=== PATIENT | male | born 1985 | race Caucasian/White ===

== ENCOUNTER 2022-05-08 12:57 | Emergency (ER) | payer OTHER, SELFPAY ==
[2022-05-08] VITALS (8 sets, daily range): BP systolic 110–156; BP diastolic 77–93; PULSE 58–111; RESP 16; TEMP 36.6–36.8; O2SAT 97–100; BMI 23.3
--- NOTE | ~2022-05-08 | CT_ITS ---
EXAMINATION: CT HEAD WITHOUT CONTRAST CLINICAL INFORMATION: Headache, altered mental status COMPARISON: CT head 06/12/2013 TECHNIQUE: Contiguous axial imaging was performed from the skull base to vertex without intravenous administration of contrast. This CT examination was performed using dose optimization techniques as appropriate, variously including the following: *Automated exposure control *Adjustment of mA and/or kV according to patient size (this includes techniques or standardized protocols for targeted exams where dose is matched to indication/reason for exam; i.e. extremities or head) *Use of iterative reconstruction technique DLP: 1096 mGy-cm FINDINGS: There is no evidence of acute intracranial hemorrhage or territorial infarction. No abnormal mass effect or midline shift is seen. Reyes to white matter differentiation is well preserved. No extra-axial fluid collections are identified. The ventricles are normal in size. No abnormal attenuation in the brain parenchyma. No acute calvarial fracture.. Paranasal sinuses and mastoid air cells are well-aerated. CT/CT head/brain wo IV con IMPRESSION: No CT evidence of acute intracranial hemorrhage or edematous territorial infarction.
--- NOTE | ~2022-05-08 | XR_ITS ---
EXAMINATION: CHEST 2 VIEWS CLINICAL INFORMATION: dizziness and ams . COMPARISON: 06/13/2013. TECHNIQUE: PA and lateral views of the chest obtained. FINDINGS: The lungs are well expanded. No focal infiltrate, effusion, edema, or pneumothorax. Cardiac and mediastinal silhouettes are within normal limits for technique. No acute bony abnormality seen XR/XR chest 2V IMPRESSION: No evidence of acute disease
--- NOTE | 2022-05-08 13:21 | ED_ITS ---
HPI - Dizziness General Chief Complaint: Dizziness <NEVIN Hernandez - Last Filed: 05/08/22 13:35> Stated Complaint: possible stroke last night? <NEVIN Hernandez - Last Filed: 05/08/22 13:35> Time Seen by Provider: 05/08/22 16:16 <NEVIN Hernandez - Last Filed: 05/08/22 13:35> Source: patient <NEVIN Tom - Last Filed: 05/09/22 16:28> Mode of arrival: ambulatory <NEVIN Tom - Last Filed: 05/09/22 16:28> Limitations: no limitations <NEVIN Tom Last Filed: 05/09/22 16:28> History of Present Illness HPI Narrative: 36-year-old male with past medical history of seizure presents to the ED for complaints of dizziness and nausea and vomiting. Patient states on Tuesday he had a steak at a restaurant that seem rare and on Tuesday started having multiple episodes of vomiting and diarrhea and also having multiple episodes of vomiting and also Tuesday vomiting with no other symptoms. The patient states on Tuesday he felt dizziness described as the room spinning. Patient said when he tried to move his head on the bed he felt dizzy. Patient states he try to get up he felt dizzy on Movements . Patient states he thought he had 1 episode during dizziness where his speech seems slurred like he wanted to say something but did not come out right. Patient did not have any other neuro symptoms such as visual loss, paralysis of extremities, or facial droop. Patient states dizziness improved want to be evaluated. Patient states he has had episodes of vertigo in the past but never officially diagnosed. Patient states history of marijuana use. Patient denies any history of crack cocaine heroine or alcohol abuse. Patient last used marijuana last week. <NEVIN Tom Last Filed: 05/09/22 16:28> Related Data Home Medications: Previous Rx's Medication Instructions Recorded meclizine 25 mg tablet 25 mg PO QID PRN dizziness 7 days 05/08/22 #28 tabs <NEVIN Hernandez - Last Filed: 05/08/22 13:35> Allergies/Adverse Reactions: Allergies Allergy/AdvReac Type Severity Reaction Status Date / Time acetaminophen [From VICODIN] Allergy Unknown VOMIT Verified 05/08/22 15:45 diazepam [From VALIUM] Allergy Unknown VOMIT Verified 05/08/22 15:45 hydrocodone [From VICODIN] Allergy Unknown VOMIT Verified 05/08/22 15:45 oxycodone [From PERCOCET] Allergy Unknown VOMIT Verified 05/08/22 15:45 <NEVIN Hernandez - Last Filed: 05/08/22 13:35> Review of Systems Review of Systems: Dizziness nausea vomiting <NEVIN Tom - Last Filed: 05/09/22 16:28> Yes all other systems are reviewed and are negative <NEVIN Tom - Last Filed: 05/09/22 16:28> PMFSH Past Medical History Medical History: Medical History (Updated 05/09/22 @ 00:01 by Kian Tolentino) Broken leg Epilepsy <NEVIN Hernandez - Last Filed: 05/08/22 13:35> Surgical History: Surgical History (Updated 05/08/22 @ 15:35 by Hilda Flanagan) History of discectomy <NEVIN Hernandez - Last Filed: 05/08/22 13:35> Social History Social History: Social History Alcohol intake: current Alcohol intake frequency: holidays/special occasions only Smoked in Last 30 Days: No Use of substances other than those prescribed or required for medical reasons: Yes Substance Use Type: Marijuana Advance Directives: No Advance Directives Information Provided: No <NEVIN Hernandez - Last Filed: 05/08/22 13:35> Physical Exam Vital Signs: Vital Signs: Last Vital Signs Temp 98.0 F 05/08/22 18:44 Pulse 73 05/08/22 18:44 Resp 16 05/08/22 18:44 BP 118/77 05/08/22 18:44 Pulse Ox 98 05/08/22 18:44 O2 Del Method 05/08/22 18:44 BMI result Body Mass Index 23.3 <NEVIN Hernandez - Last Filed: 05/08/22 13:35> Vital Signs: Last Vital Signs Temp 98.0 F 05/08/22 18:44 Pulse 73 05/08/22 18:44 Resp 16 05/08/22 18:44 BP 118/77 05/08/22 18:44 Pulse Ox 98 05/08/22 18:44 O2 Del Method 05/08/22 18:44 BMI result Body Mass Index 23.3 <NEVIN Tom Last Filed: 05/09/22 16:28> Const: General: cooperative, healthy appearing, comfortable, no acute distress, well developed, alert, awake and Physically active <NEVIN Tom Last Filed: 05/09/22 16:28> Orientation/consciousness: oriented to person, oriented to place, oriented to time and patient oriented x3 <NEVIN Tom Last Filed: 05/09/22 16:28> HEENT: Head: Yes normal to inspection, Yes No palpable skull fracture present, Yes normocephalic, Yes atraumatic and No abrasion <NEVIN Tom Last Filed: 05/09/22 16:28> Eyes: Other: Negative nystagmus <NEVIN Tom Filed: 05/09/22 16:28> General: appearance normal, both eyes and all related structures <NEVIN Tom Last Filed: 05/09/22 16:28> Pupils: Equal, round and reactive pupils present <NEVIN Tom Filed: 05/09/22 16:28> Neck: Neck: Yes normal visual inspection, Yes full ROM, Yes no lymphadenopathy, Yes no meningeal signs, Yes trachea midline, Yes supple, No anterior neck swelling and No tender <NEVIN Tom Filed: 05/09/22 16:28> Chest: Chest palpation & inspection: normal inspection of the chest and normal palpation of entire chest wall <NEVIN Tom Filed: 05/09/22 16:28> Breast/axilla palpation: normal palpation of the breasts <NEVIN Tom Last Filed: 05/09/22 16:28> Resp: Effort & Inspection: normal respiratory effort and able to speak in complete sentences <NEVIN Tom Filed: 05/09/22 16:28> Cardio: Jugular venous distension: no JVD <NEVIN Tom Last Filed: 05/09/22 16:28> Heart sounds: S1 normal heart sound present and S2 normal heart sound present <NEVIN Tom Last Filed: 05/09/22 16:28> GI: Inspection: Yes normal to inspection and No abdominal wall ecchymosis <NEVIN Tom Last Filed: 05/09/22 16:28> Palpation (GI): Soft to palpation, not firm, nontender, no guarding and not rigid <NEVIN Tom Last Filed: 05/09/22 16:28> : General: No CVA tenderness and Yes no CVA tenderness <NEVIN Tom Last Filed: 05/09/22 16:28> Back/Spine/Pelvis: Back: no CVA tenderness, No CVA tenderness and No back tenderness <NEVIN Tom Last Filed: 05/09/22 16:28> Skin: General skin exam: no rashes or lesions noted and elasticity normal <NEVIN Tom Mell Last Filed: 05/09/22 16:28> Neuro: Other: Negative facial droop. Negative slurred speech. Negative paralysis of extremities. Negative pronator drift. All extremities equal strength 5+. [id number] and rapid hand movement intact. Negative Romberg. Normal gait. <NEVIN Tom Mell Last Filed: 05/09/22 16:28> General: oriented to person, oriented to place, oriented to time, patient oriented x3, gait normal, tone normal, Normal light touch and pain sensation, no meningeal signs, no focal motor deficits, CN's II-XI intact bilaterally and normal sensation to monofilament <NEVIN Tom Last Filed: 05/09/22 16:28> Cranial nerves: Yes CN's II-XII intact bilaterally, Yes Facial sensation intact/muscles of mastication intact, Yes Intact sense of smell present, Yes Equal, round and reactive pupils present, Yes Normal accommodation reflex pr esent, Yes Bilaterally intact EOM present, Yes Nystagmus not present, Yes Normal facial strength present, Yes Midline tongue present and Yes Normal gag reflex present <NEVIN Tom Last Filed: 05/09/22 16:28> Cognition (Neuro): normal cognition <NEVIN Tom Last Filed: 05/09/22 16:28> Gait exam (Neuro): Normal gait present <NEVIN Tom Last Filed: 05/09/22 16:28> Motor exam (neuro): 5/5 motor strength present throughout <NEVIN Tom - Last Filed: 05/09/22 16:28> Extrem: General: Yes normal to inspection and Yes full ROM <NEVIN Tom Last Filed: 05/09/22 16:28> Psych: Appearance: grossly normal, well kempt and not disheveled <NEVIN Tom - Last Filed: 05/09/22 16:28> NIH Stroke Scale Internal: Initial- Upon Arrival <NEVIN Tom - Last Filed: 05/09/22 16:28> Level of Consciousness: Alert <NEVIN Tom - Last Filed: 05/09/22 16:28> Level of Consciousness Questions: Answers both questions correctly <NEVIN Tom Last Filed: 05/09/22 16:28> Level of Consciousness Commands: Performs both tasks correctly <NEVIN Tom Last Filed: 05/09/22 16:28> Best Gaze: Normal <NEVIN Tom - Last Filed: 05/09/22 16:28> Visual: No visual loss <NEVIN Tom - Last Filed: 05/09/22 16:28> Facial Palsy: Normal <NEVIN Tom - Last Filed: 05/09/22 16:28> Motor Arm (Right): No drift <NEVIN Tom - Last Filed: 05/09/22 16:28> Motor Arm (Left): No drift <NEVIN Tom - Last Filed: 05/09/22 16:28> Motor Leg (Right): No drift <NEVIN Tom - Last Filed: 05/09/22 16:28> Motor Leg (Left): No drift <NEVIN Tom - Last Filed: 05/09/22 16:28> Limb Ataxia: Absent <NEVIN Tom - Last Filed: 05/09/22 16:28> Sensory: Normal <NEVIN Tom - Last Filed: 05/09/22 16:28> Best Language: No aphasia <NEVIN Tom - Last Filed: 05/09/22 16:28> Dysarthia: Normal <NEVIN Tom Last Filed: 05/09/22 16:28> Extinction and Inattention: No abnormality <NEVIN Tom - Last Filed: 05/09/22 16:28> Score: 0 <NEVIN Tom - Last Filed: 05/09/22 16:28> Course Course Course Narrative: RME 13:20PM - 45yoM c PMHx of Hx of epilepsy on Lamictal taking as prescribed 400mg BID. Last seizure x 2 years ago presenting to the ED with complaints of I believe I had a stroke last night . Reports he started feeling Dizziness arpund 9pm, could not walk or speak, fell on head then crawled to his room because he could not get back up. Reports that this episode lasted approximately 40 seconds. Reports his girlfriend was there and he was trying to explain to her what was happening. Girlfriend reports that he was not shaking. He reports that this does not feel like his seizures/epilepsy. Reports that he smokes marijuana denies any other drug usage. Girlfriend is at home. Patient is here with his parents. On exam patient is alert and oriented x3. Normal steady gait. Negative pronator drift. Negative nystagmus. Extraocular movements are intact. 5/5 strength for all 4 extremities. Sensation is intact. Normal steady gait. NIHSS score 0 at this time. Patient has non disabling symptoms therefore not a tPA candidate. Plan: At this time, labs, CT scan of brain, EKG, COVID/RSV/flu swab all ordered at this time. Patient will be sent to the ER for further evaluation treatment. <NEVIN Hernandez - Last Filed: 05/08/22 13:35> Reevaluation(s) Reevaluation #1: Patient presently alert oriented x3. Head CT scan negative after having symptoms the past 4 days. EKG negative STEMI troponin negative. Presently no neuro deficits. Negative for signs of posterior infarct. Patient has normal gait and negative Romberg. Electrolytes are normal. Vital signs are stable. Waiting on orthostatics. Will order meclizine. Will discuss case with Dr. Cho. Not suspecting posterior stroke. History physical exam does not indicate seizure <NEVIN Tom Last Filed: 05/09/22 16:28> Time: 17:15 <NEVIN Tom - Last Filed: 05/09/22 16:28> Reevaluation #2: Orthostatics negative. After meclizine patient feels better. Reviewed patient's EKG negative STEMI. Case discussed with doctors Tammie. States patient most likely did not have TIA and does not need to be admitted or need MRI. He does not recommend aspirin on discharge. States patient may have had atypical partial seizure versus vertigo or food posoining. Patient informed to follow-up with primary care provider and neurologist. <NEVIN Tom - Last Filed: 05/09/22 16:28> Time: 18:46 <NEVIN Tom - Last Filed: 05/09/22 16:28> Medications Administered Discontinued Medications Generic Name Dose Route Start Last Admin Trade Name Freq PRN Reason Stop Dose Admin Acetaminophen 650 mg 05/08/22 17:50 05/08/22 18:10 Acetaminophen 325 Mg Tablet PO 05/08/22 17:51 650 mg ONCE ONE Administration Meclizine HCl 50 mg 05/08/22 17:04 05/08/22 17:43 Meclizine Hcl 25 Mg Tablet PO 05/08/22 17:05 50 mg ONCE ONE Administration <NEVIN Hernandez - Last Filed: 05/08/22 13:35> Medications Administered Discontinued Medications Generic Name Dose Route Start Last Admin Trade Name Freq PRN Reason Stop Dose Admin Acetaminophen 650 mg 05/08/22 17:50 05/08/22 18:10 Acetaminophen 325 Mg Tablet PO 05/08/22 17:51 650 mg ONCE ONE Administration Meclizine HCl 50 mg 05/08/22 17:04 05/08/22 17:43 Meclizine Hcl 25 Mg Tablet PO 05/08/22 17:05 50 mg ONCE ONE Administration <NEVIN Tom Last Filed: 05/09/22 16:28> Medical Decision Making Medical Decision Making MDM Narrative: 36-year-old male presents to the ED with dizziness, nausea vomiting with normal workup. Patient not in distress. History physical exam does not indica te atypical [place], stroke, meningitis, brain bleed, COVID, or any other life- threatening diseases. <NEVIN Tom Last Filed: 05/09/22 16:28> Differential Diagnosis Differential Diagnoses: The differential diagnosis associated with the presentation includes (Vertigo, stroke, COVID, food poisoning, myocardial infarction,) <NEVIN Tom - Last Filed: 05/09/22 16:28> Admission/Observation observation was considered. <NEVIN Tom - Last Filed: 05/09/22 16:28> Lab Data MDM Lab Attestation statement: I reviewed the patient's lab results. <NEVIN Tom - Last Filed: 05/09/22 16:28> Result Diagrams: 05/08/22 13:56 05/08/22 13:56 <NEVIN Hernandez - Last Filed: 05/08/22 13:35> Labs: Lab Results 05/08/22 05/08/22 05/08/22 Range/Units 13:56 13:56 13:56 WBC 6.1 (4.8-10.8) X10*3/uL RBC 4.89 (4.60-5.80) X10*6/uL Hgb 15.6 (14.0-18.0) g/dl Hct 43.8 (42.0-52.0) % MCV 89.6 (80.0-98.0) fL MCH 31.9 (27.0-33.0) pg MCHC 35.6 (31.0-36.0) g/dl RDW 12.3 (11.0-16.0) % Plt Count 199 (160-400) X10*3/uL MPV 9.5 (9.4-12.4) fL Immature Gran % (Auto) 0.2 (0.0-0.4) % Neut % (Auto) 56.8 (45-73) % Lymph % (Auto) 31.1 (20-40) % Ocean % (Auto) 10.4 (2-11) % Eos % (Auto) 1.0 (0-4) % Baso % (Auto) 0.5 (0-2) % Lymph # (Auto) 1.9 (1.2-4.9) X10*3/uL Ocean # (Auto) 0.6 (0.1-1.2) X10*3/uL Eos # (Auto) 0.1 (0.0-0.4) X10*3/uL Baso # (Auto) 0.0 (0.0-0.2) X10*3/uL Abs Immat Gran (auto) 0.01 (0.00-0.03) X10*3/uL Absolute Neuts (auto) 3.5 (2.0-8.3) x10*3/uL Absolute Nucleated RBC 0.000 (0.0-0.012) X10*3/uL Nucleated RBC % (auto) 0.0 (0.0-0.2) /100WBC PT 12.0 (10.0-13.1) SEC INR 1.0 (0.9-1.1) Sodium 138 (135-145) mmol/L Potassium 3.9 (3.3-5.1) mmol/L Chloride 105 (96-108) mmol/L Carbon Dioxide 23 (22-29) mmol/L Anion Gap 14 (12-20) BUN 18 H (9-16) mg/dL Creatinine 1.09 (0.5-1.4) mg/dL Estim Creat Clear Calc 98.5 Estimated GFR > 60 Random Glucose 108 (60-115) mg/dL Calcium 9.2 (8.4-10.2) mg/dL Magnesium 1.9 (1.6-2.6) mg/dL Total Bilirubin 0.7 (0.0-1.0) mg/dL AST 21 (5-37) U/L ALT 27 (0-40) U/L Alkaline Phosphatase 96 (39-117) U/L Troponin I High Sens (<3.5-35.0) ng/L Total Protein 6.3 L (6.5-8.0) g/dL Albumin 4.2 (3.5-5.0) g/dL Urine Color Urine Appearance Urine pH (5.0-9.0) Ur Specific [place] (1.005-1.025) Urine Protein (Neg-Trace) mg/dL Urine Glucose (UA) (Negative) mg/dL Urine Ketones (Negative) mg/dL Urine Blood (Negative) Urine Nitrite (Negative) Ur Leukocyte Esterase (Negative) Urine Opiates Screen (Not Detect) Urine Fentanyl Screen (Not Detect) Ur Barbiturates Screen (Not Detect) Ur Phencyclidine Scrn (Not Detect) Ur Amphetamines Screen (Not Detect) U Benzodiazepines Scrn (Not Detect) Urine Cocaine Screen (Not Detect) U Marijuana (THC) Screen (Not Detect) Ethyl Alcohol < 10 mg/dL Influenza Type A (PCR) (Negative) Influenza Type B (PCR) (Negative) RSV RNA Qual (PCR) (Negative) SARS-CoV-2 RNA (RT-PCR) (Negative) 05/08/22 05/08/22 05/08/22 Range/Units 13:56 13:56 15:50 WBC (4.8-10.8) X10*3/uL RBC (4.60-5.80) X10*6/uL Hgb (14.0-18.0) g/dl Hct (42.0-52.0) % MCV (80.0-98.0) fL MCH (27.0-33.0) pg MCHC (31.0-36.0) g/dl RDW (11.0-16.0) % Plt Count (160-400) X10*3/uL MPV (9.4-12.4) fL Immature Gran % (Auto) (0.0-0.4) % Neut % (Auto) (45-73) % Lymph % (Auto) (20-40) % Ocean % (Auto) (2-11) % Eos % (Auto) (0-4) % Baso % (Auto) (0-2) % Lymph # (Auto) (1.2-4.9) X10*3/uL Ocean # (Auto) (0.1-1.2) X10*3/uL Eos # (Auto) (0.0-0.4) X10*3/uL Baso # (Auto) (0.0-0.2) X10*3/uL Abs Immat Gran (auto) (0.00-0.03) X10*3/uL Absolute Neuts (auto) (2.0-8.3) x10*3/uL Absolute Nucleated RBC (0.0-0.012) X10*3/uL Nucleated RBC % (auto) (0.0-0.2) /100WBC PT (10.0-13.1) SEC INR (0.9-1.1) Sodium (135-145) mmol/L Potassium (3.3-5.1) mmol/L Chloride (96-108) mmol/L Carbon Dioxide (22-29) mmol/L Anion Gap (12-20) BUN (9-16) mg/dL Creatinine (0.5-1.4) mg/dL Estim Creat Clear Calc Estimated GFR Random Glucose (60-115) mg/dL Calcium (8.4-10.2) mg/dL Magnesium (1.6-2.6) mg/dL Total Bilirubin (0.0-1.0) mg/dL AST (5-37) U/L ALT (0-40) U/L Alkaline Phosphatase (39-117) U/L Troponin I High Sens 3.6 (<3.5-35.0) ng/L Total Protein (6.5-8.0) g/dL Albumin (3.5-5.0) g/dL Urine Color Urine Appearance Urine pH (5.0-9.0) Ur Specific [place] (1.005-1.025) Urine Protein (Neg-Trace) mg/dL Urine Glucose (UA) (Negative) mg/dL Urine Ketones (Negative) mg/dL Urine Blood (Negative) Urine Nitrite (Negative) Ur Leukocyte Esterase (Negative) Urine Opiates Screen Not Detected (Not Detect) Urine Fentanyl Screen Not Detected (Not Detect) Ur Barbiturates Screen Not Detected (Not Detect) Ur Phencyclidine Scrn Not Detected (Not Detect) Ur Amphetamines Screen Not Detected (Not Detect) U Benzodiazepines Scrn Not Detected (Not Detect) Urine Cocaine Screen Not Detected (Not Detect) U Marijuana (THC) Screen POSITIVE H (Not Detect) Ethyl Alcohol mg/dL Influenza Type A (PCR) NEGATIVE (Negative) Influenza Type B (PCR) NEGATIVE (Negative) RSV RNA Qual (PCR) NEGATIVE (Negative) SARS-CoV-2 RNA (RT-PCR) NEGATIVE (Negative) 05/08/22 Range/Units 15:50 WBC (4.8-10.8) X10*3/uL RBC (4.60-5.80) X10*6/uL Hgb (14.0-18.0) g/dl Hct (42.0-52.0) % MCV (80.0-98.0) fL MCH (27.0-33.0) pg MCHC (31.0-36.0) g/dl RDW (11.0-16.0) % Plt Count (160-400) X10*3/uL MPV (9.4-12.4) fL Immature Gran % (Auto) (0.0-0.4) % Neut % (Auto) (45-73) % Lymph % (Auto) (20-40) % Ocean % (Auto) (2-11) % Eos % (Auto) (0-4) % Baso % (Auto) (0-2) % Lymph # (Auto) (1.2-4.9) X10*3/uL Ocean # (Auto) (0.1-1.2) X10*3/uL Eos # (Auto) (0.0-0.4) X10*3/uL Baso # (Auto) (0.0-0.2) X10*3/uL Abs Immat Gran (auto) (0.00-0.03) X10*3/uL Absolute Neuts (auto) (2.0-8.3) x10*3/uL Absolute Nucleated RBC (0.0-0.012) X10*3/uL Nucleated RBC % (auto) (0.0-0.2) /100WBC PT (10.0-13.1) SEC INR (0.9-1.1) Sodium (135-145) mmol/L Potassium (3.3-5.1) mmol/L Chloride (96-108) mmol/L Carbon Dioxide (22-29) mmol/L Anion Gap (12-20) BUN (9-16) mg/dL Creatinine (0.5-1.4) mg/dL Estim Creat Clear Calc Estimated GFR Random Glucose (60-115) mg/dL Calcium (8.4-10.2) mg/dL Magnesium (1.6-2.6) mg/dL Total Bilirubin (0.0-1.0) mg/dL AST (5-37) U/L ALT (0-40) U/L Alkaline Phosphatase (39-117) U/L Troponin I High Sens (<3.5-35.0) ng/L Total Protein (6.5-8.0) g/dL Albumin (3.5-5.0) g/dL Urine Color Yellow Urine Appearance Clear Urine pH 8.5 (5.0-9.0) Ur Specific [place] 1.020 (1.005-1.025) Urine Protein Negative (Neg-Trace) mg/dL Urine Glucose (UA) Negative (Negative) mg/dL Urine Ketones Negative (Negative) mg/dL Urine Blood Negative (Negative) Urine Nitrite Negative (Negative) Ur Leukocyte Esterase Negative (Negative) Urine Opiates Screen (Not Detect) Urine Fentanyl Screen (Not Detect) Ur Barbiturates Screen (Not Detect) Ur Phencyclidine Scrn (Not Detect) Ur Amphetamines Screen (Not Detect) U Benzodiazepines Scrn (Not Detect) Urine Cocaine Screen (Not Detect) U Marijuana (THC) Screen (Not Detect) Ethyl Alcohol mg/dL Influenza Type A (PCR) (Negative) Influenza Type B (PCR) (Negative) RSV RNA Qual (PCR) (Negative) SARS-CoV-2 RNA (RT-PCR) (Negative) <NEVIN Hernandez - Last Filed: 05/08/22 13:35> Lab Results 05/08/22 05/08/22 05/08/22 Range/Units 13:56 13:56 13:56 WBC 6.1 (4.8-10.8) X10*3/uL RBC 4.89 (4.60-5.80) X10*6/uL Hgb 15.6 (14.0-18.0) g/dl Hct 43.8 (42.0-52.0) % MCV 89.6 (80.0-98.0) fL MCH 31.9 (27.0-33.0) pg MCHC 35.6 (31.0-36.0) g/dl RDW 12.3 (11.0-16.0) % Plt Count 199 (160-400) X10*3/uL MPV 9.5 (9.4-12.4) fL Immature Gran % (Auto) 0.2 (0.0-0.4) % Neut % (Auto) 56.8 (45-73) % Lymph % (Auto) 31.1 (20-40) % Ocean % (Auto) 10.4 (2-11) % Eos % (Auto) 1.0 (0-4) % Baso % (Auto) 0.5 (0-2) % Lymph # (Auto) 1.9 (1.2-4.9) X10*3/uL Ocean # (Auto) 0.6 (0.1-1.2) X10*3/uL Eos # (Auto) 0.1 (0.0-0.4) X10*3/uL Baso # (Auto) 0.0 (0.0-0.2) X10*3/uL Abs Immat Gran (auto) 0.01 (0.00-0.03) X10*3/uL Absolute Neuts (auto) 3.5 (2.0-8.3) x10*3/uL Absolute Nucleated RBC 0.000 (0.0-0.012) X10*3/uL Nucleated RBC % (auto) 0.0 (0.0-0.2) /100WBC PT 12.0 (10.0-13.1) SEC INR 1.0 (0.9-1.1) Sodium 138 (135-145) mmol/L Potassium 3.9 (3.3-5.1) mmol/L Chloride 105 (96-108) mmol/L Carbon Dioxide 23 (22-29) mmol/L Anion Gap 14 (12-20) BUN 18 H (9-16) mg/dL Creatinine 1.09 (0.5-1.4) mg/dL Estim Creat Clear Calc 98.5 Estimated GFR > 60 Random Glucose 108 (60-115) mg/dL Calcium 9.2 (8.4-10.2) mg/dL Magnesium 1.9 (1.6-2.6) mg/dL Total Bilirubin 0.7 (0.0-1.0) mg/dL AST 21 (5-37) U/L ALT 27 (0-40) U/L Alkaline Phosphatase 96 (39-117) U/L Troponin I High Sens (<3.5-35.0) ng/L Total Protein 6.3 L (6.5-8.0) g/dL Albumin 4.2 (3.5-5.0) g/dL Urine Color Urine Appearance Urine pH (5.0-9.0) Ur Specific [place] (1.005-1.025) Urine Protein (Neg-Trace) mg/dL Urine Glucose (UA) (Negative) mg/dL Urine Ketones (Negative) mg/dL Urine Blood (Negative) Urine Nitrite (Negative) Ur Leukocyte Esterase (Negative) Urine Opiates Screen (Not Detect) Urine Fentanyl Screen (Not Detect) Ur Barbiturates Screen (Not Detect) Ur Phencyclidine Scrn (Not Detect) Ur Amphetamines Screen (Not Detect) U Benzodiazepines Scrn (Not Detect) Urine Cocaine Screen (Not Detect) U Marijuana (THC) Screen (Not Detect) Ethyl Alcohol < 10 mg/dL Influenza Type A (PCR) (Negative) Influenza Type B (PCR) (Negative) RSV RNA Qual (PCR) (Negative) SARS-CoV-2 RNA (RT-PCR) (Negative) 05/08/22 05/08/22 05/08/22 Range/Units 13:56 13:56 15:50 WBC (4.8-10.8) X10*3/uL RBC (4.60-5.80) X10*6/uL Hgb (14.0-18.0) g/dl Hct (42.0-52.0) % MCV (80.0-98.0) fL MCH (27.0-33.0) pg MCHC (31.0-36.0) g/dl RDW (11.0-16.0) % Plt Count (160-400) X10*3/uL MPV (9.4-12.4) fL Immature Gran % (Auto) (0.0-0.4) % Neut % (Auto) (45-73) % Lymph % (Auto) (20-40) % Ocean % (Auto) (2-11) % Eos % (Auto) (0-4) % Baso % (Auto) (0-2) % Lymph # (Auto) (1.2-4.9) X10*3/uL Ocean # (Auto) (0.1-1.2) X10*3/uL Eos # (Auto) (0.0-0.4) X10*3/uL Baso # (Auto) (0.0-0.2) X10*3/uL Abs Immat Gran (auto) (0.00-0.03) X10*3/uL Absolute Neuts (auto) (2.0-8.3) x10*3/uL Absolute Nucleated RBC (0.0-0.012) X10*3/uL Nucleated RBC % (auto) (0.0-0.2) /100WBC PT (10.0-13.1) SEC INR (0.9-1.1) Sodium (135-145) mmol/L Potassium (3.3-5.1) mmol/L Chloride (96-108) mmol/L Carbon Dioxide (22-29) mmol/L Anion Gap (12-20) BUN (9-16) mg/dL Creatinine (0.5-1.4) mg/dL Estim Creat Clear Calc Estimated GFR Random Glucose (60-115) mg/dL Calcium (8.4-10.2) mg/dL Magnesium (1.6-2.6) mg/dL Total Bilirubin (0.0-1.0) mg/dL AST (5-37) U/L ALT (0-40) U/L Alkaline Phosphatase (39-117) U/L Troponin I High Sens 3.6 (<3.5-35.0) ng/L Total Protein (6.5-8.0) g/dL Albumin (3.5-5.0) g/dL Urine Color Urine Appearance Urine pH (5.0-9.0) Ur Specific [place] (1.005-1.025) Urine Protein (Neg-Trace) mg/dL Urine Glucose (UA) (Negative) mg/dL Urine Ketones (Negative) mg/dL Urine Blood (Negative) Urine Nitrite (Negative) Ur Leukocyte Esterase (Negative) Urine Opiates Screen Not Detected (Not Detect) Urine Fentanyl Screen Not Detected (Not Detect) Ur Barbiturates Screen Not Detected (Not Detect) Ur Phencyclidine Scrn Not Detected (Not Detect) Ur Amphetamines Screen Not Detected (Not Detect) U Benzodiazepines Scrn Not Detected (Not Detect) Urine Cocaine Screen Not Detected (Not Detect) U Marijuana (THC) Screen POSITIVE H (Not Detect) Ethyl Alcohol mg/dL Influenza Type A (PCR) NEGATIVE (Negative) Influenza Type B (PCR) NEGATIVE (Negative) RSV RNA Qual (PCR) NEGATIVE (Negative) SARS-CoV-2 RNA (RT-PCR) NEGATIVE (Negative) 05/08/22 Range/Units 15:50 WBC (4.8-10.8) X10*3/uL RBC (4.60-5.80) X10*6/uL Hgb (14.0-18.0) g/dl Hct (42.0-52.0) % MCV (80.0-98.0) fL MCH (27.0-33.0) pg MCHC (31.0-36.0) g/dl RDW (11.0-16.0) % Plt Count (160-400) X10*3/uL MPV (9.4-12.4) fL Immature Gran % (Auto) (0.0-0.4) % Neut % (Auto) (45-73) % Lymph % (Auto) (20-40) % Ocean % (Auto) (2-11) % Eos % (Auto) (0-4) % Baso % (Auto) (0-2) % Lymph # (Auto) (1.2-4.9) X10*3/uL Ocean # (Auto) (0.1-1.2) X10*3/uL Eos # (Auto) (0.0-0.4) X10*3/uL Baso # (Auto) (0.0-0.2) X10*3/uL Abs Immat Gran (auto) (0.00-0.03) X10*3/uL Absolute Neuts (auto) (2.0-8.3) x10*3/uL Absolute Nucleated RBC (0.0-0.012) X10*3/uL Nucleated RBC % (auto) (0.0-0.2) /100WBC PT (10.0-13.1) SEC INR (0.9-1.1) Sodium (135-145) mmol/L Potassium (3.3-5.1) mmol/L Chloride (96-108) mmol/L Carbon Dioxide (22-29) mmol/L Anion Gap (12-20) BUN (9-16) mg/dL Creatinine (0.5-1.4) mg/dL Estim Creat Clear Calc Estimated GFR Random Glucose (60-115) mg/dL Calcium (8.4-10.2) mg/dL Magnesium (1.6-2.6) mg/dL Total Bilirubin (0.0-1.0) mg/dL AST (5-37) U/L ALT (0-40) U/L Alkaline Phosphatase (39-117) U/L Troponin I High Sens (<3.5-35.0) ng/L Total Protein (6.5-8.0) g/dL Albumin (3.5-5.0) g/dL Urine Color Yellow Urine Appearance Clear Urine pH 8.5 (5.0-9.0) Ur Specific [place] 1.020 (1.005-1.025) Urine Protein Negative (Neg-Trace) mg/dL Urine Glucose (UA) Negative (Negative) mg/dL Urine Ketones Negative (Negative) mg/dL Urine Blood Negative (Negative) Urine Nitrite Negative (Negative) Ur Leukocyte Esterase Negative (Negative) Urine Opiates Screen (Not Detect) Urine Fentanyl Screen (Not Detect) Ur Barbiturates Screen (Not Detect) Ur Phencyclidine Scrn (Not Detect) Ur Amphetamines Screen (Not Detect) U Benzodiazepines Scrn (Not Detect) Urine Cocaine Screen (Not Detect) U Marijuana (THC) Screen (Not Detect) Ethyl Alcohol mg/dL Influenza Type A (PCR) (Negative) Influenza Type B (PCR) (Negative) RSV RNA Qual (PCR) (Negative) SARS-CoV-2 RNA (RT-PCR) (Negative) <NEVIN Tom - Last Filed: 05/09/22 16:28> ABG Data Attestation ABG: I personally reviewed and interpreted this ABG as follows: <NEVIN Tom Last Filed: 05/09/22 16:28> Independent Interpretation I performed an independent interpretation of an: EKG <NEVIN Tom Last Filed: 05/09/22 16:28> Interpretation: Normal sinus rhythm. Ventricular rate 78. Urine to be 144. QRS 80. QTC 440. <NEVIN Tom Last Filed: 05/09/22 16:28> Radiology Impression Discussion of test interpretation with radiology: I have reviewed the radiologist's reading. <NEVIN Tom Last Filed: 05/09/22 16:28> Independent Historian Clinical information obtained from an independent historian. History obtained from or confirmed by: Spouse <NEVIN Tom Last Filed: 05/09/22 16:28> Prescription Management I considered prescription management with: Other (meclizine) <NEVIN Tom Last Filed: 05/09/22 16:28> Discharge Plan Discharge Clinical Impression: Vertigo <NEVIN Hernandez - Last Filed: 05/08/22 13:35> Patient Disposition: Home, Self-Care <NEVIN Hernandez - Last Filed: 05/08/22 13:35> Instructions: Vertigo (ED), Dizziness (ED) <NEVIN Hernandez - Last Filed: 05/08/22 13:35> Additional Instructions: Please follow-up with neurologist and primary care provider. Return to the ED immediately for nausea, vomiting, headache, slurred speech, facial droop, paralysis of extremities, dizziness, inability to walk, chest pain, shortness of breath, loss vision, or any other concerning symptoms <NEVIN Hernandez - Last Filed: 05/08/22 13:35> Prescriptions: New meclizine 25 mg tablet 25 mg PO QID PRN (Reason: dizziness) 7 Days Qty: 28 0RF <NEVIN Hernandez - Last Filed: 05/08/22 13:35> Referrals: [facility]Provider Group] (Dizziness/vertigo) Yo Zuñiga MD [Physician] - (Vertigo/dizziness. History of seizure) Mychal Cardona [Physician] - (Dizziness/vertigo) <NEVIN Hernandez - Last Filed: 05/08/22 13:35> Stand Alone Forms: Work/School Release <NEVIN Hernandez - Last Filed: 05/08/22 13:35> Interventions: ED Discharge Assessment Last Done: 05/08/22 19:11 <NEVIN Hernandez - Last Filed: 05/08/22 13:35> Discharge Date/Time: 05/08/22 19:11 <NEVIN Hernandez - Last Filed: 05/08/22 13:35> Print Language: Mohawk <NEVIN Hernandez - Last Filed: 05/08/22 13:35>
--- NOTE | 2022-05-08 13:26 | ECG_ITS ---
Test Reason : DIZZY Blood Pressure : / mmHG Vent. Rate : 078 BPM Atrial Rate : 078 BPM P-R Int : 144 ms QRS Dur : 080 ms QT Int : 386 ms P-R-T Axes : 070 075 070 degrees QTc Int : 440 ms Normal sinus rhythm Normal ECG When compared with ECG of 04-OCT-2010 19:42, Vent. rate has increased BY 32 BPM Referred By: Rocio Bain Electronically Signed By:NICOLLE SIMMS MD
[2022-05-08 14:03] LABS: Basophils Percent Auto 0.5 % (0-2); Eosinophils Absolute Auto 0.1 X10*3/uL (0.0-0.4); Hematocrit 43.8 % (42.0-52.0); Hemoglobin 15.6 g/dl (14.0-18.0); Imm Gran Abs Auto 0.01 X10*3/uL (0.00-0.03); Imm Gran Pct Auto 0.2 % (0.0-0.4); Lymphocytes Absolute Auto 1.9 X10*3/uL (1.2-4.9); Lymphocytes Percent Auto 31.1 % (20-40); MANUAL DIFF FLAG NO; Mean Corpuscular HGB Conc 35.6 g/dl (31.0-36.0); Mean Corpuscular Hemoglobin 31.9 pg (27.0-33.0); Mean Corpuscular Volume 89.6 fL (80.0-98.0); Mean Platelet Volume 9.5 fL (9.4-12.4); Monocytes Absolute Auto 0.6 X10*3/uL (0.1-1.2); Monocytes Percent Auto 10.4 % (2-11); Neutrophils Absolute Auto 3.5 x10*3/uL (2.0-8.3); Neutrophils Percent Auto 56.8 % (45-73); Platelet Count 199 X10*3/uL (160-400); Red Blood Count 4.89 X10*6/uL (4.60-5.80); Red Cell Distribution Width 12.3 % (11.0-16.0); White Blood Count 6.1 X10*3/uL (4.8-10.8)
[2022-05-08 14:18] LABS: Alanine Aminotransferase 27 U/L (0-40); Albumin Level 4.2 g/dL (3.5-5.0); Alkaline Phosphatase 96 U/L (39-117); Anion Gap 14 (12-20); Aspartate Amino Transferase 21 U/L (5-37); Bilirubin Total 0.7 mg/dL (0.0-1.0); Blood Urea Nitrogen 18 mg/dL (9-16); Calcium 9.2 mg/dL (8.4-10.2); Carbon Dioxide 23 mmol/L (22-29); Chloride 105 mmol/L (96-108); Creatinine Clr Calc Pharmacy 98.5; Estimated Glomerular Filt Rate > 60; Ethanol < 10 mg/dL; Glucose Random 108 mg/dL (60-115); Magnesium 1.9 mg/dL (1.6-2.6); Potassium 3.9 mmol/L (3.3-5.1); Sodium 138 mmol/L (135-145); Total Protein 6.3 g/dL (6.5-8.0)
[2022-05-08 14:30] LABS: Troponin-I High Sensitivity 3.6 ng/L (<3.5-35.0)
[2022-05-08 14:43] LABS: Influenza A PCR NEGATIVE (Negative); Influenza B PCR NEGATIVE (Negative); Resp Syncy Virus RNA Qual PCR NEGATIVE (Negative); SARS COV2 PCR INHOUSE NEGATIVE (Negative)
--- NOTE | 2022-05-08 16:00 | PC.NURSE ---
pt AOX3, VSS, no signs of neurological problems per mini mental exam. Awaiting results from urine culture.
[2022-05-08 16:19] LABS: Appearance Urine Clear; Color Urine Yellow; Glucose Urine UA Negative (Negative); Leukocyte Esterase Urine Negative (Negative); Nitrite Urine Negative (Negative); PH 8.5 (5.0-9.0); Urine Blood Negative (Negative); Urine Ketones Negative (Negative); Urine Protein Negative (Neg-Trace)
[2022-05-08 16:51] LABS: Amphetamine Screen Urine Not Detected (Not Detect); Barbiturates, Urine Not Detected (Not Detect); Benzodiazepines Screen Urine Not Detected (Not Detect); Cannabinoid Screen Urine POSITIVE (Not Detect); Cocaine Screen Urine Not Detected (Not Detect); Fentanyl, urine Not Detected (Not Detect); Opiate Screen Urine Not Detected (Not Detect); Phencyclidine Screen Urine Not Detected (Not Detect)
[2022-05-08] MEDS: Meclizine HCl 25 MG TABLET 50 MG PO (17:43)
--- NOTE | 2022-05-08 17:52 | PC.NURSE ---
otho stats negative, patient medicated for dizziness per order.
[2022-05-08] MEDS: Acetaminophen 325 MG TABLET 650 MG PO (18:10)
--- NOTE | 2022-05-08 18:16 | PC.NURSE ---
pt medicated with tylenol for headache per order. Awaiting provider and discharge.
[2022-05-13 10:34] LABS: Lamotrigine Lamictal 14.6 mcg/mL (4.0-18.0)
== END 2022-05-08 19:11 | disposition home or self-care (01) ==
PROVIDERS: Physician Assistant Medical; Emergency Provider Internal Medicine
DX: R42 Dizziness and giddiness (principal); R51.9 Headache, unspecified; Z20.822 Contact with and (suspected) exposure to COVID-19; Z20.828 Contact with and (suspected) exposure to other viral communicable diseases; F12.90 Cannabis use, unspecified, uncomplicated; G40.909 Epilepsy, unspecified, not intractable, without status epilepticus; Z79.899 Other long term (current) drug therapy
CPT/HCPCS: 0241U; 36415; 70450; 71046; 80053; 80175; 80307; 81003; 82077; 83735; 84484; 85025; 85610; 93005; 99284; 99285

== ENCOUNTER 2022-07-08 08:33 | Outpatient (REF) | payer OTHER, SELFPAY ==
[2022-07-08 09:04] LABS: Hematocrit 46.3 % (42.0-52.0); Hemoglobin 15.8 g/dl (14.0-18.0); Mean Corpuscular HGB Conc 34.1 g/dl (31.0-36.0); Mean Corpuscular Hemoglobin 31.6 pg (27.0-33.0); Mean Corpuscular Volume 92.6 fL (80.0-98.0); Mean Platelet Volume 9.8 fL (9.4-12.4); Platelet Count 182 X10*3/uL (160-400); Red Cell Distribution Width 12.9 % (11.0-16.0); White Blood Count 5.3 X10*3/uL (4.8-10.8)
[2022-07-08 09:36] LABS: Alanine Aminotransferase 33 U/L (0-40); Albumin Level 4.5 g/dL (3.5-5.0); Alkaline Phosphatase 107 U/L (39-117); Anion Gap 11 (12-20); Aspartate Amino Transferase 24 U/L (5-37); Bilirubin Total 0.5 mg/dL (0.0-1.0); Blood Urea Nitrogen 17 mg/dL (9-16); Calcium 9.7 mg/dL (8.4-10.2); Carbon Dioxide 27 mmol/L (22-29); Chloride 109 mmol/L (96-108); Cholesterol 157 mg/dL; Estimated Glomerular Filt Rate > 60; Glucose Random 98 mg/dL (60-115); HDL Cholesterol 48 mg/dL; LDL Cholesterol Calculated 97 mg/dl; Potassium 4.8 mmol/L (3.3-5.1); Sodium 142 mmol/L (135-145); Total Protein 6.6 g/dL (6.5-8.0); Triglycerides 63 mg/dL
[2022-07-08 09:58] LABS: TSH reflex Free T4 1.71 uIU/mL (0.32-4.0)
== END 2022-07-08 08:34 | disposition home or self-care (01) ==
LOC: HO.LAB 08:33
PROVIDERS: PCP Nurse Practitioner Family; Visit Provider Nurse Practitioner Family
DX: Z13.0 Encounter for screening for diseases of the blood and blood-forming organs and certain disorders involving the immune mechanism (principal); Z13.1 Encounter for screening for diabetes mellitus; Z13.220 Encounter for screening for lipoid disorders; Z13.29 Encounter for screening for other suspected endocrine disorder
CPT/HCPCS: 36415; 80053; 80061; 84443; 85027

== ENCOUNTER 2022-08-10 15:24 | Outpatient (REF) | payer OTHER, SELFPAY ==
--- NOTE | ~2022-08-10 | US_ITS ---
EXAMINATION: US ABDOMEN LIMITED CLINICAL INFORMATION: Localized swelling, mass or lump, unspecified. Skin lump noted to right abdomen under ribs and left back thoracic area. COMPARISON: None available. TECHNIQUE: Real-time imaging of the right upper quadrant inferior to ribs and left lower back. FINDINGS: Two echogenic masses are seen in the subcutaneous tissues, one in the right mid abdomen measuring 1.0 x 0.5 x 1.8 cm and the other in the left back measuring 1.4 x 1.2 x 2.4 cm. The appearances of these masses are suggestive of lipomas. No other masses or abnormal fluid collections are seen. US/US abdomen limited IMPRESSION: The masses in the subcutaneous tissues of the right mid abdomen and in the left back have the appearance of lipomas. If absolute certainty of diagnosis is needed, MRI could always be performed.
== END 2022-08-10 15:25 | disposition home or self-care (01) ==
LOC: HO.US 15:24
PROVIDERS: PCP Nurse Practitioner Family; Visit Provider Nurse Practitioner Family
DX: R22.9 Localized swelling, mass and lump, unspecified (principal)
CPT/HCPCS: 76705

== ENCOUNTER → 2022-09-08 08:56 | Outpatient (BNVA) | payer OTHER, SELFPAY | PROVIDERS: PCP Nurse Practitioner Family; Referring Provider Nurse Practitioner Family; Visit Provider Surgery | DX: D17.9 Benign lipomatous neoplasm, unspecified (principal) | CPT/HCPCS: 99202 ==

== ENCOUNTER 2023-04-27 15:18 | Outpatient (AMB) | payer OTHER, SELFPAY ==
--- NOTE | 2023-04-27 15:46 | A.OFFPC_ITS ---
Vital Signs 04/27/23 15:47 Height 5 ft 10 in Weight 181 lb 4 oz BMI 26.0 BP 118/86 Blood Pressure Location Lt brachial Position Sitting Pulse 78 Pulse Source Pulse Oximeter Pulse Oximetry (%) 99 Oxygen Delivery Method Room Air Intake Visit Reasons: Trans. of Care from AO/Genital Warts Removal Intake Note: The patient is here for an office visit. They are a patient of [facility] and are requesting STD screening, as well as a possible referral for the removal of genital warts. 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 Accompanied by: Self / Same As Patient Allergies acetaminophen [From VICODIN] Allergy (Unknown, Verified 04/27/23 15:49) VOMIT diazepam [From VALIUM] Allergy (Unknown, Verified 04/27/23 15:49) VOMIT hydrocodone [From VICODIN] Allergy (Unknown, Verified 04/27/23 15:49) VOMIT oxycodone [From PERCOCET] Allergy (Unknown, Verified 04/27/23 15:49) VOMIT Tobacco use date assessed: 04/27/23 Dental Screening Dental Screen Date: 04/27/23 Did you have a dental visit in the last 12 months?: Yes Did you have a dental problem in the last 6 months where you did not have access to dental care?: No Was dental information given to patient?: Patient has dentist [facility] Medical History (Updated 09/08/22 @ 09:05 by PHILIP Bhardwaj) Anxiety Generalized skin lumps Broken leg Epilepsy Surgical History History of wisdom tooth extraction History of discectomy Family History Mother Alcoholism Breast cancer Substance use disorder Father Alcoholism Substance use disorder Paternal Grandfather Lung cancer Maternal Grandmother Breast cancer Social History Housing: Apartment Alcohol intake: current Alcohol intake frequency: holidays/special occasions only Alcohol type: beer and wine Patient Tobacco Use Status: Former Tobacco user Tobacco use type: Cigarette e-Cigarette/Vaping Use: Former Use Second Hand Smoke Exposure: No Substance Use Type: Marijuana service: No Current occupational status: employed Current occupational exposures/hazards: No Cognitive needs: No Hearing needs: No Vision needs: Yes Questionnaire PHQ-9 Over the last 2 weeks, how often have you been bothered by any of the following problems? 1. Little interest or pleasure in doing things: not at all 2. Feeling down, depressed, or hopeless: more than half the days 3. Trouble falling or staying asleep, or sleeping too much: more than half the days 4. Feeling tired or having little energy: more than half the days 5. Poor appetite or overeating: nearly every day 6. Feeling bad about yourself - or that you are a failure or have let yourself or your family down: more than half the days 7. Trouble concentrating on things, such as reading the newspaper or watching television: more than half the days 8. Moving or speaking so slowly that other people could have noticed. Or the opposite - being so fidgety or restless that you have been moving around a lot more than usual: not at all 9. Thoughts that you would be better off or of hurting yourself in some way: not at all Total score: 13 22942 - PHQ-9 Billing: Yes Source: Developed by Drs. Oscar Funes, Sylvie Hollingsworth, David Rivera and colleagues, with an educational jaelyn from [employer]. Thrive Questionnaire Date Thrive assessed: 04/27/23 I am a: Patient What is your living situation today?: I have a steady place to live Within the past 12 months, did the food you bought not last and you didn't have the money to get more?: Never true Within the past 12 months, did you worry whether your food would run out before you got money to buy more?: Never true Do you have trouble paying for medicines?: No Do you have trouble getting transportation to medical appointments?: No Do you have trouble paying your heating and electricity bill?: No Do you have trouble taking care of your child, family member or friend?: No Do you have trouble with day-to-day activities such as bathing, preparing meals, shopping, managing finances, etc.?: No Are you currently unemployed and looking for a job?: No Are you interested in more education?: No Please select the resources that you would like help with: None Currently or been in a relationship where the following occur: I choose not to answer this question THRIVE Score: 0 AUDIT C Alcohol Use Questionnaire (AUDIT-C) 1. How often do you have a drink containing alcohol?: Monthly or less 2. How many drinks containing alcohol do you have on a typical day when you are drinking?: 3 or 4 3. How often do you have six or more drinks on one occasion?: Never Total Score: 2 YOLA-7 AMB Questionnaire YOLA-7 Date YOLA - 7 assessed: 04/27/23 Feeling nervous, anxious, or on edge: 2 = More than half the days Not being able to stop or control worryin = More than half the days Worrying too much about different things: 2 = More than half the days Trouble relaxin = More than half the days Being so restless that it is hard to sit still: 1 = Several days Becoming easily annoyed or irritable: 2 = More than half the days Feeling afraid as if something awful might happen: 1 = Several days Total YOLA-7 score (0-4 normal; 5-9 mild; 10-14 moderate; 15-21 severe): 12 Source: Developed by Drs. Oscar Funes, Sylvie Hollingsworth, David Rivera and colleagues, with an educational jaelyn from [employer]. YOLA-7 Assessment Billing YOLA-7 Assessment Tool: YOLA-7 Assessment 85447 Physical exam (Primary Care) Vital Signs: Last Vital Signs Pulse 78 04/27/23 15:47 BP 118/86 04/27/23 15:47 Pulse Ox 99 04/27/23 15:47 Oxygen Delivery Method Room Air 04/27/23 15:47 BMI result Body Mass Index 26.0 Tobacco/Smoking Status: Tobacco use Status Tobacco use date assessed 04/27/23 04/27/23 15:52 Patient Tobacco Use Status Former Tobacco user 04/27/23 15:52 Tobacco use type Cigarette 04/27/23 15:52 e-Cigarette/Vaping Use Former Use 04/27/23 15:52 PHQ-9: PHQ-9 Score PHQ-9: Total score 13 04/27/23 16:00 Thrive Assessment: Date of Thrive Assessment Date Thrive assessed 04/27/23 04/27/23 15:52 Currently or been in a relationship where the following occur: I choose not to answer this question Coding Additional Codes YOLA-7 Assessment Billing - YOLA-7 Assessment Tool: YOLA-7 Assessment [id number] ([id number])
[2023-04-27 15:47] VITALS: BP 118/86; PULSE 78; O2SAT 99; BMI 26.0
--- NOTE | 2023-04-27 16:01 | A.OFFPC_ITS ---
Vital Signs 04/27/23 15:47 Height 5 ft 10 in Weight 181 lb 4 oz BMI 26.0 BP 118/86 Blood Pressure Location Lt brachial Position Sitting Pulse 78 Pulse Source Pulse Oximeter Pulse Oximetry (%) 99 Oxygen Delivery Method Room Air Intake Visit Reasons: Pt of AO/Genital Warts Removal/STD screening Intake Note: The patient is here for an office visit. They are a patient of [facility] and are requesting STD screening, as well as a possible referral for the removal of genital warts. 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 Accompanied by: Self / Same As Patient Allergies acetaminophen [From VICODIN] Allergy (Unknown, Verified 04/27/23 16:01) VOMIT diazepam [From VALIUM] Allergy (Unknown, Verified 04/27/23 16:01) VOMIT hydrocodone [From VICODIN] Allergy (Unknown, Verified 04/27/23 16:01) VOMIT oxycodone [From PERCOCET] Allergy (Unknown, Verified 04/27/23 16:01) VOMIT Medication List - Last Reconciled 04/27/23 by Fortino Chacko PA-C lamotrigine (Lamictal) 400 mg PO BID Tobacco use date assessed: 07/08/22 HPI Pt of AO/Genital Warts Removal/STD screening HPI Details Patient is a 37-year-old here today for transfer care visit. He has a past medical history significant for epilepsy to which he takes lamotrigine 400 mg b.i.d.. Today concerned about getting screened for STDs. He does report having genital warts over the last 2 years that have slowly gotten larger. He is interested in removing the warts and getting screen for cancer. He otherwise denies any dysuria, frequency of urine or penile discharge. .. Epilepsy: He reports not having a seizure in over 3 years. Continues on lamotrigine and followed by a neurologist at [facility]. [facility] Medical History Anxiety Generalized skin lumps Broken leg Epilepsy Surgical History History of wisdom tooth extraction History of discectomy Family History Mother Alcoholism Breast cancer Substance use disorder Father Alcoholism Substance use disorder Paternal Grandfather Lung cancer Maternal Grandmother Breast cancer Social History Housing: Apartment Alcohol intake: current Alcohol intake frequency: holidays/special occasions only Alcohol type: beer and wine Patient Tobacco Use Status: Former Tobacco user Tobacco use type: Cigarette e-Cigarette/Vaping Use: Former Use Second Hand Smoke Exposure: No Substance Use Type: Marijuana service: No Current occupational status: employed Current occupational exposures/hazards: No Cognitive needs: No Hearing needs: No Vision needs: Yes Questionnaire PHQ-9 Over the last 2 weeks, how often have you been bothered by any of the following problems? 1. Little interest or pleasure in doing things: not at all 2. Feeling down, depressed, or hopeless: more than half the days 3. Trouble falling or staying asleep, or sleeping too much: more than half the days 4. Feeling tired or having little energy: more than half the days 5. Poor appetite or overeating: more than half the days 6. Feeling bad about yourself - or that you are a failure or have let yourself or your family down: more than half the days 7. Trouble concentrating on things, such as reading the newspaper or watching television: more than half the days 8. Moving or speaking so slowly that other people could have noticed. Or the opposite - being so fidgety or restless that you have been moving around a lot more than usual: not at all 9. Thoughts that you would be better off or of hurting yourself in some way: not at all Total score: 12 32974 - PHQ-9 Billing: Yes Source: Developed by Drs. Oscar Funes, Sylvie Hollingsworth, David Rivera and colleagues, with an educational jaelyn from [employer]. Thrive Questionnaire Date Thrive assessed: 04/27/23 I am a: Patient What is your living situation today?: I have a steady place to live Within the past 12 months, did the food you bought not last and you didn't have the money to get more?: Never true Within the past 12 months, did you worry whether your food would run out before you got money to buy more?: Never true Do you have trouble paying for medicines?: No Do you have trouble getting transportation to medical appointments?: No Do you have trouble paying your heating and electricity bill?: No Do you have trouble taking care of your child, family member or friend?: No Do you have trouble with day-to-day activities such as bathing, preparing meals, shopping, managing finances, etc.?: No Are you currently unemployed and looking for a job?: No Are you interested in more education?: No Please select the resources that you would like help with: None Currently or been in a relationship where the following occur: no concerns reported THRIVE Score: 0 AUDIT C Alcohol Use Questionnaire (AUDIT-C) 1. How often do you have a drink containing alcohol?: 2-4 times a month 2. How many drinks containing alcohol do you have on a typical day when you are drinking?: 1 or 2 3. How often do you have six or more drinks on one occasion?: Never Total Score: 2 YOLA-7 AMB Questionnaire YOLA-7 Date YOLA - 7 assessed: 04/27/23 Feeling nervous, anxious, or on edge: 2 = More than half the days Not being able to stop or control worryin = More than half the days Worrying too much about different things: 2 = More than half the days Trouble relaxin = More than half the days Being so restless that it is hard to sit still: 2 = More than half the days Becoming easily annoyed or irritable: 2 = More than half the days Feeling afraid as if something awful might happen: 0 = Not at all Total YOLA-7 score (0-4 normal; 5-9 mild; 10-14 moderate; 15-21 severe): 12 Source: Developed by Drs. Oscar Funes, Sylvie Hollingsworth, David Rivera and colleagues, with an educational jaelyn from [employer]. YOLA-7 Assessment Billing YOLA-7 Assessment Tool: YOLA-7 Assessment 72287 Review of Systems Const Denies headache(s) Eyes Denies loss of vision ENT Denies vertigo, Denies dizziness, Denies headache(s) and Denies sore throat Card Denies chest pain, Denies leg edema and Denies lightheadedness Resp Denies cough, Denies hemoptysis and Denies wheezing GI Denies abdominal pain, Denies melena, Denies constipation, Denies diarrhea and D enies vomiting Denies dysuria, Denies urinary frequency and Denies urinary urgency Musc Denies arthralgias, Denies joint swelling, Denies numbness and Denies tingling Neuro Denies Abnormal speech present, Denies behavioral changes, Denies vertigo, Denies dizziness, Denies headache(s), Denies loss of vision, Denies memory loss, Denies numbness and Denies tingling Psych Denies anxiety, Denies behavioral changes, Denies depression, Denies memory loss and Denies panic attacks Saturnino/Lymph Denies easy bleeding and Denies easy bruising Aller/Immun Denies wheezing Physical exam (Primary Care) Vital Signs: Last Vital Signs Pulse 78 04/27/23 15:47 BP 118/86 04/27/23 15:47 Pulse Ox 99 04/27/23 15:47 Oxygen Delivery Method Room Air 04/27/23 15:47 BMI result Body Mass Index 26.0 Tobacco/Smoking Status: Tobacco use Status Tobacco use date assessed 07/08/22 04/27/23 16:03 Patient Tobacco Use Status Former Tobacco user 04/27/23 16:03 Tobacco use type Cigarette 04/27/23 16:03 e-Cigarette/Vaping Use Former Use 04/27/23 16:03 PHQ-9: PHQ-9 Score PHQ-9: Total score 12 04/27/23 16:16 Thrive Assessment: Date of Thrive Assessment Date Thrive assessed 04/27/23 04/27/23 16:03 Currently or been in a relationship where the following occur: no concerns reported Const General: healthy appearing, no acute distress, alert and awake Nutritional Appearance: well nourished Orientation/consciousness: oriented to person, oriented to place and oriented to time [facility] Ears: TM's normal bilaterally General nose exam: Normal nasal mucous membranes and turbinates present Eyes Conjunctivae: conjunctivae normal Sclerae: sclerae normal Pupils: Equal, round and reactive pupils present Neck Neck: Yes no lymphadenopathy and Yes no JVD Thyroid: Thyroid normal Carotids: no bruits Resp Effort & Inspection: normal respiratory effort and not tachypneic Auscultation: no crackles, no rales, no rhonchi and no wheezes Cardio Rate: regular rate Rhythm: regular rhythm Heart sounds: no murmurs and normal S1 and S2 GI Palpation (GI): Soft to palpation, nontender, no hepatomegaly and no splenomegaly Auscultation: normal bowel sounds Skin General skin exam: no rashes or lesions noted and dry skin Neuro General: oriented to person, oriented to place and oriented to time Cranial nerves: Yes Equal, round and reactive pupils present Speech: No Abnormal speech present Gait exam (Neuro): Normal gait present Motor exam (neuro): no tremor noted Extrem Right upper extremity: full ROM Left upper extremity: full ROM Right lower extremity: full ROM; no edema Left lower extremity: full ROM; no edema Psych Mental Status: mental status grossly normal Speech and movement: Normal speech and movement present Affect: normal affect Attitude: cooperative Thought process: Normal thought process present Office Procedures Flu Questionnaire Does the patient have a severe egg allergy?: No Does the patient have severe life threatening allergies?: No Does the patient have a fever or illness today?: No Has the patient ever had Guillain-[place] Syndrome?: No Has the patient ever had any past reaction to a flu shot?: No Immunizations flu vacc [id number] 6mos up(PF) 60 mcg(15 mcgx4)/0.5 mL IM syringe Performing Provider: Fortino Chacko PA-C Performing Location: [facility] Administered by: ADRIANNA Cornell on 04/27/23 16:17 Dose Route Admin Location Dispensed Lot Number Expiration Date NDC Underwriting Specialist 0.5 mL IM Left Deltoid 0.5 mL [id number] 09/25/23 61036-743-17 [employer] VIS Given Date VIS Provided VIS Publication Date 04/27/23 Single Vaccine 20 Eligibility Eligibility Date Funding Source Not [facility] Eligible 04/27/23 Private Assessment and Plan Assessment & Plan (1) Epilepsy: Comment: Follows with [facility] Neurology Code(s): G40.909 - Epilepsy, unspecified, not intractable, without status epilepticus Qualifiers: Epilepsy type: unspecified Intractability: not intractable Status epilepticus: without status epilepticus Qualified Code(s): G40.909 - Epilepsy, unspecified, not intractable, without status epilepticus Plan: As per HPI, followed by Neurology at [facility]. He denies having any seizure activities in over 3 years. (2) Genital warts due to HPV (human papillomavirus): Code(s): A63.0 - Anogenital (venereal) warts Plan: Reports 2 year history of genital warts. He is interested in having warts removed. Will refer for possible removal. Orders: Orders Syphilis Screen 04/27/23 A63.0 - Anogenital (venereal) warts, Z11.3 - Encounter for screening for infections with a predominantly sexual mode of transmission HIV Ab/Ag 04/27/23 A63.0 - Anogenital (venereal) warts, Z11.3 - Encounter for screening for infections with a predominantly sexual mode of transmission CT NG by PCR 04/27/23 A63.0 - Anogenital (venereal) warts, Z20.2 - Contact with and (suspected) exposure to infections with a predominantly sexual mode of transmission Influenza [id number] Immunization 04/27/23 Z23 - Encounter for immunization Referrals General Surgery Referral A63.0 - Anogenital (venereal) warts Coding Level of Care Code Est Pt Level 3 (52268) Diagnoses Nonintractable epilepsy without status epilepticus, unspecified epilepsy type G40.909 Epilepsy type: unspecified Intractability: not intractable Status epilepticus: without status epilepticus Genital warts due to HPV (human papillomavirus) A63.0 Additional Codes YOLA-7 Assessment Billing - YOLA-7 Assessment Tool: YOLA-7 Assessment 25867 ([id number])
== END 2023-04-27 16:20 | disposition home or self-care (01) ==
PROVIDERS: PCP Nurse Practitioner Family; Visit Provider Physician Assistant
DX: Z23 Encounter for immunization (principal)
CPT/HCPCS: 90471; 90686; 99213

== ENCOUNTER 2023-04-27 16:27 | Outpatient (REF) | payer OTHER, SELFPAY ==
[2023-04-28 04:08] LABS: Syphilis Screen Nonreactive (Nonreactive)
[2023-04-28 04:29] LABS: HIV AB/AG Nonreactive (Nonreactive); HIV Num 1 0.07 S/CO (0.00-0.99)
[2023-04-28 11:54] LABS: CT PCR NOT DETECTED (Not Detect.); NG PCR NOT DETECTED (Not Detect.)
== END 2023-04-27 16:28 | disposition home or self-care (01) ==
LOC: HO.LAB 16:27
PROVIDERS: PCP Physician Assistant; Visit Provider Physician Assistant
DX: A63.0 Anogenital (venereal) warts (principal); Z11.3 Encounter for screening for infections with a predominantly sexual mode of transmission; Z20.2 Contact with and (suspected) exposure to infections with a predominantly sexual mode of transmission
CPT/HCPCS: 0353U; 86780; 87389

== ENCOUNTER 2023-05-11 14:55 | Outpatient (AMB) | payer OTHER, SELFPAY ==
--- NOTE | 2023-05-11 15:05 | A.OFFVIS_ITS ---
Intake Vital Signs 05/11/23 15:09 Height 5 ft 10 in Weight 181 lb 4.013 oz BMI 26.0 BP 129/81 Blood Pressure Location Rt brachial Position Sitting Pulse 56 Intake Visit Reasons: Anogential warts Intake Note: This patient presents for an assessment for anogential warts. Patient c/o; reports no complaints at this time. 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 He says he has had this for about 2-3 years. He thinks that this increased in size. He denies any drainage or any other skin changes. [facility] Medical History (Updated 05/11/23 @ 15:22 by Dickson Smith MD) Lesion of penis Anxiety Generalized skin lumps Broken leg Epilepsy Surgical History History of wisdom tooth extraction History of discectomy Family History Mother Alcoholism Breast cancer Substance use disorder Father Alcoholism Substance use disorder Paternal Grandfather Lung cancer Maternal Grandmother Breast cancer Social History Housing: Apartment Alcohol intake: current Alcohol intake frequency: holidays/special occasions only Alcohol type: beer and wine Patient Tobacco Use Status: Former Tobacco user Tobacco use type: Cigarette e-Cigarette/Vaping Use: Former Use Second Hand Smoke Exposure: No Substance Use Type: Marijuana service: No Current occupational status: employed Current occupational exposures/hazards: No Cognitive needs: No Hearing needs: No Vision needs: Yes Review of Systems Const Denies chills and Denies fever(s) Card Denies chest pain, Denies dyspnea and Denies dyspnea on exertion Resp Denies cough, Denies dyspnea and Denies dyspnea on exertion GI Denies hematochezia and Denies change in bowel habits Denies hematuria and Denies difficulty urinating Musc Denies back pain and Denies limited range of motion Neuro Denies focal weakness and Denies convulsions Psych Denies depression and Denies mood swings Physical Exam Vital Signs: Last Vital Signs Pulse 56 05/11/23 15:09 BP 129/81 05/11/23 15:09 BMI result Body Mass Index 26.0 Const General: comfortable and no acute distress Orientation/consciousness: patient oriented x3 Neck Neck: Yes no lymphadenopathy Resp Auscultation: clear to auscultation bilaterally Cardio Rhythm: regular rhythm GI Palpation (GI): Soft to palpation, nontender and no guarding Other: On the right side of the penile shaft is note of 2 elevated skin lesions, measuring about 3 mm and 4 mm in diameter each, may be condylomatous based on appearance Neuro General: patient oriented x3 Assessment & Plan Assessment & Plan (1) Lesion of penis: Code(s): N48.9 - Disorder of penis, unspecified Plan: He has penile skin lesions as described above. This may be condylomatous. This may be condylomatous. I explained the technique of excision under local anesthesia. I reviewed the risks including but not limited to bleeding, infections and poor healing, as well as the benefits and alternatives. He understands and wants to proceed. This will be done in the office on his next visit. Coding Level of Care Code New Pt Level 3 (14741) Diagnoses Lesion of penis N48.9
[2023-05-11 15:09] VITALS: BP 129/81; PULSE 56; BMI 26.0
== END 2023-05-11 15:26 | disposition home or self-care (01) ==
PROVIDERS: PCP Physician Assistant; Visit Provider Surgery
DX: N48.9 Disorder of penis, unspecified (principal)
CPT/HCPCS: 99203

== ENCOUNTER → 2023-05-11 14:55 | Outpatient (BNVA) | payer OTHER, SELFPAY | PROVIDERS: PCP Physician Assistant; Visit Provider Surgery | DX: N48.9 Disorder of penis, unspecified (principal) | CPT/HCPCS: 99202 ==

== ENCOUNTER 2023-05-24 15:55 | Outpatient (REF) | payer OTHER, SELFPAY ==
[2023-05-26 06:09] LABS: Herpes Simplex Type 1 IgG 8.13 index; Herpes Simplex Type 2 IgG <0.90 index
== END 2023-05-24 15:56 | disposition home or self-care (01) ==
LOC: HO.LAB 15:55
PROVIDERS: PCP Physician Assistant; Visit Provider Physician Assistant
DX: Z11.3 Encounter for screening for infections with a predominantly sexual mode of transmission (principal)
CPT/HCPCS: 36415; 86695; 86696

== ENCOUNTER 2023-05-25 14:55 | Outpatient (REF) | payer OTHER, SELFPAY | END 2023-05-25 14:56 | disposition home or self-care (01) | LOC: HO.LNP 14:55 | PROVIDERS: PCP Physician Assistant; Visit Provider Surgery | DX: N48.9 Disorder of penis, unspecified (principal) | CPT/HCPCS: 54060; 88304; 88305 ==

== ENCOUNTER 2023-05-25 14:55 | Outpatient (AMB) | payer OTHER, SELFPAY ==
--- NOTE | 2023-05-25 14:56 | A.OFFVIS_ITS ---
Intake Intake Visit Reasons: Exc penile skin lesion Intake Note: This patient present for in office procedure for excision penile skin lesion. Pt c/o; reports no changes or complaints. 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 [facility] Medical History (Updated 05/24/23 @ 12:56 by Fortino Chacko PA-C) Lesion of penis Anxiety Generalized skin lumps Broken leg Epilepsy Surgical History History of wisdom tooth extraction History of discectomy Family History Mother Alcoholism Breast cancer Substance use disorder Father Alcoholism Substance use disorder Paternal Grandfather Lung cancer Maternal Grandmother Breast cancer Social History Housing: Apartment Alcohol intake: current Alcohol intake frequency: holidays/special occasions only Alcohol type: beer and wine Patient Tobacco Use Status: Former Tobacco user Tobacco use type: Cigarette e-Cigarette/Vaping Use: Former Use Second Hand Smoke Exposure: No Substance Use Type: Marijuana service: No Current occupational status: employed Current occupational exposures/hazards: No Cognitive needs: No Hearing needs: No Vision needs: Yes Office Procedures Excision Details: He had 2 condylomatous appearing lesions on the penile shaft proximally at the dorsum. These were 4 mm and 3 mm in size. He also wanted to 1 mm lesions the shaft to be cauterized. These areas were prepped and draped. Lidocaine 1% was used for local anesthesia. I excised this 2 lesions separately with a blade 15. I cauterized both sites with silver nitrate sticks to achieve hemostasis and avoid sutures. There were also smaller 1-2 mm lesions in the more proximal shaft at the base. I cauterized this using silver nitrate sticks as he had requested. He tolerated procedure well. There was very minimal blood loss. 82910-redii/arms/legs 0.6-1cm Procedure code (CPT) selection complete Assessment & Plan Assessment & Plan (1) Lesion of penis: Code(s): N48.9 - Disorder of penis, unspecified Plan: Excision was done in the office. He tolerated procedure well. He was given wound care instructions. He can take Tylenol and ibuprofen for pain. I will see him in the office for a postop check in about 2 weeks. Coding Level of Care Code Procedure Only Diagnoses Lesion of penis N48.9 CPT Codes Trunk/Arms/Legs - CPT: 11215-jmbgn/arms/legs 0.6-1cm ([id number])
== END 2023-05-25 15:23 | disposition home or self-care (01) ==
PROVIDERS: PCP Physician Assistant; Visit Provider Surgery
DX: A63.0 Anogenital (venereal) warts (principal)
CPT/HCPCS: 54060

== ENCOUNTER 2023-06-02 15:51 | Outpatient (AMB) | payer OTHER, SELFPAY ==
--- NOTE | 2023-06-02 15:55 | A.OFFVIS_ITS ---
Intake Vital Signs 06/02/23 15:59 Height 5 ft 10 in Weight 181 lb 4.013 oz BMI 26.0 Intake Visit Reasons: Exc penile skin lesion Intake Note: This patient presents for a follow-up post-op assessment status post excision lesion of penis. Pt c/o; reports no complaints. 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 He tolerated procedure well. He currently denies significant complaints and says he feels well overall. [facility] Medical History (Updated 06/02/23 @ 16:06 by Dickson Smith MD) Condyloma acuminata Lesion of penis Anxiety Generalized skin lumps Broken leg Epilepsy Surgical History History of surgical removal of skin lesion (~05/25/23) History of wisdom tooth extraction History of discectomy Family History Mother Alcoholism Breast cancer Substance use disorder Father Alcoholism Substance use disorder Paternal Grandfather Lung cancer Maternal Grandmother Breast cancer Social History Housing: Apartment Alcohol intake: current Alcohol intake frequency: holidays/special occasions only Alcohol type: beer and wine Patient Tobacco Use Status: Former Tobacco user Tobacco use type: Cigarette e-Cigarette/Vaping Use: Former Use Second Hand Smoke Exposure: No Substance Use Type: Marijuana service: No Current occupational status: employed Current occupational exposures/hazards: No Cognitive needs: No Hearing needs: No Vision needs: Yes Review of Systems Const Denies chills and Denies fever(s) Card Denies chest pain, Denies dyspnea and Denies dyspnea on exertion Resp Denies cough, Denies dyspnea and Denies dyspnea on exertion GI Denies hematochezia and Denies change in bowel habits Denies hematuria and Denies difficulty urinating Musc Denies back pain and Denies limited range of motion Neuro Denies focal weakness and Denies convulsions Psych Denies depression and Denies mood swings Physical Exam Vital Signs: BMI result Body Mass Index 26.0 Const General: comfortable and no acute distress Other: Excision site is well healing, not infected, not fully reepithelialized but granulating well Assessment & Plan Assessment & Plan (1) Condyloma acuminata: Code(s): A63.0 - Anogenital (venereal) warts Plan: Status post excision of a penile lesion. The path report shows condyloma acuminata. The excision site is healing well. I advised him on good wound care I told him to monitor the rest of his penis for other similar lesions and he is welcome to come back to the office to be re-evaluated down the line. Coding Level of Care Code Global (90422) Diagnoses Condyloma acuminata A63.0
[2023-06-02 15:59] VITALS: BMI 26.0
== END 2023-06-02 16:17 | disposition home or self-care (01) ==
PROVIDERS: PCP Physician Assistant; Visit Provider Surgery
DX: A63.0 Anogenital (venereal) warts (principal)
CPT/HCPCS: 99024

== ENCOUNTER → 2023-06-02 15:51 | Outpatient (BNVA) | payer OTHER, SELFPAY | PROVIDERS: PCP Physician Assistant; Visit Provider Surgery | DX: A63.0 Anogenital (venereal) warts (principal) | CPT/HCPCS: 99212 ==

== ENCOUNTER 2023-09-28 15:53 | Outpatient (AMB) | payer OTHER, SELFPAY ==
[2023-09-28 16:02] VITALS: BP 102/64; PULSE 74; O2SAT 99; BMI 24.7
--- NOTE | 2023-09-28 16:02 | MHC.PC.OV ---
Vital Signs 09/28/23 16:02 Height 5 ft 10 in Weight 172 lb BMI 24.7 BP 102/64 Blood Pressure Location Lt brachial Position Sitting Pulse 74 Pulse Source Pulse Oximeter Pulse Oximetry (%) 99 Oxygen Delivery Method Room Air Intake Visit Reasons: AE Intake Note: Patient is here today for a physical. 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 Accompanied by: Self / Same As Patient Allergies acetaminophen [From VICODIN] Allergy (Unknown, Verified 10/01/23 22:05) VOMIT diazepam [From VALIUM] Allergy (Unknown, Verified 10/01/23 22:05) VOMIT hydrocodone [From VICODIN] Allergy (Unknown, Verified 10/01/23 22:05) VOMIT oxycodone [From PERCOCET] Allergy (Unknown, Verified 10/01/23 22:05) VOMIT Medication List - Last Reconciled 09/28/23 by Fortino Chacko PA-C lamotrigine (Lamictal) 400 mg PO BID Tobacco use date assessed: 09/28/23 Dental Screening Dental Screen Date: 09/28/23 Did you have a dental visit in the last 12 months?: Yes Did you have a dental problem in the last 6 months where you did not have access to dental care?: No Was dental information given to patient?: Patient has dentist HPI AE HPI Details Patient is a 38-year-old male here today for routine annual physical He has a past medical history significant for epilepsy to which he takes lamotrigine 400 mg b.i.d.. .. Epilepsy: He reports not having a seizure in over 3 years. Continues on lamotrigine and followed by a neurologist at [facility]. He reports he has reduced his dose of lamotrigine due to side effects. Has not followed up with [facility]rology in quite some time. He would like a 2nd opinion with a new neurologist. .. Genital wart: Has followed up with general surgeon-->Had hos had wart removal and is happy. Vaccine: up-to-date with COVID, flu vaccines. He believes he has gotten a tetanus vaccine in the last 10 years. [facility] Medical History Condyloma acuminata Lesion of penis Anxiety Generalized skin lumps Broken leg Epilepsy Surgical History History of surgical removal of skin lesion (~05/25/23) History of wisdom tooth extraction History of discectomy Family History (Updated 09/28/23 @ 16:29 by Fortino Chacko PA-C) Mother Alcoholism Breast cancer Substance use disorder Father Alcoholism Substance use disorder Parkinson disease Paternal Grandfather Lung cancer Maternal Grandmother Breast cancer Social History (Updated 09/28/23 @ 16:29 by Fortino Chacko PA-C) Housing: Apartment Alcohol intake: current Alcohol intake frequency: holidays/special occasions only Alcohol type: beer and wine Patient Tobacco Use Status: Former Tobacco user Tobacco use type: Cigarette e-Cigarette/Vaping Use: Former Use Second Hand Smoke Exposure: No Substance Use Type: Marijuana Advance Directives: No Advance Directives Information Provided: No Do you have a plan to hurt others: No Plan service: No Current occupational status: employed Current occupation: [employer] Current occupational exposures/hazards: No Cognitive needs: No Hearing needs: No Vision needs: Yes Questionnaire Thrive Questionnaire Date Thrive assessed: 04/27/23 YOLA-7 AMB Questionnaire YOLA-7 Date YOLA - 7 assessed: 04/27/23 Source: Developed by Drs. Oscar Funes, Sylvie Hollingsworth, David Rivera and colleagues, with an educational jaelyn from [employer]. Review of Systems Const Denies body aches, Denies chills, Denies excessive sweating, Denies fatigue, Denies fever(s) and Denies headache(s) Eyes Denies blurry vision ENT Denies dysphagia, Denies vertigo, Denies dizziness, Denies headache(s), Denies hearing loss and Denies tinnitus Card Denies chest pain, Denies chest pain with activity, Denies syncope, Denies irregular heart rhythm and Denies dyspnea Resp Denies chest congestion, Denies cough, Denies hemoptysis, Denies dyspnea and Denies wheezing GI Denies abdominal pain, Denies melena, Denies hematochezia, Denies coffee ground emesis, Denies dysphagia, Denies diarrhea, Denies nausea and Denies vomiting Denies difficulty urinating, Denies dysuria, Denies urinary frequency, Denies urinary hesitancy and Denies urinary urgency Musc Denies arthralgias, Denies limited range of motion, Denies muscle cramps and Denies muscle weakness Skin/Breast Denies rash and Denies skin ulcer Neuro Denies Abnormal speech present, Denies confusion, Denies vertigo, Denies dizziness, Denies syncope, Denies headache(s), Denies memory loss and Denies seizure-like activity Psych Denies anxiety, Denies confusion, Denies depression, Denies memory loss, Denies panic attacks and Denies paranoia Endo Denies excessive sweating, Denies fatigue, Denies flushing, Denies polydipsia and Denies polyuria Aller/Immun Denies wheezing Physical exam (Primary Care) Vital Signs: Last Vital Signs Pulse 74 09/28/23 16:02 BP 102/64 09/28/23 16:02 Pulse Ox 99 09/28/23 16:02 Oxygen Delivery Method Room Air 09/28/23 16:02 BMI result Body Mass Index 24.7 Tobacco/Smoking Status: Tobacco use Status Tobacco use date assessed 09/28/23 09/28/23 16:07 Patient Tobacco Use Status Former Tobacco user 09/28/23 16:29 Tobacco use type Cigarette 09/28/23 16:29 e-Cigarette/Vaping Use Former Use 09/28/23 16:29 Thrive Assessment: Date of Thrive Assessment Date Thrive assessed 04/27/23 09/28/23 16:03 Const General: cooperative, comfortable, no acute distress, alert and awake; No confusion Orientation/consciousness: oriented to person, oriented to place, patient oriented x3 and No confusion HENMT Head: Yes normocephalic Ears: external ears normal and TM's normal bilaterally Face and sinus: No sinus tenderness Mouth: Normal oral and palatal mucosa present and tongue normal Teeth and gingiva: dentition normal and gingiva normal Throat: Yes posterior oropharynx normal, Yes tonsils normal and Yes uvula midline Eyes Conjunctivae: conjunctivae normal Sclerae: sclerae normal Pupils: Equal, round and reactive pupils present EOM: EOMs intact bilaterally Direct Ophthalmoscopy: No no photophobia Neck Neck: Yes no lymphadenopathy, No tender and Yes no JVD Thyroid: Thyroid normal Carotids: no bruits Chest Chest palpation & inspection: no tenderness Resp Effort & Inspection: normal respiratory effort, no audible wheezes, not labored and no stridor Auscultation: no crackles, no rales, no rhonchi and no wheezes Cardio Jugular venous distension: no JVD Rate: regular rate, not bradycardic and not tachycardic Rhythm: regular rhythm Bruits: no carotid bruits Peripheral pulses: Peripheral pulses 2+ throughout GI Inspection: Yes normal to inspection, No abdominal wall ecchymosis and No visible herniation Palpation (GI): Soft to palpation, nontender, no guarding, not rigid and No hepatosplenomegaly present Auscultation: normoactive bowel sounds General: Yes no CVA tenderness Back/Spine/Pelvis Back: no CVA tenderness and No back tenderness Cervical Spine: cervical ROM normal Thoracic/Lumbar Spine: thoracic and lumbar spine normal to inspection, straight leg raise negative bilaterally, No thoraco-lumbar ROM limited and No lumbar spinal tenderness Skin Lesions: no lesions Rashes: no rashes Wounds: no wounds Neuro General: oriented to person, oriented to place, patient oriented x3, CN's II-XI intact bilaterally and No confusion Cranial nerves: Yes Equal, round and reactive pupils present and Yes Normal accommodation reflex present Cognition (Neuro): normal cognition Speech: No Abnormal speech present Gait exam (Neuro): Normal gait present Motor exam (neuro): 5/5 motor strength present throughout Extrem Right upper extremity: full ROM; no cyanosis Left upper extremity: full ROM; no cyanosis Right lower extremity: no edema Left lower extremity: no edema Psych Appearance: grossly normal Mental Status: mental status grossly normal Affect: normal affect Attitude: cooperative Thought process: Normal thought process present Assessment and Plan Assessment & Plan (1) Annual physical exam: Code(s): Z00.00 - Encounter for general adult medical examination without abnormal findings (2) Epilepsy: Comment: Follows with [facility] Code(s): G40.909 - Epilepsy, unspecified, not intractable, without status epilepticus Qualifiers: Epilepsy type: unspecified Intractability: not intractable Status epilepticus: without status epilepticus Qualified Code(s): G40.909 - Epilepsy, unspecified, not intractable, without status epilepticus Plan: As per HPI, followed by Neurology at [facility]. He denies having any seizure activities in over 3 years. He reports he continues on lamotrigine 300 mg b.i.d which has been effective . (3) Genital warts due to HPV (human papillomavirus): Code(s): A63.0 - Anogenital (venereal) warts Plan: Has followed up with General surgery. Warty lesions have been removed and he is happy with results. (4) Screening for diabetes mellitus (DM): Code(s): Z13.1 - Encounter for screening for diabetes mellitus (5) HSV-1 (herpes simplex virus 1) infection: Code(s): B00.9 - Herpesviral infection, unspecified Plan: Patient does have a history of herpes simplex 1 infection. He would like access to Valtrex to use for outbreaks. Orders: Orders Complete Blood Count no Diff 09/28/23 G40.909 - Epilepsy, unspecified, not intractable, without status epilepticus Comprehensive [place]. Panel Fast 09/28/23 Z13.1 - Encounter for screening for diabetes mellitus Lamotrigine Lamictal 09/28/23 G40.909 - Epilepsy, unspecified, not intractable, without status epilepticus Referrals Neurology Referral G40.909 - Epilepsy, unspecified, not intractable, without status epilepticus Medications: New lamotrigine (Lamictal) 300 mg (3 x 100 mg) PO BID 180 tabs 3RF 30 days G40.909 - Epilepsy, unspecified, not intractable, without status epilepticus valacyclovir (Valtrex) 1,000 mg PO BID 14 tabs 0RF 7 days B00.9 - Herpesviral infection, unspecified Coding Level of Care Code Est Pt Prev Care [id number](56459) Diagnoses Annual physical exam Z00.00 Nonintractable epilepsy without status epilepticus, unspecified epilepsy type G40.909 Epilepsy type: unspecified Intractability: not intractable Status epilepticus: without status epilepticus Genital warts due to HPV (human papillomavirus) A63.0 Screening for diabetes mellitus (DM) Z13.1 HSV-1 (herpes simplex virus 1) infection B00.9
== END 2023-09-28 16:48 | disposition home or self-care (01) ==
PROVIDERS: PCP Physician Assistant; Visit Provider Physician Assistant
DX: Z00.00 Encounter for general adult medical examination without abnormal findings (principal); G40.909 Epilepsy, unspecified, not intractable, without status epilepticus; A63.0 Anogenital (venereal) warts; Z13.1 Encounter for screening for diabetes mellitus; B00.9 Herpesviral infection, unspecified
CPT/HCPCS: 99395

== ENCOUNTER 2023-10-01 21:31 | Emergency (ER) | payer OTHER, SELFPAY ==
[2023-10-01 21:59] VITALS: BP 128/87; PULSE 72; RESP 18; TEMP 37; O2SAT 99; BMI 26.8
[2023-10-01 22:22] LABS: MANUAL DIFF FLAG NO
[2023-10-01 22:23] LABS: Basophils Percent Auto 0.1 % (0-2); Eosinophils Percent Auto 0.1 % (0-4); Hematocrit 45.3 % (42.0-52.0); Hemoglobin 16.5 g/dl (14.0-18.0); Imm Gran Abs Auto 0.03 X10*3/uL (0.00-0.03); Imm Gran Pct Auto 0.3 % (0.0-0.4); Lymphocytes Absolute Auto 0.8 X10*3/uL (1.2-4.9); Lymphocytes Percent Auto 6.9 % (20-40); Mean Corpuscular HGB Conc 36.4 g/dl (31.0-36.0); Mean Corpuscular Hemoglobin 32.9 pg (27.0-33.0); Mean Corpuscular Volume 90.4 fL (80.0-98.0); Mean Platelet Volume 10.2 fL (9.4-12.4); Monocytes Absolute Auto 0.3 X10*3/uL (0.1-1.2); Monocytes Percent Auto 3.1 % (2-11); Neutrophils Absolute Auto 9.8 x10*3/uL (2.0-8.3); Neutrophils Percent Auto 89.5 % (45-73); Platelet Count 221 X10*3/uL (160-400); Red Blood Count 5.01 X10*6/uL (4.60-5.80); Red Cell Distribution Width 12.9 % (11.0-16.0); White Blood Count 10.9 X10*3/uL (4.8-10.8)
[2023-10-01 22:24] LABS: Appearance Urine Clear; Color Urine Dark Yellow; Glucose Urine UA Negative (Negative); Leukocyte Esterase Urine Trace (Negative); Nitrite Urine Negative (Negative); PH >= 9.0 (5.0-9.0); Specific Gravity - Urine >= 1.030 (1.005-1.025); UMIC TRIGGER UACC YES; Urine Blood Negative (Negative); Urine Ketones >=160 mg/dL (Negative); Urine Protein 100 (2+) mg/dL (Neg-Trace)
[2023-10-01 22:39] LABS: Alanine Aminotransferase 30 U/L (0-40); Albumin Level 5.1 g/dL (3.5-5.0); Alkaline Phosphatase 89 U/L (39-117); Anion Gap 19 (12-20); Aspartate Amino Transferase 24 U/L (5-37); Bilirubin Direct 0.2 mg/dL (0.0-0.5); Bilirubin Total 0.8 mg/dL (0.0-1.0); Blood Urea Nitrogen 17 mg/dL (9-16); Calcium 10.5 mg/dL (8.4-10.2); Carbon Dioxide 23 mmol/L (22-29); Chloride 103 mmol/L (96-108); Estimated Glomerular Filt Rate > 60; Glucose Random 129 mg/dL (60-115); Lipase 22 U/L (8-78); Potassium 3.5 mmol/L (3.3-5.1); Sodium 141 mmol/L (135-145); Total Protein 7.9 g/dL (6.5-8.0)
[2023-10-01 22:47] LABS: Bacteria Urine None Seen (None Seen); Hyaline Casts Urine 0-2 /LPF (0-2); RBC Urine 0-2 /HPF (0-2); Squamous Epithelial Cell Urine 0-2 /HPF (0-2); WBC Urine 0-5 /HPF (0-5)
--- NOTE | 2023-10-01 23:50 | ED.NAVMDI ---
HPI - Nausea/Vomiting/Diarrhea General Chief complaint: Abdominal Pain Stated complaint: vomiting unable to take seizure meds Time Seen by Provider: 10/01/23 23:31 Source: patient Mode of arrival: ambulatory Limitations: no limitations History of Present Illness ED Provider: Dr. Gagandeep Fonseca HPI Narrative: 38-year-old male with a history of depression, seizure disorder, cyclic vomiting syndrome, cannabis use disorder who presents emergency department for evaluation of nausea, vomiting, diarrhea, abdominal pain, carpal pedal spasm. Patient states that he has a history of cyclic vomiting syndrome. He states that today he has had nausea, vomiting and diarrhea. He states he has not been able to eat or hold any fluid down throughout the whole day. He states that he has had shortness of breath, abdominal pain and he developed spasm of his hands and feet. He also had perioral numbness as well as numbness in his hands and feet. Patient states that these symptoms are similar to his cyclic vomiting syndrome flare-ups in the past. The patient does have a seizure disorder and takes lamotrigine when she states he has not been able to take due to his nausea and vomiting. Patient states that he smokes marijuana multiple times a day and he is done this for a significant period of time. He states he has not been able to cut back on his marijuana use. Related Data Previous Rx's ?Medication ?Instructions ?Recorded lamotrigine 100 mg tablet 300 mg (3 x 100 mg) PO BID 30 days 09/28/23 (Lamictal) #180 tabs valacyclovir 1 gram tablet 1,000 mg PO BID 7 days #14 tabs 09/28/23 (Valtrex) lorazepam 1 mg tablet (Ativan) 1 mg PO TID PRN anxiety #10 tabs 10/02/23 ondansetron 4 mg disintegrating 4 mg PO Q6-8H PRN nausea and 10/02/23 tablet vomiting #14 tabs Allergies Allergy/AdvReac Type Severity Reaction Status Date / Time acetaminophen [From VICODIN] Allergy Unknown VOMIT Verified 10/01/23 22:05 diazepam [From VALIUM] Allergy Unknown VOMIT Verified 10/01/23 22:05 hydrocodone [From VICODIN] Allergy Unknown VOMIT Verified 10/01/23 22:05 oxycodone [From PERCOCET] Allergy Unknown VOMIT Verified 10/01/23 22:05 Review of Systems Review of Systems: Yes all other systems are reviewed and are negative [facility] Past Medical History Medical History Condyloma acuminata Lesion of penis Anxiety Generalized skin lumps Broken leg Epilepsy Surgical History History of surgical removal of skin lesion (~05/25/23) History of wisdom tooth extraction History of discectomy Family History Family History (Updated 09/28/23 @ 16:29 by Fortino Chacko PA-C) Mother Alcoholism Breast cancer Substance use disorder Father Alcoholism Substance use disorder Parkinson disease Paternal Grandfather Lung cancer Maternal Grandmother Breast cancer Social History Social History (Updated 09/28/23 @ 16:29 by Fortino Chacko PA-C) Housing: Apartment Alcohol intake: current Alcohol intake frequency: holidays/special occasions only Alcohol type: beer and wine Patient Tobacco Use Status: Former Tobacco user Tobacco use type: Cigarette e-Cigarette/Vaping Use: Former Use Second Hand Smoke Exposure: No Substance Use Type: Marijuana Advance Directives: No Advance Directives Information Provided: No Do you have a plan to hurt others: No Plan service: No Current occupational status: employed 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 Current occupational exposures/hazards: No Cognitive needs: No Hearing needs: No Vision needs: Yes Physical Exam Vital Signs: Vital Signs: Last Vital Signs Temp 98.6 F 10/01/23 21:59 Pulse 72 10/01/23 21:59 Resp 18 10/01/23 21:59 BP 128/87 10/01/23 21:59 Pulse Ox 99 10/01/23 21:59 O2 Del Method Room Air 10/01/23 21:59 BMI result Body Mass Index 26.8 Vital signs were normal Exam: General: Awake, alert in no distress Head: Normocephalic, atraumatic EENT: PERRL, Lids normal, sclera normal, conjunctiva normal, nose normal , ears normal, throat without erythema or exudates Neck: Supple, no adenopathy Lung: breath sounds symmetric, no wheezing, rales or rhonchi Chest: symmetric movement, nontender Heart: regular rate and rhythm, normal S1, S2 no murmurs or rubs Abdomen: soft, non-tender, nondistended, normal bowel sounds Back: no vertebral tenderness, no CVAT Extremities: no deformities, moves all extremities symmetrically Neuro: Awake, alert, oriented, normal speech, cranial nerves intact, moves all extremities symmetrically Psych: Pleasant, cooperative Medications Administered Discontinued Medications Generic Name Dose Route Start Last Admin Trade Name Praveen PRN Reason Stop Dose Admin Droperidol 1.25 mg 10/01/23 23:51 10/02/23 00:25 Droperidol 5 Mg/2 Ml Vial IVPUSH 10/01/23 23:52 1.25 mg ONCE ONE Administration Sodium Chloride 1,000 mls @ 999 mls/hr 10/01/23 23:51 10/02/23 00:25 Ns IV 10/02/23 00:51 999 mls/hr .Q1H1M STA Administration Sodium Chloride 1,000 mls @ 999 mls/hr 10/01/23 23:52 10/02/23 00:25 Ns IV 10/02/23 00:52 999 mls/hr .Q1H1M STA Administration Lorazepam 1 mg 10/01/23 23:51 10/02/23 00:26 Lorazepam 2 Mg/Ml Vial IVPUSH 10/01/23 23:52 1 mg STAT STA Administration Medical Decision Making Medical Decision Making [facility] Narrative: 38-year-old male with a history of depression, seizure disorder, cyclic vomiting syndrome, cannabis use disorder who presents emergency department for evaluation of nausea, vomiting, diarrhea, abdominal pain, carpal pedal spasm. Patient states that he has a history of cyclic vomiting syndrome he states he has had similar symptoms in the past when he has had flare-ups. Vital signs were normal. Physical examination was unremarkable. Differential diagnosis: ?Includes but is not limited to cyclic vomiting syndrome, cannabis hyperemesis syndrome, hyperventilation syndrome with carpopedal spasm, electrolyte abnormalities, anemia, Following evaluation was ordered: CBC, BMP, lipase, liver panel, urinalysis Patient was initially treated with the following: Droperidol 1.25 mg IV, Ativan 1 mg IV, normal saline IV x2, IV insert, cardiac monitoring, pulse ox monitoring Course: 23:58 My interpretation patient's laboratory evaluation as follows: CBC was normal. Glucose elevated 129. LFTs were normal. Lipase was normal. Urinalysis was negative except for protein. Microscopic was negative for RBCs, WBCs and bacteria 01:51 Patient is feeling significantly better after the above treatment. Patient will be discharged home with a prescription for Zofran ODT 4 mg every 6 hours as needed for nausea and vomiting and Ativan 1 mg every 6 hours as needed for anxiety/hyperventilation syndrome. Patient was advised to stop smoking marijuana and I told him that it may take up to 3-6 months before his cyclic vomiting syndrome improves once he stops using cannabis. Patient was given printed and verbal instructions discharged home. Admission/Observation Consideration of admission/observation: Escalation of care including admission/observation considered Lab Data MDM Lab Attestation statement: I reviewed the patient's lab results. 10/01/23 22:16 10/01/23 22:16 Labs: Lab Results 10/01/23 Range/Units 22:16 WBC 10.9 H (4.8-10.8) X10*3/uL RBC 5.01 (4.60-5.80) X10*6/uL Hgb 16.5 (14.0-18.0) g/dl Hct 45.3 (42.0-52.0) % MCV 90.4 (80.0-98.0) fL MCH 32.9 (27.0-33.0) pg MCHC 36.4 H (31.0-36.0) g/dl RDW 12.9 (11.0-16.0) % Plt Count 221 (160-400) X10*3/uL MPV 10.2 (9.4-12.4) fL Immature Gran % (Auto) 0.3 (0.0-0.4) % Neut % (Auto) 89.5 H (45-73) % Lymph % (Auto) 6.9 L (20-40) % Harper % (Auto) 3.1 (2-11) % Eos % (Auto) 0.1 (0-4) % Baso % (Auto) 0.1 (0-2) % Lymph # (Auto) 0.8 L (1.2-4.9) X10*3/uL Harper # (Auto) 0.3 (0.1-1.2) X10*3/uL Eos # (Auto) 0.0 (0.0-0.4) X10*3/uL Baso # (Auto) 0.0 (0.0-0.2) X10*3/uL Abs Immat Gran (auto) 0.03 (0.00-0.03) X10*3/uL Absolute Neuts (auto) 9.8 H (2.0-8.3) x10*3/uL Absolute Nucleated RBC 0.000 (0.0-0.012) X10*3/uL Nucleated RBC % (auto) 0.0 (0.0-0.2) /100WBC Sodium 141 (135-145) mmol/L Potassium 3.5 (3.3-5.1) mmol/L Chloride 103 (96-108) mmol/L Carbon Dioxide 23 (22-29) mmol/L Anion Gap 19 (12-20) BUN 17 H (9-16) mg/dL Creatinine 0.85 (0.5-1.4) mg/dL Estim Creat Clear Calc 124.0 Estimated GFR > 60 Random Glucose 129 H (60-115) mg/dL Calcium 10.5 H D (8.4-10.2) mg/dL Total Bilirubin 0.8 (0.0-1.0) mg/dL Direct Bilirubin 0.2 (0.0-0.5) mg/dL AST 24 (5-37) U/L ALT 30 (0-40) U/L Alkaline Phosphatase 89 (39-117) U/L Total Protein 7.9 (6.5-8.0) g/dL Albumin 5.1 H (3.5-5.0) g/dL Lipase 22 (8-78) U/L Urine Color Dark Yellow Urine Appearance Clear Urine pH >= 9.0 (5.0-9.0) Ur Specific Avenue >= 1.030 H (1.005-1.025) Urine Protein 100 (2+) H (Neg-Trace) mg/dL Urine Glucose (UA) Negative (Negative) mg/dL Urine Ketones >=160 (Negative) mg/dL Urine Blood Negative (Negative) Urine Nitrite Negative (Negative) Ur Leukocyte Esterase Trace H (Negative) Urine RBC 0-2 (0-2) /HPF Urine WBC 0-5 (0-5) /HPF Ur Squamous Epith Cells 0-2 (0-2) /HPF Urine Bacteria None Seen (None Seen) Hyaline Casts 0-2 (0-2) /LPF Independent Historian Clinical information obtained from an independent historian. History obtained from or confirmed by: Other (Girlfriend) Prescription Management I considered prescription management with: Other (Antiemetics, anti anxiolytics) Chronic Conditions Patient?s care impacted by: Other (Cannabis use disorder) Discharge Plan Discharge Clinical Impression: Cyclic vomiting syndrome, Acute hyperventilation syndrome, Cannabis use disorder Patient Disposition: Home, Self-Care Instructions: Hyperventilation (ED) Additional Instructions: Your blood work was normal. Your symptoms are consistent with cyclic vomiting syndrome which can sometimes be triggered by daily marijuana use. The theory is that marijuana can change your blood chemistries in the area of your brain that can cause vomiting. You will need to stop smoking marijuana for at least 3-6 months before your symptoms improve. The cramping in your hands and feet and the numbness and tingling is in your hands and feet are caused by hyperventilation syndrome. Please read the printed instructions on this condition. Take Zofran ODT 4 mg pills, 1 pill dissolved in your mouth every 8 hours as needed for nausea and vomiting. Take Ativan 1 mg pills, 1 pill every 6 hours as needed for anxiety. Take this for the symptoms that you get with your hyperventilation syndrome. ?This medication will make you sleepy, do not drive or work while taking this medication. ?This medication can be addicting, if your concerned about addiction you can ask the pharmacist for less medications or do not get the prescription filled. Follow-up with your doctor in 2 days. Please return to the emergency department if your symptoms get worse or if you develop any symptoms that are concerning to you. Prescriptions: New lorazepam [Ativan] 1 mg tablet 1 mg PO TID PRN (Reason: anxiety) Qty: 10 0RF Rx Instructions: Patient may request partial fill ondansetron 4 mg tablet,disintegrating 4 mg PO Q6-8H PRN (Reason: nausea and vomiting) Qty: 14 0RF No Action lamotrigine [Lamictal] 100 mg tablet 300 mg PO BID 30 Days Qty: 180 3RF valacyclovir [Valtrex] 1 gram tablet 1,000 mg PO BID 7 Days Qty: 14 0RF Print Language: Congolese
[2023-10-02] MEDS: droPERidol 5 MG/2 ML VIAL 1.25 MG IVPUSH (00:25)
[2023-10-02] MEDS: 0.9 % Sodium Chloride 1,000 ML 999 ML IV ×2 (00:25)
[2023-10-02] MEDS: LORazepam 2 MG/ML VIAL 1 MG IVPUSH (00:26)
--- NOTE | 2023-10-02 00:27 | PC.NURSE ---
this rn assumed care of pt, pt a&ox4, respirations even and unlabored. pt reporting onset of nausea, vomiting and diarrhea x1 day. pt reports he has been smoking a lot of marijuana and believes it may be the cause. pt denies chest pain at this time. pt medciated per may, 20G placed in left ac.
[2023-10-02 02:52] VITALS: BP 121/83; PULSE 65; RESP 18; TEMP 36.9; O2SAT 97
[2023-10-02 02:59] VITALS: BP 121/83; PULSE 65; RESP 18; TEMP 36.9; O2SAT 97
== END 2023-10-02 03:00 | disposition home or self-care (01) ==
PROVIDERS: Emergency Provider Emergency Medicine Emergency Medical Services; PCP Physician Assistant
DX: R11.15 Cyclical vomiting syndrome unrelated to migraine (principal); F12.988 Cannabis use, unspecified with other cannabis-induced disorder; F45.8 Other somatoform disorders; F41.9 Anxiety disorder, unspecified; Z79.899 Other long term (current) drug therapy
CPT/HCPCS: 36415; 80048; 80076; 81001; 83690; 85025; 96361; 96374; 96375; 99283; 99284; J1790; J2060

== ENCOUNTER 2023-10-25 08:29 | Outpatient (AMB) | payer OTHER, SELFPAY ==
[2023-10-25 08:33] VITALS: BP 118/86; PULSE 63; O2SAT 98; BMI 23.5
--- NOTE | 2023-10-25 08:33 | MHC.PC.OV ---
Vital Signs 10/25/23 08:33 Height 5 ft 10 in Weight 164 lb BMI 23.5 BP 118/86 Blood Pressure Location Lt brachial Position Sitting Pulse 63 Pulse Source Pulse Oximeter Pulse Oximetry (%) 98 Oxygen Delivery Method Room Air Intake Visit Reasons: Rash on genitals Monitoring Coordinator Required: No Accompanied by: Self / Same As Patient Allergies acetaminophen [From VICODIN] Allergy (Unknown, Verified 10/25/23 08:45) VOMIT diazepam [From VALIUM] Allergy (Unknown, Verified 10/25/23 08:45) VOMIT hydrocodone [From VICODIN] Allergy (Unknown, Verified 10/25/23 08:45) VOMIT oxycodone [From PERCOCET] Allergy (Unknown, Verified 10/25/23 08:45) VOMIT Medication List - Last Reconciled 10/25/23 by Fortino Chacko PA-C lamotrigine (Lamictal) 300 mg (3 x 100 mg) PO BID 30 days ondansetron 4 mg PO Q6-8H PRN valacyclovir (Valtrex) 1,000 mg PO BID 7 days Tobacco use date assessed: 09/28/23 Dental Screening Dental Screen Date: 09/28/23 HPI Rash on genitals HPI Details Patient is a 38-year-old male here today for follow-up visit. Patient has a past medical history significant for epilepsy. Continues on Lamictal with good effect. He denies any recent seizure activity. Did reduce his Lamictal dose to 300 b.i.d. and reports his side effects from medication resolved. Of note has lost significant amount of weight due to his upper GI issues. Was seen recently at [facility] for this problem. Was diagnosed with cyclic vomiting syndrome secondary to marijuana use. He has been trying to reduce his marijuana use to only nighttime use. [facility] Medical History Condyloma acuminata Lesion of penis Anxiety Generalized skin lumps Broken leg Epilepsy Surgical History History of surgical removal of skin lesion (~05/25/23) History of wisdom tooth extraction History of discectomy Family History Mother Alcoholism Breast cancer Substance use disorder Father Alcoholism Substance use disorder Parkinson disease Paternal Grandfather Lung cancer Maternal Grandmother Breast cancer Social History Housing: Apartment Alcohol intake: current Alcohol intake frequency: holidays/special occasions only Alcohol type: beer and wine Patient Tobacco Use Status: Former Tobacco user Tobacco use type: Cigarette e-Cigarette/Vaping Use: Former Use Second Hand Smoke Exposure: No Substance Use Type: Marijuana service: No Current occupational status: employed 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 Oscar Funes, Sylvie Hollingsworth, David Rivera and colleagues, with an educational jaelyn from [employer]. Review of Systems Const Denies headache(s) Eyes Denies loss of vision ENT Denies vertigo, Denies dizziness, Denies headache(s) and Denies sore throat Card Denies chest pain, Denies leg edema and Denies lightheadedness Resp Denies cough, Denies hemoptysis and Denies wheezing GI Denies abdominal pain, Denies melena, Denies constipation, Denies diarrhea and Denies vomiting Denies dysuria, Denies urinary frequency and Denies urinary urgency Musc Denies arthralgias, Denies joint swelling, Denies numbness and Denies tingling Neuro Denies Abnormal speech present, Denies behavioral changes, Denies vertigo, Denies dizziness, Denies headache(s), Denies loss of vision, Denies memory loss, Denies numbness and Denies tingling Psych Denies anxiety, Denies behavioral changes, Denies depression, Denies memory loss and Denies panic attacks Saturnino/Lymph Denies easy bleeding and Denies easy bruising Aller/Immun Denies wheezing Physical exam (Primary Care) BMI result Body Mass Index 23.5 Tobacco/Smoking Status: Tobacco use Status Tobacco use date assessed 09/28/23 09/28/23 16:07 Patient Tobacco Use Status Former Tobacco user 09/28/23 16:29 Tobacco use type Cigarette 09/28/23 16:29 e-Cigarette/Vaping Use Former Use 09/28/23 16:29 Thrive Assessment: Date of Thrive Assessment Date Thrive assessed 04/27/23 09/28/23 16:03 Const General: healthy appearing, no acute distress, alert and awake Nutritional Appearance: well nourished Orientation/consciousness: oriented to person, oriented to place and oriented to time HENMT Ears: TM's normal bilaterally General nose exam: Normal nasal mucous membranes and turbinates present Eyes Conjunctivae: conjunctivae normal Sclerae: sclerae normal Pupils: Equal, round and reactive pupils present Neck Neck: Yes no lymphadenopathy and Yes no JVD Thyroid: Thyroid normal Carotids: no bruits Resp Effort & Inspection: normal respiratory effort and not tachypneic Auscultation: no crackles, no rales, no rhonchi and no wheezes Cardio Rate: regular rate Rhythm: regular rhythm Heart sounds: no murmurs and normal S1 and S2 GI Palpation (GI): Soft to palpation, nontender, no hepatomegaly and no splenomegaly Auscultation: normal bowel sounds Skin General skin exam: no rashes or lesions noted and dry skin Neuro General: oriented to person, oriented to place and oriented to time Cranial nerves: Yes Equal, round and reactive pupils present Speech: No Abnormal speech present Gait exam (Neuro): Normal gait present Motor exam (neuro): no tremor noted Extrem Right upper extremity: full ROM Left upper extremity: full ROM Right lower extremity: full ROM; no edema Left lower extremity: full ROM; no edema Psych Mental Status: mental status grossly normal Speech and movement: Normal speech and movement present Affect: normal affect Attitude: cooperative Thought process: Normal thought process present Assessment and Plan Assessment & Plan (1) Epilepsy: Comment: Follows with [facility] Neurology Code(s): G40.909 - Epilepsy, unspecified, not intractable, without status epilepticus Qualifiers: Epilepsy type: unspecified Intractability: not intractable Status epilepticus: without status epilepticus Qualified Code(s): G40.909 - Epilepsy, unspecified, not intractable, without status epilepticus Plan: Continues on Lamictal 300 b.i.d.. He reports his side effects have resolved. He has not had any recent seizure activity. (2) Cyclic vomiting syndrome: Code(s): R11.15 - Cyclical vomiting syndrome unrelated to migraine Plan: Was recently seen at the [place] [facility] for vomiting and nausea. Labs were stable. He did admit to daily all day marijuana use which is likely the reason for his cyclic vomiting syndrome. He has reduced his marijuana use to nighttime use only and his symptoms have resolved. Will supply patient with Zofran to use on a p.r.n. basis for nausea. Medications: Refilled ondansetron 4 mg PO Q6-8H PRN 14 tabs 0RF nausea and vomiting ondansetron 4 mg PO Q6-8H PRN 14 tabs 0RF nausea and vomiting ondansetron 4 mg PO Q6-8H PRN 14 tabs 0RF nausea and vomiting Coding Level of Care Code Est Pt Level 3 (68273) Diagnoses Nonintractable epilepsy without status epilepticus, unspecified epilepsy type G40.909 Epilepsy type: unspecified Intractability: not intractable Status epilepticus: without status epilepticus Cyclic vomiting syndrome R11.15
== END 2023-10-25 08:51 | disposition home or self-care (01) ==
PROVIDERS: PCP Physician Assistant; Visit Provider Physician Assistant
DX: G40.909 Epilepsy, unspecified, not intractable, without status epilepticus (principal); R11.15 Cyclical vomiting syndrome unrelated to migraine
CPT/HCPCS: 99213

== ENCOUNTER 2023-11-09 08:13 | Outpatient (REF) | payer OTHER, SELFPAY ==
[2023-11-09 09:37] LABS: Hematocrit 43.8 % (42.0-52.0); Mean Corpuscular HGB Conc 34.2 g/dl (31.0-36.0); Mean Corpuscular Hemoglobin 32.4 pg (27.0-33.0); Mean Corpuscular Volume 94.6 fL (80.0-98.0); Mean Platelet Volume 10.3 fL (9.4-12.4); Platelet Count 183 X10*3/uL (160-400); Red Blood Count 4.63 X10*6/uL (4.60-5.80); Red Cell Distribution Width 13.6 % (11.0-16.0)
[2023-11-09 10:18] LABS: Alanine Aminotransferase 23 U/L (0-40); Albumin Level 4.5 g/dL (3.5-5.0); Alkaline Phosphatase 93 U/L (39-117); Anion Gap 11 (12-20); Aspartate Amino Transferase 27 U/L (5-37); Bilirubin Total 0.4 mg/dL (0.0-1.0); Blood Urea Nitrogen 19 mg/dL (9-16); Calcium 9.4 mg/dL (8.4-10.2); Carbon Dioxide 25 mmol/L (22-29); Chloride 106 mmol/L (96-108); Estimated Glomerular Filt Rate > 60; Glucose Fasting 93 mg/dL (60-99); Potassium 3.7 mmol/L (3.3-5.1); Sodium 138 mmol/L (135-145)
[2023-11-12 19:23] LABS: Lamotrigine Lamictal 9.6 mcg/mL (2.5-15.0)
== END 2023-11-09 08:14 | disposition home or self-care (01) ==
LOC: HO.LAB 08:13
PROVIDERS: PCP Physician Assistant; Visit Provider Physician Assistant
DX: Z13.1 Encounter for screening for diabetes mellitus (principal); G40.909 Epilepsy, unspecified, not intractable, without status epilepticus
CPT/HCPCS: 36415; 80053; 80175; 85027

== ENCOUNTER 2024-04-02 10:19 | Outpatient (AMB) | payer OTHER, SELFPAY ==
--- NOTE | 2024-04-02 10:40 | MHC.PC.OV ---
Vital Signs 04/02/24 10:41 Height 5 ft 10 in Weight 168 lb 4 oz BMI 24.1 BP 130/90 H Blood Pressure Location Lt brachial Position Sitting Pulse 78 Pulse Source Pulse Oximeter Pulse Oximetry (%) 99 Oxygen Delivery Method Room Air Intake Visit Reasons: follow up Transplant Surgeon Required: No Accompanied by: Self / Same As Patient Allergies acetaminophen [From VICODIN] Allergy (Unknown, Verified 04/02/24 10:50) VOMIT diazepam [From VALIUM] Allergy (Unknown, Verified 04/02/24 10:50) VOMIT hydrocodone [From VICODIN] Allergy (Unknown, Verified 04/02/24 10:50) VOMIT oxycodone [From PERCOCET] Allergy (Unknown, Verified 04/02/24 10:50) VOMIT Medication List - Last Reconciled 04/02/24 by Fortino Chacko PA-C lamotrigine (Lamictal) 300 mg (3 x 100 mg) PO BID 30 days ondansetron 4 mg PO Q6-8H PRN valacyclovir (Valtrex) 1,000 mg PO BID 7 days Tobacco use date assessed: 04/02/24 Dental Screening Dental Screen Date: 04/02/24 Did you have a dental visit in the last 12 months?: Yes Did you have a dental problem in the last 6 months where you did not have access to dental care?: No Was dental information given to patient?: Patient has dentist HPI follow up HPI Details Patient is a 38-year-old male here today for follow-up visit He has a past medical history significant for epilepsy to which he takes lamotrigine 400 mg b.i.d.. Concerns--> Patient reports a knee injury occurred in December while the patient was skateboarding. 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 The patient reported the knee giving out and difficulty in maintaining activities since the injury. Limited extension and swelling have also been documented. Conservative treatments, including ACL exercises, have been attempted without sufficient improvement, indicating a possible complete meniscal tear. .. Genital warts: previously excised by a local surgeon, the patient noticed additional wart growth with rapid enlargement of one lesion, heightening his concerns about HPV and potential malignancy. He reports anxiety over longstanding genital warts and interest in further evaluation and management. .. Epilepsy: He reports not having a seizure in over 3 years. Continues on lamotrigine and followed by a neurologist at [facility]. He reports he has reduced his dose of lamotrigine due to side effects. Has not followed up with [facility] Neurology in quite some time. He would like a 2nd opinion with a new neurologist. [facility] Medical History (Updated 04/02/24 @ 11:06 by Fortino Chacko PA-C) Cyclic vomiting syndrome Condyloma acuminata Lesion of penis Anxiety Generalized skin lumps Broken leg Epilepsy Surgical History History of surgical removal of skin lesion (~05/25/23) History of wisdom tooth extraction History of discectomy Family History Mother Alcoholism Breast cancer Substance use disorder Father Alcoholism Substance use disorder Parkinson disease Paternal Grandfather Lung cancer Maternal Grandmother Breast cancer Social History Housing: Apartment Alcohol intake: current Alcohol intake frequency: holidays/special occasions only Alcohol type: beer and wine Patient Tobacco Use Status: Former Tobacco user Tobacco use type: Cigarette e-Cigarette/Vaping Use: Former Use Second Hand Smoke Exposure: No Substance Use Type: Marijuana service: No Current occupational status: employed 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 1. Little interest or pleasure in doing things: more than half the days 2. Feeling down, depressed, or hopeless: more than half the days 3. Trouble falling or staying asleep, or sleeping too much: more than half the days 4. Feeling tired or having little energy: more than half the days 5. Poor appetite or overeating: nearly every day 6. Feeling bad about yourself - or that you are a failure or have let yourself or your family down: nearly every day 7. Trouble concentrating on things, such as reading the newspaper or watching television: more than half the days 8. Moving or speaking so slowly that other people could have noticed. Or the opposite - being so fidgety or restless that you have been moving around a lot more than usual: more than half the days 9. Thoughts that you would be better off or of hurting yourself in some way: several days Total score: 19 88102 - PHQ-9 Billing: Yes Source: Developed by Drs. Oscar Funes, Sylvie Hollingsworth, David Rivera and colleagues, with an educational jaelyn from [employer]. Thrive Questionnaire Date Thrive assessed: 04/02/24 I am a: Patient What is your living situation today?: I have a steady place to live Within the past 12 months, did the food you bought not last and you didn't have the money to get more?: Never true Within the past 12 months, did you worry whether your food would run out before you got money to buy more?: Never true Do you have trouble paying for medicines?: No Do you have trouble getting transportation to medical appointments?: No Do you have trouble paying your heating and electricity bill?: No Do you have trouble taking care of your child, family member or friend?: No Do you have trouble with day-to-day activities such as bathing, preparing meals, shopping, managing finances, etc.?: No Are you currently unemployed and looking for a job?: No Are you interested in more education?: No Please select the resources that you would like help with: None Currently or been in a relationship where the following occur: No concerns reported THRIVE Score: 0 AUDIT C Alcohol Use Questionnaire (AUDIT-C) 1. How often do you have a drink containing alcohol?: Monthly or less 2. How many drinks containing alcohol do you have on a typical day when you are drinking?: 1 or 2 3. How often do you have six or more drinks on one occasion?: Less than monthly Total Score: 2 YOLA-7 AMB Questionnaire YOLA-7 Date YOLA - 7 assessed: 04/02/24 Feeling nervous, anxious, or on edge: 3 = Nearly every day Not being able to stop or control worryin = Nearly every day Worrying too much about different things: 3 = Nearly every day Trouble relaxin = Nearly every day Being so restless that it is hard to sit still: 2 = More than half the days Becoming easily annoyed or irritable: 2 = More than half the days Feeling afraid as if something awful might happen: 3 = Nearly every day Total YOLA-7 score (0-4 normal; 5-9 mild; 10-14 moderate; 15-21 severe): 19 Source: Developed by Drs. Oscar Funes, Sylvie Hollingsworth, David Rivera and colleagues, with an educational jaelyn from [employer]. YOLA-7 Assessment Billing YOLA-7 Assessment Tool: YOLA-7 Assessment 51545 Review of Systems Const Denies headache(s) Eyes Denies loss of vision ENT Denies vertigo, Denies dizziness, Denies headache(s) and Denies sore throat Card Denies chest pain, Denies leg edema and Denies lightheadedness Resp Denies cough, Denies hemoptysis and Denies wheezing GI Denies abdominal pain, Denies melena, Denies constipation, Denies diarrhea and Denies vomiting Denies dysuria, Denies urinary frequency and Denies urinary urgency Musc Denies arthralgias, Denies joint swelling, Denies numbness and Denies tingling Neuro Denies Abnormal speech present, Denies behavioral changes, Denies vertigo, Denies dizziness, Denies headache(s), Denies loss of vision, Denies memory loss, Denies numbness and Denies tingling Psych Denies anxiety, Denies behavioral changes, Denies depression, Denies memory loss and Denies panic attacks Saturnino/Lymph Denies easy bleeding and Denies easy bruising Aller/Immun Denies wheezing Physical exam (Primary Care) Vital Signs: Last Vital Signs Pulse 78 04/02/24 10:41 BP 130/90 H 04/02/24 10:41 Pulse Ox 99 04/02/24 10:41 Oxygen Delivery Method Room Air 04/02/24 10:41 BMI result Body Mass Index 24.1 Tobacco/Smoking Status: Tobacco use Status Tobacco use date assessed 04/02/24 04/02/24 10:49 Patient Tobacco Use Status Former Tobacco user 04/02/24 10:41 Tobacco use type Cigarette 04/02/24 10:41 e-Cigarette/Vaping Use Former Use 04/02/24 10:41 PHQ-9: PHQ-9 Score PHQ-9: Total score 19 01/06/25 10:50 Thrive Assessment: Date of Thrive Assessment Date Thrive assessed 04/02/24 04/02/24 10:49 Currently or been in a relationship where the following occur: No concerns reported Const General: healthy appearing, no acute distress, alert and awake Nutritional Appearance: well nourished Orientation/consciousness: oriented to person, oriented to place and oriented to time HENMT Ears: TM's normal bilaterally General nose exam: Normal nasal mucous membranes and turbinates present Eyes Conjunctivae: conjunctivae normal Sclerae: sclerae normal Pupils: Equal, round and reactive pupils present Neck Neck: Yes no lymphadenopathy and Yes no JVD Thyroid: Thyroid normal Carotids: no bruits Resp Effort & Inspection: normal respiratory effort and not tachypneic Auscultation: no crackles, no rales, no rhonchi and no wheezes Cardio Rate: regular rate Rhythm: regular rhythm Heart sounds: no murmurs and normal S1 and S2 GI Palpation (GI): Soft to palpation, nontender, no hepatomegaly and no splenomegaly Auscultation: normal bowel sounds Skin General skin exam: no rashes or lesions noted and dry skin Neuro General: oriented to person, oriented to place and oriented to time Cranial nerves: Yes Equal, round and reactive pupils present Speech: No Abnormal speech present Gait exam (Neuro): Normal gait present Motor exam (neuro): no tremor noted Extrem Other: LEFT KNEE: SLIGHTLY EDEMATOUS COMPARED TO RIGHT KNEE, SOME LIMITED EXTENSION NOTED WITH LEFT KNEE EXTENSION Right upper extremity: full ROM Left upper extremity: full ROM Right lower extremity: full ROM; no edema Left lower extremity: full ROM; no edema Psych Mental Status: mental status grossly normal Speech and movement: Normal speech and movement present Affect: normal affect Attitude: cooperative Thought process: Normal thought process present Office Procedures Flu Questionnaire Does the patient have a severe egg allergy?: No Does the patient have severe life threatening allergies?: No Does the patient have a fever or illness today?: No Has the patient ever had Guillain-[place] Syndrome?: No Has the patient ever had any past reaction to a flu shot?: No Immunizations Fluarix Triv [id number] (PF) 45 mcg (15 mcg x 3)/0.5 mL IM syringe Performing Provider: Fortino Chacko PA-C Performing Location: [facility] [place] [facility] Administered by: ADRIANNA Cornell on 04/02/24 10:49 Dose Route Admin Location Dispensed Lot Number Expiration Date [employer] 0.5 mL IM Left Deltoid 0.5 mL [id number] 09/24/24 83185-897-30 [employer] VIS Given Date VIS Provided VIS Publication Date 04/02/24 Single Vaccine 20 Eligibility Eligibility Date Funding Source Not [facility] Eligible 04/02/24 Private Coding Level of Care Code Est Pt Level 4 (94733) Diagnoses Other tear of meniscus of left knee, unspecified meniscus, unspecified whether old or current tear, subsequent encounter S83.204D Encounter type: subsequent encounter Meniscus of knee: unspecified Meniscus tear of knee type: other type Tear current or old: unspecified Genital warts due to HPV (human papillomavirus) A63.0 Additional Codes YOLA-7 Assessment Billing - YOLA-7 Assessment Tool: YOLA-7 Assessment 61302 ([id number]) PHQ-9 - 26028 - PHQ-9 Billing: Yes ([id number]) Assessment & Plan Assessment & Plan (1) Tear of meniscus of left knee: Code(s): S83.207A - Unspecified tear of unspecified meniscus, current injury, left knee, initial encounter Category: Medical Qualifiers: Encounter type: subsequent encounter Meniscus of knee: unspecified Meniscus tear of knee type: other type Tear current or old: unspecified Qualified Code(s): S83.204D - Other tear of unspecified meniscus, current injury, left knee, subsequent encounter Plan: I discussed with the patient the probable meniscal tear based on the history of the skateboarding injury and the persistence of symptoms. I outlined the necessity of an MRI to confirm the diagnosis and guide treatment, whether surgical or therapeutic. Additionally, I explained that while surgery might be an option, physical therapy could also be beneficial post-assessment (2) Genital warts due to HPV (human papillomavirus): Code(s): A63.0 - Anogenital (venereal) warts Category: Medical Plan: Regarding the HPV-associated warts, I reviewed options for removal and biopsy to ensure no underlying malignancy. The potential for infectious disease referral was mentioned to consider broader treatment options given the chronic nature of the HPV infection. Orders: Orders Influenza [id number] Immunization Today Z23 - Encounter for immunization MR knee LT wo con Today S83.204D - Other tear of unspecified meniscus, current injury, left knee, subsequent encounter Comprehensive [place]. Panel Fast Today Z13.1 - Encounter for screening for diabetes mellitus Referrals Orthopedics Referral S83.204D - Other tear of unspecified meniscus, current injury, left knee, subsequent encounter General Surgery Referral A63.0 - Anogenital (venereal) warts
[2024-04-02 10:41] VITALS: BP 130/90; PULSE 78; O2SAT 99; BMI 24.1
== END 2024-04-02 11:05 | disposition home or self-care (01) ==
PROVIDERS: PCP Physician Assistant; Visit Provider Physician Assistant
DX: S83.204D Other tear of unspecified meniscus, current injury, left knee, subsequent encounter (principal); A63.0 Anogenital (venereal) warts; Z23 Encounter for immunization

== ENCOUNTER → 2024-04-02 10:19 | Outpatient (BNVA) | payer OTHER, SELFPAY | PROVIDERS: PCP Physician Assistant; Visit Provider Physician Assistant | DX: S83.204D Other tear of unspecified meniscus, current injury, left knee, subsequent encounter (principal); E63.0 Essential fatty acid [EFA] deficiency; Z23 Encounter for immunization; G40.909 Epilepsy, unspecified, not intractable, without status epilepticus; Z79.899 Other long term (current) drug therapy | CPT/HCPCS: 90471; 90656; 96127 ==

== ENCOUNTER → 2024-05-06 14:26 | Outpatient (BNV) | payer OTHER, SELFPAY | PROVIDERS: PCP Physician Assistant; Visit Provider Radiology Diagnostic Radiology | DX: M25.562 Pain in left knee (principal) | CPT/HCPCS: 73721 ==

== ENCOUNTER 2024-05-06 14:27 | Outpatient (REF) | payer OTHER, SELFPAY | END 2024-05-06 14:28 | disposition home or self-care (01) | LOC: HO.MRI 14:27 | PROVIDERS: PCP Physician Assistant; Visit Provider Physician Assistant | DX: S83.204D Other tear of unspecified meniscus, current injury, left knee, subsequent encounter (principal) | CPT/HCPCS: 73721 ==

== ENCOUNTER 2024-05-23 15:51 | Outpatient (AMB) | payer OTHER, SELFPAY ==
--- NOTE | 2024-05-23 15:52 | A.OFFVIS_ITS ---
Vital Signs 05/23/24 15:56 Height 5 ft 10 in Weight 168 lb 4.003 oz BMI 24.1 Intake Visit Reasons: Wart removal Intake Note: This patient presents for anogenital (venereal) warts. Pt c/o; no complaints. Social Work Manager Required: No Accompanied by: Self / Same As Patient Allergies acetaminophen [From VICODIN] Allergy (Unknown, Verified 05/23/24 15:55) VOMIT diazepam [From VALIUM] Allergy (Unknown, Verified 05/23/24 15:55) VOMIT hydrocodone [From VICODIN] Allergy (Unknown, Verified 05/23/24 15:55) VOMIT oxycodone [From PERCOCET] Allergy (Unknown, Verified 05/23/24 15:55) VOMIT Medication List - Last Reconciled 05/23/24 by Dickson Smith MD lamotrigine (Lamictal) 300 mg (3 x 100 mg) PO BID 30 days ondansetron 4 mg PO Q6-8H PRN valacyclovir (Valtrex) 1,000 mg PO BID 7 days HPI HPI Wart removal: Details: He is here for more condylomas on his penis. I had removed some condylomatous lesions a year ago. He says he has noticed some new lesions that have grown again. He denies any discharge or any inflammatory process. [facility] Medical History (Updated 05/23/24 @ 16:05 by Dickson Smith MD) Condyloma acuminatum of penis Cyclic vomiting syndrome Condyloma acuminata Lesion of penis Anxiety Generalized skin lumps Broken leg Epilepsy Surgical History History of surgical removal of skin lesion (~05/25/23) History of wisdom tooth extraction History of discectomy Family History Mother Alcoholism Breast cancer Substance use disorder Father Alcoholism Substance use disorder Parkinson disease Paternal Grandfather Lung cancer Maternal Grandmother Breast cancer Social History Housing: Apartment Alcohol intake: current Alcohol intake frequency: holidays/special occasions only Alcohol type: beer and wine Patient Tobacco Use Status: Former Tobacco user Tobacco use type: Cigarette e-Cigarette/Vaping Use: Former Use Second Hand Smoke Exposure: No Substance Use Type: Marijuana service: No Current occupational status: employed 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 Current occupational exposures/hazards: No Cognitive needs: No Hearing needs: No Vision needs: Yes Review of Systems Const Denies chills and Denies fever(s) Card Denies chest pain, Denies dyspnea and Denies dyspnea on exertion Resp Denies cough, Denies dyspnea and Denies dyspnea on exertion GI Denies hematochezia and Denies change in bowel habits Denies hematuria and Denies difficulty urinating Musc Details: Has a recent knee injury Denies back pain, Reports arthralgias and Reports limited range of motion Neuro Denies focal weakness and Denies convulsions Psych Denies depression and Denies mood swings Physical Exam Vital Signs: BMI result Body Mass Index 24.1 Const Other: Walks with a cane General: comfortable and no acute distress Orientation/consciousness: patient oriented x3 Neck Neck: Yes no lymphadenopathy Resp Auscultation: clear to auscultation bilaterally Cardio Rhythm: regular rhythm GI Palpation (GI): Soft to palpation, nontender and no guarding Other: Multiple condylomatous lesions on the penile shaft, with various sizes from 2 mm to about 6 mm Neuro General: patient oriented x3 Assessment & Plan Assessment & Plan (1) Condyloma acuminatum of penis: Code(s): A63.0 - Anogenital (venereal) warts Category: Medical Plan: He has more lesions on the penile shaft now and wants these removed. I explained the technique of excision under local anesthesia. I reviewed the r isks including but not limited bleeding and infections. He understands and wants to proceed This will be done in the office on his next visit. Coding Level of Care Code Est Pt Level 3 (64576) Diagnoses Condyloma acuminatum of penis A63.0
[2024-05-23 15:56] VITALS: BMI 24.1
--- OUTSIDE RECORDS SUMMARY | 2024-05-23 19:23 | XMS_ITS | Encounter Summary ---
Author Organization [facility] Address [address] [place] [address] Phone Care Team Providers Care Nutrition Counselor Name Role Phone Ayana An MD Primary Care Provider [phone] Encounter Details Date Type Department Care Team (Late st Contact Info) Description 01/27/2017 Conversion Encounter [facility] [place] [address] [place] [address] Social History Tobacco Use Types Packs/Day Years Used Date Smoking Tobacco: Never Assessed Sex and Gender Information Value Date Recorded Sex Assigned at Not on file Legal Sex Male 4:25 PM EDT Gender Identity Not on file Sexual Orientation Not on file documented as of this encounter Plan of Treatment Not on file documented as of this encounter Visit Diagnoses Not on filedocumented in this encounter Care Teams Nutrition Counselor Relationship Specialty Start Date End Date Ayana An MD [address] [place] [address] PCP - General 11/05/16 documented as of this encounter
--- OUTSIDE RECORDS SUMMARY | 2024-05-23 19:23 | XMS_ITS | Clinical Summary ---
Author Organization [facility] Address [address] [place] [phone] Phone Care Team Providers Care See Supervisor Name Role Phone Ayana An MD Primary Care Provider [phone] Immunizations Immunization Administration Dates Next Due DTP 10/16/1992, 9,02/12/1988,11/07,1987 Hep B, ped/adol 09/09/1999,03/31/1999,02/26/1999 Hib (HbOC) 02/12/1989 MMR 03/31/1999,11/13/1988 Meningococcal Conj (Menactra) MCV4P 10/25/2007 OPV 10/16/1992, 9,01/22/1988,09/16 Td (adult) (Tenivac), 5 Lf t etanus toxoid, PF, adsorbed 02/26/1999 Tdap 10/25/2007 Family History Relation Name Status Comments Father Alive Father: Hyperli pidemia / GERD / Depression Mother Alive Mother: Hyperte nsion / Hypothroid Other Family history of Sudden /[place] under age 55, Family history of Elevated cholesterol Sister Alive Sister: Alive a nd well Social History Tobacco Use Types Packs/Day Years Used Date Smoking Tobacco: Never Assessed Sex and Gender Information Value Date Recorded Sex Assigned at Not on file Legal Sex Male 4:25 PM EDT Gender Identity Not on file Sexual Orientation Not on file Plan of Treatment Health Maintenance Due Date Last Done Comments Varicella Vaccines (1 of 2 - 13+ 2-dose series) 08/04/2000 DTaP,Tdap,and Td Vaccines (7 - Td or Tdap) 10/24/2017 10/25/2007, 02/26/1999, 10/16/1992, Additional history exists Influenza Vaccines (#1) 2023 COVID-19 Vaccine ( season) 2023 HIB Vaccines Completed 02/12/1989 IPV Vaccines Completed 10/16/1992, 02/25, 01/22/1988, Additional history exists MMR Vaccines Completed 03/31/1999, 11/13/1988 Hepatitis B Vaccines Completed 09/09/1999, 03/31/1999, 02/26/1999 Meningococcal Vaccine Aged Out 10/25/2007 No mary jael eligible based on patient's age to complete this topic HPV Vaccines Aged Out No longer eligi ble based on patient's age to complete this topic Hepatitis A Vaccines Aged Out No long er eligible based on patient's age to complete this topic Men B Vaccine Aged Out No longer elig ible based on patient's age to complete this topic Pneumococcal Vaccine Aged Out No long er eligible based on patient's age to complete this topic Care Teams See Supervisor Relationship Specialty Start Date End Date Ayana An MD [address] [place] [address] SHIRA Moralez [address] PCP - General 11/05/16
== END 2024-05-23 16:08 | disposition home or self-care (01) ==
PROVIDERS: PCP Physician Assistant; Visit Provider Surgery
DX: A63.0 Anogenital (venereal) warts (principal)
CPT/HCPCS: 99213

== ENCOUNTER 2024-05-28 13:56 | Outpatient (AMB) | payer OTHER, SELFPAY ==
[2024-05-28 14:09] VITALS: BMI 24.1
--- NOTE | 2024-05-28 14:09 | A.OFFVIS_ITS ---
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 Patient reports that he injured his knee while skateboarding in December of 2023, since the injury he has had persistant pain, instability and decreased ROM. Currently he reports that his pain is gone but he has continued weakness of the knee, he has popping and the knee gives out on him. He has done home therapy, he like to run but has avoided thus because of his instability so he has been utilizing a stationary bike. 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 IMPRESSION: 1. Small bone contusion involving the medial tibial spine. Large suprapatellar joint effusion. 2. ACL tear. 3. Longitudinal split tear of the posterior cruciate ligament. 4. Large bucket-handle tear of the medial meniscus, with a large meniscal fragment displaced into the intercondylar notch. 5. Strain versus partial tear of the popliteus muscle. Probable muscle strain involving the soleus and gastrocnemius muscles. 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 He has been unable to have this treated as he can't afford to take time off of work. 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 He had worsening loss of extension that has partially improved. [facility] Medical History Condyloma acuminatum of penis Cyclic vomiting syndrome Condyloma acuminata Lesion of penis Anxiety Generalized skin lumps Broken leg Epilepsy Surgical History History of surgical removal of skin lesion (~05/25/23) History of wisdom tooth extraction History of discectomy Family History Mother Alcoholism Breast cancer Substance use disorder Father Alcoholism Substance use disorder Parkinson disease Paternal Grandfather Lung cancer Maternal Grandmother Breast cancer Social History Housing: Apartment Alcohol intake: current Alcohol intake frequency: holidays/special occasions only Alcohol type: beer and wine Patient Tobacco Use Status: Former Tobacco user Tobacco use type: Cigarette e-Cigarette/Vaping Use: Former Use Second Hand Smoke Exposure: No Substance Use Type: Marijuana service: No Current occupational status: employed 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 +ant drawer/ Keisha[employer] Results Reviewed Results Reviewed: I personally reviewed the MR images. 1. Small bone contusion involving the medial tibial spine. Large suprapatellar joint effusion. 2. ACL tear. 3. Longitudinal split tear of the posterior cruciate ligament. 4. Large bucket-handle tear of the medial meniscus, with a large meniscal fragment displaced into the intercondylar notch. 5. Strain versus partial tear of the popliteus muscle. Probable muscle strain involving the soleus and gastrocnemius muscles. Electronically signed by: Oscar Bowers MD 05/07/2024 09:00 AM [facility] Assessment & Plan Assessment & Plan (1) ACL tear: Code(s): S83.519A - Sprain of anterior cruciate ligament of unspecified knee, initial encounter Category: Medical Plan: This is a 38 yo M with a rupture of his ACL and a displaced bucket handle medial meniscus tear with loss of extension. I recommend ACL reconstruction with allograft and a medial meniscectomy vs repair. I discussed with him the r/b/a including, but not limited to, infection, stiffness, need for additional surgery, inability to recover fully and/or in a timely manner. He expressed understanding and we will proceed forward. (2) Bucket handle tear of medial meniscus of knee as current injury: Code(s): S83.219A - Bucket-handle tear of medial meniscus, current injury, unspecified knee, initial encounter Category: Medical Plan: Coding Level of Care Code Est Pt Level 4 (25930) Diagnoses ACL tear S83.519A Bucket handle tear of medial meniscus of knee as current injury S83.219A
--- OUTSIDE RECORDS SUMMARY | 2024-05-28 16:33 | XMS_ITS | Encounter Summary ---
Author Organization [facility] Address [address] [place] [address] Phone Care Team Providers Care Clinical Documentation Consultant Name Role Phone Ayana An MD Primary Care Provider [phone] Encounter Details Date Type Department Care Team (Late st Contact Info) Description 01/27/2017 Conversion Encounter [facility] [place] [address] [place] [address] Social History Tobacco Use Types Packs/Day Years [...] on filedocumented in this encounter Care Teams Clinical Documentation Consultant Relationship Specialty Start Date End Date Ayana An MD [address] [place] [address] PCP - General 11/05/16 documented as of this encounter
--- OUTSIDE RECORDS SUMMARY | 2024-05-28 16:33 | XMS_ITS | Clinical Summary ---
Author Organization [facility] Address [address] [place] [id number] Phone Care Team Providers Care Civil Engineering Technician Name Role Phone Ayana An MD Primary Care Provider [phone] Immunizations Immunization Administration Dates Next Due DTP [...] / Hypothroid Other Family history of Sudden /[place] under age 55, Family history of Elevated [...] age to complete this topic Care Teams Civil Engineering Technician Relationship Specialty Start Date End Date Ayana An MD [address] [place] [address] SHIRA Moralez [address] PCP - General 11/05/16
== END 2024-05-28 14:57 | disposition home or self-care (01) ==
PROVIDERS: PCP Physician Assistant; Visit Provider Orthopaedic Surgery
DX: S83.519A Sprain of anterior cruciate ligament of unspecified knee, initial encounter (principal); S83.21 Bucket-handle tear of medial meniscus, current injury
CPT/HCPCS: 99214

== ENCOUNTER 2024-06-04 15:55 | Outpatient (AMB) | payer OTHER, SELFPAY ==
--- NOTE | 2024-06-04 15:55 | MHC.OFFVIS ---
Intake Visit Reasons: Excision lesion penile shaft Intake Note: Office procedure: excision lesion penile shaft. Log Roller Required: No Accompanied by: Self / Same As Patient Allergies acetaminophen [From VICODIN] Allergy (Unknown, Verified 06/04/24 15:58) VOMIT diazepam [From VALIUM] Allergy (Unknown, Verified 06/04/24 15:58) VOMIT hydrocodone [From VICODIN] Allergy (Unknown, Verified 06/04/24 15:58) VOMIT oxycodone [From PERCOCET] Allergy (Unknown, Verified 06/04/24 15:58) VOMIT HPI HPI Excision lesion penile shaft : Details: He is here for excision of condylomatous appearing lesions on the penis and scrotum. [facility] Medical History Condyloma acuminatum of penis Cyclic vomiting syndrome Condyloma acuminata Lesion of penis Anxiety Generalized skin lumps Broken leg Epilepsy Surgical History History of surgical removal of skin lesion (~05/25/23) History of wisdom tooth extraction History of discectomy Family History Mother Alcoholism Breast cancer Substance use disorder Father Alcoholism Substance use disorder Parkinson disease Paternal Grandfather Lung cancer Maternal Grandmother Breast cancer Social History Housing: Apartment Alcohol intake: current Alcohol intake frequency: holidays/special occasions only Alcohol type: beer and wine Patient Tobacco Use Status: Former Tobacco user Tobacco use type: Cigarette e-Cigarette/Vaping Use: Former Use Second Hand Smoke Exposure: No Substance Use Type: Marijuana service: No Current occupational status: employed 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 He had 3 condylomatous looking lesions on the penile shaft, about 2-3 mm in size. He had a 7 mm condylomatous looking lesion on the right scrotum and had a 7 mm condylomatous looking lesion on the right groin. These areas were prepped and draped. Lidocaine 1% was used for local anesthesia I excised the small lesions on the penile shaft with Metzenbaum scissors and cauterized the excision site to achieve hemostasis I made an elliptical incision on each of the condylomatous looking lesion in the right scrotum and the right groin with a blade 15.. This carried down to excise this entire lesion and full-thickness of the skin. I closed both incisions with full-thickness chromic 3-0 simple interrupted sutures. Dressings were applied. The procedure was completed. He tolerated procedure well. There were no immediate complications A total of 5 lesions were therefore removed. 20861-rrttf/arms/legs 1.1-2cm 83933-gcfpj/arms/legs 2.1-3cm Procedure code (CPT) selection complete Assessment & Plan Assessment & Plan (1) Lesion of penis: Code(s): N48.9 - Disorder of penis, unspecified Category: Medical Plan: Excision of 5 lesions were removed. Three of the lesions measured about 2-3 mm in size. Two lesions were about 7 mm in size each He was given wound care instructions. I will see him for a wound check in about 2 weeks. Coding Level of Care Code Procedure Only Diagnoses Lesion of penis N48.9 CPT Codes Trunk/Arms/Legs - CPT: 10003-hzudi/arms/legs 1.1-2cm ([id number]) Trunk/Arms/Legs - CPT: 49700-vrwor/arms/legs 2.1-3cm ([id number])
== END 2024-06-04 16:19 | disposition home or self-care (01) ==
PROVIDERS: PCP Physician Assistant; Visit Provider Surgery
DX: D29.0 Benign neoplasm of penis (principal); L82.1 Other seborrheic keratosis
CPT/HCPCS: 11401; 54060

== ENCOUNTER 2024-06-04 15:55 | Outpatient (REF) | payer OTHER, SELFPAY ==
--- OUTSIDE RECORDS SUMMARY | 2024-06-04 18:09 | XMS_ITS | Clinical Summary ---
Author Organization [facility] Address [address] [place] [address] Phone Care Team Providers Care Deputy Editor In Chief Name Role Phone Ayana An MD Primary Care Provider [phone] Immunizations Immunization Administration Dates Next Due DTP [...] / Hypothroid Other Family history of Sudden /[place] under age 55, Family history of Elevated [...] age to complete this topic Care Teams Deputy Editor In Chief Relationship Specialty Start Date End Date Ayana An MD [address] [place] [address] SHIRA Moralez [address] PCP - General 11/05/16
--- OUTSIDE RECORDS SUMMARY | 2024-06-04 18:09 | XMS_ITS | Encounter Summary ---
Author Organization [facility] Address [address] [place] [address] Phone Care Team Providers Care Players Club Representative Name Role Phone Ayana An MD Primary Care Provider [phone] Encounter Details Date Type Department Care Team (Late st Contact Info) Description 01/27/2017 Conversion Encounter [facility] [place] [address] [place] [address] Social History Tobacco Use Types Packs/Day Years [...] on filedocumented in this encounter Care Teams Players Club Representative Relationship Specialty Start Date End Date Ayana An MD [address] [place] [address] PCP - General 11/05/16 documented as of this encounter
== END 2024-06-04 15:56 | disposition home or self-care (01) ==
LOC: HO.LNP 15:55
PROVIDERS: PCP Physician Assistant; Visit Provider Surgery
DX: L82.0 Inflamed seborrheic keratosis (principal); N48.9 Disorder of penis, unspecified; N48.89 Other specified disorders of penis
CPT/HCPCS: 11401; 54060; 88304; 88305

== ENCOUNTER 2024-07-30 14:32 | Outpatient (AMB) | payer OTHER, SELFPAY ==
--- NOTE | 2024-07-30 14:42 | MHC.OFFVIS ---
Intake Visit Reasons: Preop LT knee ACL recon/poss MMR 08/01/24 NE Intake Note: Fortino is a 38 year old male who presents today for a pre op appointment for his left knee ACL recon/poss MMR 08/01/24 NE. Patient informed me that he had a couple seizures due to his epilepsy. Allergies diazepam [From VALIUM] Allergy (Unknown, Verified 07/30/24 14:47) VOMIT hydrocodone [From VICODIN] Allergy (Unknown, Verified 07/30/24 14:47) VOMIT oxycodone [From PERCOCET] Allergy (Unknown, Verified 07/30/24 14:47) VOMIT HPI HPI Preop LT knee ACL recon/poss MMR 08/01/24 NE: Details: Mr. Johnson is a 38-year-old male who presents to the office today for his preoperative history and physical examination pending left knee ACL reconstruction with possible medial meniscal repair versus partial meniscectomy. Of note, patient does have a history of seizures. His last seizure was last week. Prior to this he had not had a seizure in 5 years. His PCP Johnathan Chacko PA-C manages his seizure medications. [facility] Medical History (Updated 06/27/24 @ 11:57 by Mariah Ibanez RN) Back pain Lumbar vertebral fracture COVID-19 Condyloma acuminatum of penis Cyclic vomiting syndrome Condyloma acuminata Lesion of penis Anxiety Generalized skin lumps Broken leg Epilepsy Surgical History (Updated 06/27/24 @ 11:45 by Mariah Ibanez RN) History of surgery on lower extremity History of surgical removal of skin lesion (~05/25/23) History of wisdom tooth extraction History of discectomy Family History Mother Alcoholism Breast cancer Substance use disorder Father Alcoholism Substance use disorder Parkinson disease Paternal Grandfather Lung cancer Maternal Grandmother Breast cancer Social History Housing: Apartment Are you a primary emergency care attendant to a significant other at home: No Do you presently have visiting nurse or other home services: No Alcohol intake: current Alcohol intake frequency: a few times a month Alcohol type: beer and wine Patient Tobacco Use Status: Former Tobacco user Tobacco use type: Cigarette e-Cigarette/Vaping Use: Former Use Second Hand Smoke Exposure: No Substance Use Type: Marijuana service: No Current occupational status: employed Current occupation: [employer] Current occupational exposures/hazards: No Cognitive needs: No Hearing needs: No Vision needs: Yes Review of Systems Const All systems reviewed & are unremarkable except as noted in HPI and below Physical Exam Extrem Other: ~10 deg loss of terminal extension. +ant drawer/ Keisha's Assessment & Plan Assessment & Plan (1) ACL tear: Code(s): S83.519A - Sprain of anterior cruciate ligament of unspecified knee, initial encounter Category: Medical (2) Bucket handle tear of medial meniscus of knee as current injury: Code(s): S83.219A - Bucket-handle tear of medial meniscus, current injury, unspecified knee, initial encounter Category: Medical Plan Mr. Johnson is a 38-year-old male who presents to the office today for his preoperative history and physical examination pending left knee ACL reconstruction with possible medial meniscal repair versus partial meniscectomy. Of note, patient does have a history of seizures. His last seizure was last week. Prior to this he had not had a seizure in 5 years. His PCP Johnathan Chacko PA-C manages his seizure medications. While the office today, I spoke with Dr. Montano, anesthesiologist, and discussed that the patient had a seizure last week. He has recommended that we reach out to his primary care provider for recommendations in regards to possibly increasing his seizure medication dosage. Patient was instructed to continue his current dosage until he speaks with his PCP. Additionally, our surgical schedulers have also reached out to Johnathan Chacko PA-C for further instruction via workload messages. Patient was fit for an ACL brace off the shelf while in the office today. Additionally, I sent a prescription for Percocet 5325 mg q.4-6 hours PRN pain as well as Zofran 4 mg disintegrating tablet for nausea PRN to the pharmacy. Patient should obtain these prescriptions prior to surgery. Patient understands that he should take these medications after surgery. Should he take these medications before surgery a refill will not be sent to the pharmacy until patient is due for refill. Patient will follow up at his normally scheduled follow up appointment, sooner if needed. Medications: New oxycodone-acetaminophen 5-325 mg Partial Fill upon patient request. 1 tab PO Q4-6H 7 days PRN 42 tabs 0RF pain ondansetron 8 mg PO BID 7 days PRN 14 tabs 0RF nausea and vomiting Coding Level of Care Code Global (53801) Diagnoses ACL tear S83.519A Bucket handle tear of medial meniscus of knee as current injury S83.219A
--- OUTSIDE RECORDS SUMMARY | 2024-07-30 16:05 | XMS_ITS | Clinical Summary ---
Author Organization [facility] Address [address] [place] [address] Phone Care Team Providers Care Accounts Payable Technician Name Role Phone Ayana An MD Primary Care Provider [phone] Immunizations Immunization Administration Dates Next Due DTP [...] / Hypothroid Other Family history of Sudden /AL under age 55, Family history of Elevated [...] age to complete this topic Care Teams Accounts Payable Technician Relationship Specialty Start Date End Date Ayana An MD [address] [place] [address] SHIRA Moralez [phone] PCP - General 11/05/16
--- OUTSIDE RECORDS SUMMARY | 2024-07-30 16:05 | XMS_ITS | Encounter Summary ---
Author Organization [facility] Address [address] [place] [address] Phone Care Team Providers Care Tool Machinist Name Role Phone Ayana An MD Primary Care Provider [phone] Encounter Details Date Type Department Care Team (Late st Contact Info) Description 01/27/2017 Conversion Encounter [facility] [place] [address] [place] [address] Social History Tobacco Use Types Packs/Day Years [...] on filedocumented in this encounter Care Teams Tool Machinist Relationship Specialty Start Date End Date Ayana An MD [address] [place] [address] PCP - General 11/05/16 documented as of this encounter
== END 2024-07-30 15:14 | disposition home or self-care (01) ==
LOC: HO.HOS 14:33
PROVIDERS: PCP Physician Assistant; Visit Provider Physician Assistant
DX: S83.519A Sprain of anterior cruciate ligament of unspecified knee, initial encounter (principal); S83.21 Bucket-handle tear of medial meniscus, current injury
CPT/HCPCS: 99024

== ENCOUNTER → 2024-07-30 14:32 | Outpatient (BNVA) | payer OTHER, SELFPAY | PROVIDERS: PCP Physician Assistant; Visit Provider Physician Assistant ==

== ENCOUNTER 2024-08-01 08:22 | Day surgery (SDC) | payer OTHER, SELFPAY ==
[2024-06-27 11:54] VITALS: BMI 25.8
--- NOTE | 2024-06-28 12:45 | P.CONAN_ITS ---
HPI - Anesthesia Eval Consult details Narrative: 38yo M for Left ACL Reconstruction, possible medial meniscus repair, 08/01/24 Epilepsy - last seizure ~ 2019. Follows [facility] neurology No CP/SOB with running prior to injury PMFSH Active Problems Active Problems: All Active Problems Bucket handle tear of medial meniscus of knee as current injury (Acute) ACL tear (Acute) Tear of meniscus of left knee (Acute) HSV-1 (herpes simplex virus 1) infection (Acute) Screening for diabetes mellitus (DM) (Acute) Annual physical exam (Acute) Encounter for screening examination for sexually transmitted disease (Acute) Genital warts due to HPV (human papillomavirus) (Acute) Lipoma (Acute) Depression (Acute) Condyloma acuminatum of penis (Acute) Condyloma acuminata (Acute) Lesion of penis (Acute) Epilepsy (Acute) Past Medical History Medical History Back pain Lumbar vertebral fracture COVID-19 Condyloma acuminatum of penis Cyclic vomiting syndrome Condyloma acuminata Lesion of penis Anxiety Generalized skin lumps Broken leg Epilepsy Family History Family History Mother Alcoholism Breast cancer Substance use disorder Father Alcoholism Substance use disorder Parkinson disease Paternal Grandfather Lung cancer Maternal Grandmother Breast cancer Surgical History Surgical History History of surgery on lower extremity History of surgical removal of skin lesion (~05/25/23) History of wisdom tooth extraction History of discectomy Social History Social History Housing: Apartment Are you a primary disabilities caregiver to a significant other at home: No Do you presently have visiting nurse or other home services: No Alcohol intake: current Alcohol intake frequency: holidays/special occasions only Alcohol type: beer and wine Patient Tobacco Use Status: Former Tobacco user Tobacco use type: Cigarette e-Cigarette/Vaping Use: Former Use Second Hand Smoke Exposure: No Substance Use Type: Marijuana service: No Current occupational status: employed Current occupation: [employer] Current occupational exposures/hazards: No Cognitive needs: No Hearing needs: No Vision needs: Yes Meds Allergies Allergy/AdvReac Type Severity Reaction Status Date / Time diazepam [From VALIUM] Allergy Unknown VOMIT Verified 07/30/24 14:47 hydrocodone [From VICODIN] Allergy Unknown VOMIT Verified 07/30/24 14:47 oxycodone [From PERCOCET] Allergy Unknown VOMIT Verified 07/30/24 14:47 Home Medications ?Medication ?Instructions ?Recorded ?Confirmed ?Last Taken ?Type valacyclovir 1 gram tablet 1,000 mg PO BID PRN Outbreak 06/27/24 06/27/24 Unknown History (Valtrex) lamotrigine 100 mg tablet 400 mg PO BID 08/01/24 08/01/24 08/01/24 History (Lamictal) Exam Height,Weight and Vital Signs: Height 5 ft 10 in Weight 81.647 kg Assessment and Plan Assessment Anesthesia Assessment: Chart Reviewed
[2024-08-01] VITALS (13 sets, daily range): BP systolic 128–166; BP diastolic 82–121; PULSE 55–89; RESP 16–18; TEMP 36.8; O2SAT 97–100; BMI 23.3
--- NOTE | 2024-08-01 08:53 | MHC.SHP ---
Pre-Procedural Eval Section A - 24 Hr Update-Section A only Date of Service: 08/01/24 The patient is an INPATIENT: No Changes since office visit: No Cold of Flu in the past 2 weeks, No New Medical Problems, No Changes in Medication and No Patient answered all questions The patient has been examined within 24 hours of the surgical procedure. The History & Physical has been completed within 30 days and I have reviewed it.: Yes Section B - Complete if H&P > 30 days Chief Complaint: Other tear of medial meniscus, current injury, lef Allergies: Allergies Allergy/AdvReac Type Severity Reaction Status Date / Time diazepam [From VALIUM] Allergy Unknown VOMIT Verified 07/30/24 14:47 hydrocodone [From VICODIN] Allergy Unknown VOMIT Verified 07/30/24 14:47 oxycodone [From PERCOCET] Allergy Unknown VOMIT Verified 07/30/24 14:47 Plan I have reviewed the history and physical and performed a pertinent physical examination on my patient. No changes have occurred unless specified. Time Spent With Patient Time: Total time managing care of this patient today ____ minutes.
[2024-08-01] MEDS: Lactated Ringers 1,000 ML 100 ML IVCONT (09:06)
--- NOTE | 2024-08-01 10:16 | P.CONAN_ITS ---
ON LICENSE OF [facility] Active Problems Active Problems: All Active Problems Bucket handle tear of medial meniscus of knee as current injury (Acute) ACL tear (Acute) Tear of meniscus of left knee (Acute) HSV-1 (herpes simplex virus 1) infection (Acute) Screening for diabetes mellitus (DM) (Acute) Annual physical exam (Acute) Encounter for screening examination for sexually transmitted disease (Acute) Genital warts due to HPV (human papillomavirus) (Acute) Lipoma (Acute) Depression (Acute) Condyloma acuminatum of penis (Acute) Condyloma acuminata (Acute) Lesion of penis (Acute) Epilepsy (Acute) Past Medical History Medical History Back pain Lumbar vertebral fracture COVID-19 Condyloma acuminatum of penis Cyclic vomiting syndrome Condyloma acuminata Lesion of penis Anxiety Generalized skin lumps Broken leg Epilepsy Family History Family History Mother Alcoholism Breast cancer Substance use disorder Father Alcoholism Substance use disorder Parkinson disease Paternal Grandfather Lung cancer Maternal Grandmother Breast cancer Surgical History Surgical History History of surgery on lower extremity History of surgical removal of skin lesion (~05/25/23) History of wisdom tooth extraction History of discectomy Social History Social History Housing: Apartment Are you a primary home care attendant to a significant other at home: No Do you presently have visiting nurse or other home services: No Alcohol intake: current Alcohol intake frequency: holidays/special occasions only Alcohol type: beer and wine Patient Tobacco Use Status: Former Tobacco user Tobacco use type: Cigarette e-Cigarette/Vaping Use: Former Use Second Hand Smoke Exposure: No Use of substances other than those prescribed or required for medical reasons: Yes Substance Use Type: Marijuana Substance Use Frequency: Daily Have you been hit, kicked, punched, or otherwise hurt by someone within the past year? If so, by whom?: No Are you DNR?: No Advance Directives: No Advance Directives Information Provided: Yes Advance Directives on File: No Poor oral hygiene: No service: No Current occupational status: employed Current occupation: [employer] Current occupational exposures/hazards: No Cognitive needs: No Hearing needs: No Vision needs: Yes Meds Allergies Allergy/AdvReac Type Severity Reaction Status Date / Time diazepam [From VALIUM] Allergy Unknown VOMIT Verified 07/30/24 14:47 hydrocodone [From VICODIN] Allergy Unknown VOMIT Verified 07/30/24 14:47 oxycodone [From PERCOCET] Allergy Unknown VOMIT Verified 07/30/24 14:47 Active Medications: Current Medications Lactated Ringer's (Lr) 1,000 mls @ 100 mls/hr IVCONT .Q10H SAMARA Last Admin: 08/01/24 09:06 Dose: 100 mls/hr Home Medications ?Medication ?Instructions ?Recorded ?Confirmed ?Last Taken ?Type valacyclovir 1 gram tablet 1,000 mg PO BID PRN Outbreak 06/27/24 06/27/24 Unknown History (Valtrex) lamotrigine 100 mg tablet 400 mg PO BID 08/01/24 08/01/24 08/01/24 History (Lamictal) Exam Height,Weight and Vital Signs: Height 5 ft 10 in Weight 73.6 kg Last Vital Signs Temp 98.2 F 08/01/24 08:59 Pulse 61 08/01/24 08:59 Resp 16 08/01/24 08:59 BP 128/82 08/01/24 08:59 Pulse Ox 97 08/01/24 08:59 O2 Del Method Room Air 08/01/24 08:59
--- NOTE | 2024-08-01 10:20 | HO.ANESPROP2 ---
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) Screening for diabetes mellitus (DM) (Acute) Annual physical exam (Acute) Encounter for screening examination for sexually transmitted disease (Acute) Genital warts due to HPV (human papillomavirus) (Acute) Lipoma (Acute) Depression (Acute) Condyloma acuminatum of penis (Acute) Condyloma acuminata (Acute) Lesion of penis (Acute) Epilepsy (Acute) Past Medical History Medical History Back pain Lumbar vertebral fracture COVID-19 Condyloma acuminatum of penis Cyclic vomiting syndrome Condyloma acuminata Lesion of penis Anxiety Generalized skin lumps Broken leg Epilepsy Family History Family History Mother Alcoholism Breast cancer Substance use disorder Father Alcoholism Substance use disorder Parkinson disease Paternal Grandfather Lung cancer Maternal Grandmother Breast cancer Family history of problems with anesthesia: No Surgical History Surgical History History of surgery on lower extremity History of surgical removal of skin lesion (~05/25/23) History of wisdom tooth extraction History of discectomy History of Problems with Anesthesia: No Social History Social History Housing: Apartment Are you a primary child care education coordinator to a significant other at home: No Do you presently have visiting nurse or other home services: No Alcohol intake: current Alcohol intake frequency: holidays/special occasions only Alcohol type: beer and wine Patient Tobacco Use Status: Former Tobacco user Tobacco use type: Cigarette e-Cigarette/Vaping Use: Former Use Second Hand Smoke Exposure: No Use of substances other than those prescribed or required for medical reasons: Yes Substance Use Type: Marijuana Substance Use Frequency: Daily Have you been hit, kicked, punched, or otherwise hurt by someone within the past year? If so, by whom?: No Are you DNR?: No Advance Directives: No Advance Directives Information Provided: Yes Advance Directives on File: No Poor oral hygiene: No service: No Current occupational status: employed Current occupation: [employer] Current occupational exposures/hazards: No Cognitive needs: No Hearing needs: No Vision needs: Yes Meds Allergies Allergy/AdvReac Type Severity Reaction Status Date / Time diazepam [From VALIUM] Allergy Unknown VOMIT Verified 07/30/24 14:47 hydrocodone [From VICODIN] Allergy Unknown VOMIT Verified 07/30/24 14:47 oxycodone [From PERCOCET] Allergy Unknown VOMIT Verified 07/30/24 14:47 Active Medications: Current Medications Lactated Ringer's (Lr) 1,000 mls @ 100 mls/hr IVCONT .Q10H SAMARA Last Admin: 08/01/24 09:06 Dose: 100 mls/hr Home Medications ?Medication ?Instructions ?Recorded ?Confirmed ?Last Taken ?Type valacyclovir 1 gram tablet 1,000 mg PO BID PRN Outbreak 06/27/24 06/27/24 Unknown History (Valtrex) lamotrigine 100 mg tablet 400 mg PO BID 08/01/24 08/01/24 08/01/24 History (Lamictal) Exam Height,Weight and Vital Signs: Height 5 ft 10 in Weight 73.6 kg Last Vital Signs Temp 98.2 F 08/01/24 08:59 Pulse 61 08/01/24 08:59 Resp 16 08/01/24 08:59 BP 128/82 08/01/24 08:59 Pulse Ox 97 08/01/24 08:59 O2 Del Method Room Air 08/01/24 08:59 Airway Mallampati Class: I TM Dist: >3cm Neck ROM: Full Heart: RRR Lungs: CTA Assessment and Plan Assessment Anesthesia Assessment: Anesthesia Plan Discussed and Chart Reviewed Final Anesthetic Review Family History of Problems with Anesthesia: No History of Problems with Anesthesia: No NPO: Yes ASA Class: II Final Preanesthetic Review: No Changes in Pt Med Stat, Meds/Allgs Chart Reviewed, Consent Obtained/Reviewed and Anes Risks/Benef Reviewed Patient Risk: Low Procedure Risk: Low Anesthetic Plan Anesthetic Plan: GA and Regional Block Disposition: Standard PACU
[2024-08-01] MEDS: ceFAZolin Sodium/Dextrose,Iso 2 GM/50 ML PIGGYBACK IV (11:05)
--- NOTE | 2024-08-01 12:38 | PM.OP ---
Brief Operative Note Date of Service: 08/01/24 Pre-op diagnosis: Right ACL and bucket handle MMT Post-op diagnosis: same Procedure: ACL reconstruction with allograft and Medial meniscus repair Implants: [employer]on [employer]hew fast fix x5, meniscal cinches. ACL endo button 10x25 interference screw Surgeon: Zia Yun MD Anesthesia: GLMA Was an Bolt Machine Operator used for this Procedure?: Yes Bolt Machine Operator: Monica Tobin Estimated blood loss (mL): 25 Tourniquet time (min): 75 IV fluids (mL): 1,000 Pathology: none sent Condition: stable Disposition: PACU
[2024-08-01] MEDS: fentaNYL citrate/PF 100 MCG/2 ML VIAL 50 MCG IVPUSH ×4 (13:00→13:20)
--- NOTE | 2024-08-01 13:15 | P.OP_ITS ---
Operative Note Operative Note Date of Service: 08/01/24 Narrative: Date of Service: 08/01/24 Pre-op diagnosis: Right ACL and bucket handle MMT Post-op diagnosis: same Procedure: ACL reconstruction with allograft and Medial meniscus repair Implants: Britton [employer] Nephew fast fix x5, meniscal cinches. ACL endo button 10x25 interference screw Surgeon: Zia Yun MD Anesthesia: GLMA Was an Charge Master Coordinator used for this Procedure?: Yes Charge Master Coordinator: Monica Tobin Estimated blood loss (mL): 25 Tourniquet time (min): 75 IV fluids (mL): 1,000 Pathology: none sent Condition: stable Disposition: PACU Procedure in detail: Patient was brought to the operating room placed supine on the arthroscopic table and prepped and draped in standard sterile fashion. A time-out was called to identify proper site proper procedure proper surgeon and IV antibiotics per weight were administered. Under anesthesia she had a + pivot shift. I began by exsanguinating the limb and insufflating tourniquet to 300 mm Hg. Then made a standard anterolateral stab incision. The knee was insufflated with water and 30 degree arthroscope was placed. There was grade 1 fibrillations of the patella but overall suprapatellar pouch and the gutters were clean. I descended into the medial compartment where I made my far medial portal under direct visualization. There was an unstable bucket handle medial meniscus tear. The root was intact and the MFC was normal. I used 5 Fast Pass meniscal cinches (Britton and Nephew) to repair the tear through the AM portal and through the AL portal. I was satisfied with the extent of repair. I cycle the knee and the repair was stable. I used a probe to test it as well and it was stable. I then examined the notch where there was a + empty wall sign and an intact PCL. I debrided the stump and acl footprint and performed a limited notchplasty. I then, through a far AM portal and a 7mm behind the back guide, drilled a k-wire through the LFC with the knee in hyper-flexion. I measured the tunnel as a 29 and then after sizing the allograft on the back table drilled a 21 mm tunnel with a 9 mm reamer. The final 8 mm was drilled iwith a 4.5 reamer. I then pulled a suture through the femoral tunnel and turned my attention to the tibia. I did examine the femoral tunnel and was satisfied with the posterior wall and its location low and medial at the anatomic footprint. I placed my tibial drill guide in 55 deg and, through a anteromedial inc just lateral to the tibial tubercle placed a k-wire into the notch exiting just medial to the anterior horn insertion of the lateral meniscus. I then over-reamed with a 9mm reamer. I cleaned the tunnels up with a shaver. On the back table I whip-stitched the allograft to fit through a 9 aperture and attached the femoral button to the looped end. I placed the graft on 15lbs of tension for 10 minutes. I then passed the allograft through the tibial tunnel and femoral tunnel and flipped the button. I cycled the knee about 10-15 cycles and then placed a tibial interference screw with the knee in hyper-extension while holding the graft taught. Once I was satisfied that the 10x25 interference screw was buried I examined the ACL and the medial meniscus repair. The repair was stable and the ACL was not impinging and there was a negative pivot shift. I then removed all instrumentation and closed the incisions with nylon. Patient was then placed in sterile dressings and a hinged knee brace. She was then extubated brought recovery room stable condition. There were no known complications.
--- NOTE | 2024-08-01 14:28 | HO.POSTANES ---
Post Anesthesia Evaluation Post Anesthesia Evaluation Date of Service: 08/01/24 Vital Signs: Vital Signs Temp Pulse Resp BP Pulse Ox O2 Del Method O2 Flow Rate 08/01/24 14:00 98.3 F 64 17 140/100 H 100 Room Air 3 08/01/24 13:45 98.3 F 64 17 140/100 H 100 Room Air 08/01/24 13:30 84 17 138/101 H 100 Room Air 08/01/24 13:25 76 17 149/111 H 100 Room Air 08/01/24 13:20 18 08/01/24 13:20 74 17 146/108 H 100 Room Air 08/01/24 13:15 61 17 163/121 H 100 Room Air 08/01/24 13:10 78 17 166/105 H 100 Room Air 08/01/24 13:08 17 08/01/24 13:05 98.3 F 89 17 161/114 H 100 Room Air 08/01/24 13:00 17 08/01/24 13:00 89 17 154/107 H 100 Room Air 08/01/24 12:55 79 17 151/101 H 100 Nasal Cannula 3 08/01/24 12:50 98.3 F 55 18 147/98 H 100 Nasal Cannula 3 08/01/24 08:59 98.2 F 61 16 128/82 97 Room Air Anesthesia: Local, Regional, Monitored, Spinal, Epidural, Nerve Block, General Endotracheal-GETA, General LMA, General and TIVA Mental Status: Awake Pain Control: Satisfactory Nausea/Vomiting: Mild Hydration: Adequate Anesthesia-Related Issues: No Anes. Related Issues Comments: patient can be discharged home
[2024-08-01] MEDS: Ondansetron ODT 4 MG TAB.RAPDIS TRANSLINGU (14:35)
--- NOTE | 2024-08-01 14:36 | PC.NURSE ---
PATIENT REPORTING NAUSEA WHILE IN DISCHARGE AREA. PATIENT RECEIVED ZOFRAN 4 MG IV AT 1110. PATIENT GIVEN ZOFRAN 4 MG SL AT 1330. PATIENT PALE BUT RESPONSIVE.
--- NOTE | 2024-08-01 14:45 | PC.NURSE ---
PATIENT STATES FEELING BETTER AT THIS TIME AFTER TAKING ZOFRAN SL. NO VOMITING TO THIS TIME.
== END 2024-08-01 15:11 | disposition home or self-care (01) ==
LOC: HO.SSS 08:23
PROVIDERS: PCP Physician Assistant; Visit Provider Orthopaedic Surgery
PROC: (CPT 29883; principal; 2024-08-01 10:30)
DX: S83.212A Bucket-handle tear of medial meniscus, current injury, left knee, initial encounter (principal); S83.512A Sprain of anterior cruciate ligament of left knee, initial encounter; M25.562 Pain in left knee; M25.462 Effusion, left knee; M23.52 Chronic instability of knee, left knee; X58.XXXA Exposure to other specified factors, initial encounter; Y93.51 Activity, roller skating (inline) and skateboarding; Y92.9 Unspecified place or not applicable; Y99.9 Unspecified external cause status; G40.909 Epilepsy, unspecified, not intractable, without status epilepticus; R11.15 Cyclical vomiting syndrome unrelated to migraine; A63.0 Anogenital (venereal) warts; Z87.81 Personal history of (healed) traumatic fracture; Z98.890 Other specified postprocedural states; Z87.891 Personal history of nicotine dependence; Z88.5 Allergy status to narcotic agent; Z88.8 Allergy status to other drugs, medicaments and biological substances
CPT/HCPCS: 29883; 29888; C1713; C1762; J0131; J0665; J0690; J1100; J1171; J2003; J2250; J2405; J2704; J3010

== ENCOUNTER → 2024-08-01 08:22 | Outpatient (BNV) | payer OTHER, SELFPAY | PROVIDERS: PCP Physician Assistant; Visit Provider Orthopaedic Surgery | DX: S83.512A Sprain of anterior cruciate ligament of left knee, initial encounter (principal); S83.212A Bucket-handle tear of medial meniscus, current injury, left knee, initial encounter | CPT/HCPCS: 29881; 29888 ==

== ENCOUNTER 2024-08-09 12:10 | Outpatient (REF) | payer OTHER, SELFPAY ==
--- NOTE | ~2024-08-09 | XR_ITS ---
CLINICAL HISTORY: M25.569 - Pain in unspecified knee --- Additional Notes or Special Instructions: AP and lateral only 2 view left knee Comparison: None Findings: Distal femoral and proximal tibial tunnels. No fractures or dislocations. No significant arthritic change or erosions. Small knee joint effusion. No radiopaque foreign body. IMPRESSION: 1. No acute findings. 2. Postsurgical sequelae. This document has been electronically signed by: Bibi Vergara MD on 08/09/2024 17:55:21
--- OUTSIDE RECORDS SUMMARY | 2024-08-13 12:40 | XMS_ITS | Encounter Summary ---
Author Organization [facility] Address [address] [place] [address] Phone Care Team Providers Care Director Of Operations For Therapy Name Role Phone Ayana An MD Primary Care Provider [phone] Encounter Details Date Type Department Care Team (Late st Contact Info) Description 01/27/2017 Conversion Encounter [facility] - [place] [address] [place] [address] Social History Tobacco Use Types Packs/Day Years [...] on filedocumented in this encounter Care Teams Director Of Operations For Therapy Relationship Specialty Start Date End Date Ayana An MD [address] [place] [address] PCP - General 11/05/16 documented as of this encounter
--- OUTSIDE RECORDS SUMMARY | 2024-08-13 12:40 | XMS_ITS | Clinical Summary ---
Author Organization [facility] Address [address] [place] [id number] Phone Care Team Providers Care Painter And Grader Cork Name Role Phone Ayana An MD Primary Care Provider [phone] Immunizations Immunization Administration Dates Next Due DTP [...] / Hypothroid Other Family history of Sudden /[place] under age 55, Family history of Elevated [...] age to complete this topic Care Teams Painter And Grader Cork Relationship Specialty Start Date End Date Ayana An MD [address] [place] [address] SHIRA Moralez [id number] PCP - General 11/05/16
== END 2024-08-09 12:11 | disposition home or self-care (01) ==
LOC: HO.HOSX 12:10
PROVIDERS: Visit Provider Physician Assistant
DX: M25.562 Pain in left knee (principal)
CPT/HCPCS: 73560

== ENCOUNTER 2024-08-09 14:00 | Outpatient (AMB) | payer OTHER, SELFPAY ==
--- NOTE | 2024-08-09 14:18 | MHC.OFFVIS ---
Intake Visit Reasons: PO LT knee ACL recon/poss MMR 08/01/24 NE Intake Note: Fortino is a 39 year old male who presents today for a post operative appointment s/p left knee ACL reconstruction with allograft and Medial meniscus repair 08/01/24 NE. Patient reports he is having mild pain in his knee. Allergies diazepam [From VALIUM] Allergy (Unknown, Verified 07/30/24 14:47) VOMIT hydrocodone [From VICODIN] Allergy (Unknown, Verified 07/30/24 14:47) VOMIT oxycodone [From PERCOCET] Allergy (Unknown, Verified 07/30/24 14:47) VOMIT HPI HPI PO LT knee ACL recon/poss MMR 08/01/24 NE: Details: Mr. Johnson is a 39-year-old male who presents to the office today status post left knee ACL reconstruction with medial meniscal repair performed on 08/01/[address] Yun. Patient presents to the office today in the ACL brace locked in extension and using a cane to assist with ambulation. He reports that the crutches provided to him in the PACU were too big for him and causing him pain. [facility] Medical History Back pain Lumbar vertebral fracture COVID-19 Condyloma acuminatum of penis Cyclic vomiting syndrome Condyloma acuminata Lesion of penis Anxiety Generalized skin lumps Broken leg Epilepsy Surgical History History of surgery on lower extremity History of surgical removal of skin lesion (~05/25/23) History of wisdom tooth extraction History of discectomy Family History Mother Alcoholism Breast cancer Substance use disorder Father Alcoholism Substance use disorder Parkinson disease Paternal Grandfather Lung cancer Maternal Grandmother Breast cancer Social History Housing: Apartment Are you a primary residential care facility manager to a significant other at home: No Do you presently have visiting nurse or other home services: No Alcohol intake: current Alcohol intake frequency: holidays/special occasions only Alcohol type: beer and wine Patient Tobacco Use Status: Former Tobacco user Tobacco use type: Cigarette e-Cigarette/Vaping Use: Former Use Second Hand Smoke Exposure: No Substance Use Type: Marijuana service: No Current occupational status: employed Current occupation: [employer] Current occupational exposures/hazards: No Cognitive needs: No Hearing needs: No Vision needs: Yes Review of Systems Const All systems reviewed & are unremarkable except as noted in HPI and below Physical Exam Const General: cooperative, healthy appearing and no acute distress Resp Effort & Inspection: normal respiratory effort and able to speak in complete sentences Extrem Other: Left knee incision sites are clean dry and intact. No surrounding erythema or drainage. No signs of infection. Sutures intact. Able to dorsiflex and plantar flex. NVI. Assessment & Plan Assessment & Plan (1) Status post reconstruction of anterior cruciate ligament: Code(s): Z98.890 - Other specified postprocedural states Category: Surgical (2) Status post medial meniscal repair: Code(s): Z98.890 - Other specified postprocedural states Category: Surgical Plan Mr. Johnson is a 39-year-old male who presents to the office today status post left knee ACL reconstruction with medial meniscal repair performed on 08/01/[address] Yun. Patient presents to the office today in the ACL brace locked in extension and using a cane to assist with ambulation. He reports that the crutches provided to him in the PACU were too big for him and causing him pain. While the office today, Dr. Yun was available to see the patient with me in a collaborative treatment plan was created. Sutures are removed and Steri-Strips were applied. Brace is to continue to be locked in extension while ambulating. The patient was provided with crutches at are fit appropriately to his height. A physical therapy protocol was provided to the patient in which he will bring to his 1st therapy appointment. Additionally, Dr. Yun had recommended exercises that he can do at home in the meantime. He understands that he should not flex his knee past 90 degrees. Patient demonstrated understanding with these. He will follow up in [address] Yun, sooner if needed. X-rays of the left knee which were obtained while in the office today and were reviewed by me, Monica Tobin PA-C, revealed satisfactory positioning of Endobutton against the lateral femoral condyle. Orders: Orders XR knee LT 2V Today M25.569 - Pain in unspecified knee PT Evaluation and Treatment 05/12/25 S83.219A - Bucket-handle tear of medial meniscus, current injury, unspecified knee, initial encounter, S83.519A - Sprain of anterior cruciate ligament of unspecified knee, initial encounter Coding Level of Care Code Global (13647) Diagnoses Status post reconstruction of anterior cruciate ligament Z98.890 Status post medial meniscal repair Z98.890
--- OUTSIDE RECORDS SUMMARY | 2024-08-09 14:45 | XMS_ITS | Clinical Summary ---
Author Organization [facility] Address [address] [place] [address] Phone Care Team Providers Care Bar Welder Name Role Phone Ayana An MD Primary Care Provider [phone] Immunizations Immunization Administration Dates Next Due DTP [...] / Hypothroid Other Family history of Sudden /[place] under age 55, Family history of Elevated [...] age to complete this topic Care Teams Bar Welder Relationship Specialty Start Date End Date Ayana An MD [address] [place] [address] SHIRA Moralez [id number] PCP - General 11/05/16
--- OUTSIDE RECORDS SUMMARY | 2024-08-09 14:45 | XMS_ITS | Encounter Summary ---
Author Organization [facility] Address [address] [place] [address] Phone Care Team Providers Care Water Main Installer Helper Name Role Phone Ayana An MD Primary Care Provider [phone] Encounter Details Date Type Department Care Team (Late st Contact Info) Description 01/27/2017 Conversion Encounter [facility] [address] [place] [address] Social History Tobacco Use Types Packs/Day Years [...] on filedocumented in this encounter Care Teams Water Main Installer Helper Relationship Specialty Start Date End Date Ayana An MD [address] [place] [address] PCP - General 11/05/16 documented as of this encounter
== END 2024-08-09 15:23 | disposition home or self-care (01) ==
LOC: HO.HOS 14:01
PROVIDERS: PCP Physician Assistant; Visit Provider Physician Assistant
DX: Z98.890 Other specified postprocedural states (principal)
CPT/HCPCS: 99024

== ENCOUNTER → 2024-08-09 14:05 | Outpatient (BNV) | payer OTHER, SELFPAY | PROVIDERS: Visit Provider Radiology Diagnostic Radiology | DX: M25.562 Pain in left knee (principal) | CPT/HCPCS: 73560 ==

== ENCOUNTER 2024-09-06 10:23 | Outpatient (AMB) | payer OTHER, SELFPAY ==
--- NOTE | 2024-09-06 10:29 | A.OFFVIS_ITS ---
Intake Visit Reasons: PO LT knee ACL recon/poss MMR 08/01/24 NE Intake Note: Fortino is a 39 year old male who presents today for a post operative appointment about 6 weeks Left knee ACL reconstruction with allograft and Medial meniscus repair 08/01/24 NE. Patient was given crutches that were too tall for him post operatively so he was weight bearing with a cane. At his first post op he was given crutches that fit appropriately and instructed to wear the locked in extension while ambulating. Allergies diazepam [From VALIUM] Allergy (Unknown, Verified 07/30/24 14:47) VOMIT hydrocodone [From VICODIN] Allergy (Unknown, Verified 07/30/24 14:47) VOMIT oxycodone [From PERCOCET] Allergy (Unknown, Verified 07/30/24 14:47) VOMIT HPI HPI PO LT knee ACL recon/poss MMR 08/01/24 NE: Details: Fortino is a 39 year old male who presents today for a post operative appointment about 6 weeks Left knee ACL reconstruction with allograft and Medial meniscus repair 08/01/24 NE. Patient was given crutches that were too tall for him post operatively so he was weight bearing with a cane. At his first post op he was given crutches that fit appropriately and instructed to wear the locked in extension while ambulating. He has no pain. He does state that his quad is having slight difficulty in returning to normal. [facility] Medical History Back pain Lumbar vertebral fracture COVID-19 Condyloma acuminatum of penis Cyclic vomiting syndrome Condyloma acuminata Lesion of penis Anxiety Generalized skin lumps Broken leg Epilepsy Surgical History History of surgery on lower extremity History of surgical removal of skin lesion (~05/25/23) History of wisdom tooth extraction History of discectomy Family History Mother Alcoholism Breast cancer Substance use disorder Father Alcoholism Substance use disorder Parkinson disease Paternal Grandfather Lung cancer Maternal Grandmother Breast cancer Social History Housing: Apartment Are you a primary team primary care physician to a significant other at home: No Do you presently have visiting nurse or other home services: No Alcohol intake: current Alcohol intake frequency: holidays/special occasions only Alcohol type: beer and wine Patient Tobacco Use Status: Former Tobacco user Tobacco use type: Cigarette e-Cigarette/Vaping Use: Former Use Second Hand Smoke Exposure: No Substance Use Type: Marijuana service: No Current occupational status: employed Current occupation: [employer] Current occupational exposures/hazards: No Cognitive needs: No Hearing needs: No Vision needs: Yes Physical Exam Extrem Other: Well-healed incision. 0-90 pain-free motion. He does have a moderate suprapatellar effusion. His quad strength is poor but no lag in the extension. Office Procedures Joint Inj/Aspir; Non-Pain Clin Joint Injection/Drain Details: Aspirated 45 mL of normal-appearing joint fluid.. Site was prepped using aseptic technique. Patient tolerated the procedure well. Shoulders, Hips, Knees, Knee Large Joint Injection : Left Knee Coding Procedure code (CPT) selection complete Assessment & Plan Assessment & Plan (1) Status post medial meniscal repair: Code(s): Z98.890 - Other specified postprocedural states Category: Surgical Plan: Doing well may unlock his brace from 0-30 while ambulating. Continue PT per protocol. (2) Status post reconstruction of anterior cruciate ligament: Code(s): Z98.890 - Other specified postprocedural states Category: Surgical Plan: May ambulate with brace unlocked 0-30. May discontinue brace if quad function improves follow up 6 weeks Coding Level of Care Code Global (25896) Diagnoses Status post medial meniscal repair Z98.890 Status post reconstruction of anterior cruciate ligament Z98.890 CPT Codes Shoulders, Hips, Knees, - Knee Large Joint Injection 19759: Left Knee ([id number])
== END 2024-09-06 11:03 | disposition home or self-care (01) ==
LOC: HO.HOS 10:23
PROVIDERS: PCP Physician Assistant; Visit Provider Orthopaedic Surgery
DX: Z48.89 Encounter for other specified surgical aftercare (principal); S83.512D Sprain of anterior cruciate ligament of left knee, subsequent encounter
CPT/HCPCS: 20610; 99024

== ENCOUNTER → 2024-09-06 10:23 | Outpatient (BNVA) | payer OTHER, SELFPAY | PROVIDERS: PCP Physician Assistant; Visit Provider Orthopaedic Surgery | DX: Z98.890 Other specified postprocedural states (principal) | CPT/HCPCS: 20610 ==

== ENCOUNTER 2024-10-01 15:56 | Outpatient (AMB) | payer OTHER, SELFPAY ==
--- NOTE | 2024-10-01 15:57 | MHC.PC.OV ---
Vital Signs 10/01/24 15:59 Height 5 ft 10 in Weight 163 lb 2 oz BMI 23.4 BP 140/90 H Blood Pressure Location Lt brachial Position Sitting Pulse 74 Pulse Source Pulse Oximeter Temp Source Temporal Artery Scan Pulse Oximetry (%) 97 Oxygen Delivery Method Room Air Intake Visit Reasons: annual exam Business Management Specialist Required: No Accompanied by: Self / Same As Patient Allergies diazepam (From VALIUM) Allergy (Unknown, Verified 10/01/24 16:22) VOMIT hydrocodone (From VICODIN) Allergy (Unknown, Verified 10/01/24 16:22) VOMIT oxycodone (From PERCOCET) Allergy (Unknown, Verified 10/01/24 16:22) VOMIT Medication List - Last Reconciled 10/01/24 by Fortino Chacko PA-C lamotrigine (Lamictal) 400 mg PO BID ondansetron 8 mg PO BID PRN 7 days ondansetron 8 mg PO BID PRN 7 days oxycodone-acetaminophen 5-325 mg 1 tab PO Q4-6H PRN 7 days valacyclovir (Valtrex) 1,000 mg PO BID PRN Tobacco use date assessed: 10/01/24 Dental Screening Dental Screen Date: 10/01/24 HPI annual exam HPI Details Patient is a 39-year-old male here today for routine annual physical He has a past medical history significant for generalized anxiety disorder, left knee meniscal tear, epilepsy to which he takes lamotrigine 400 mg b.i.d.. .. Generalized anxiety disorder: Patient continues to suffer with anxiety mostly. He reports personal issues with his family that has been elevating his anxiety as of late. He also reports his than lower is not allowing him to have his cat present in his apartment which serves as a emotional support animal. Needs a letter to justify his Cat living with him and his apartment. Will try to set him up with mental health therapy .. Epilepsy: Neck does report having breakthrough seizures as of late that he attributes to increased stress in his life. He is reestablishing care with a neurologist at [facility] in near future. He is on high dose lamotrigine which has worked for him for many years. PLAN: Will check his Lamictal level at next lab draw. .. Vaccine: Up-to-date with flu, COVID, needs up-to-date tetanus vaccine [facility] Medical History (Updated 10/01/24 @ 16:25 by Fortino Chacko PA-C) Back pain Lumbar vertebral fracture COVID-19 Condyloma acuminatum of penis Cyclic vomiting syndrome Condyloma acuminata Lesion of penis Anxiety Generalized skin lumps Broken leg Epilepsy Surgical History History of surgery on lower extremity History of surgical removal of skin lesion (~05/25/23) History of wisdom tooth extraction History of discectomy Family History Mother Alcoholism Breast cancer Substance use disorder Father Alcoholism Substance use disorder Parkinson disease Paternal Grandfather Lung cancer Maternal Grandmother Breast cancer Social History Housing: Apartment Are you a primary home health care provider to a significant other at home: No Do you presently have visiting nurse or other home services: No Alcohol intake: current Alcohol intake frequency: holidays/special occasions only Alcohol type: beer and wine Patient Tobacco Use Status: Former Tobacco user Tobacco use type: Cigarette e-Cigarette/Vaping Use: Former Use Second Hand Smoke Exposure: No Substance Use Type: Marijuana service: No Current occupational status: employed Current occupation: [employer] Current occupational exposures/hazards: No Cognitive needs: No Hearing needs: No Vision needs: Yes Questionnaire Thrive Questionnaire Date Thrive assessed: 10/01/24 YOLA-7 AMB Questionnaire YOLA-7 Date YOLA - 7 assessed: 10/01/24 Feeling nervous, anxious, or on edge: 1 = Several days Not being able to stop or control worryin = Several days Worrying too much about different things: 1 = Several days Trouble relaxin = More than half the days Being so restless that it is hard to sit still: 2 = More than half the days Becoming easily annoyed or irritable: 2 = More than half the days Feeling afraid as if something awful might happen: 3 = Nearly every day Total YOLA-7 score (0-4 normal; 5-9 mild; 10-14 moderate; 15-21 severe): 12 Source: Developed by Drs. Oscar Funes, Sylvie Hollingsworth, David Rivera and colleagues, with an educational jaelyn from [employer]. YOLA-7 Assessment Billing YOLA-7 Assessment Tool: YOLA-7 Assessment 72494 Review of Systems Const Denies body aches, Denies chills, Denies excessive sweating, Denies fatigue, Denies fever(s) and Denies headache(s) Eyes Denies blurry vision ENT Denies dysphagia, Denies vertigo, Denies dizziness, Denies headache(s), Denies hearing loss and Denies tinnitus Card Denies chest pain, Denies chest pain with activity, Denies syncope, Denies irregular heart rhythm and Denies dyspnea Resp Denies chest congestion, Denies cough, Denies hemoptysis, Denies dyspnea and Denies wheezing GI Denies abdominal pain, Denies melena, Denies hematochezia, Denies coffee ground emesis, Denies dysphagia, Denies diarrhea, Denies nausea and Denies vomiting Denies difficulty urinating, Denies dysuria, Denies urinary frequency, Denies urinary hesitancy and Denies urinary urgency Musc Denies arthralgias, Denies limited range of motion, Denies muscle cramps and Denies muscle weakness Skin/Breast Denies rash and Denies skin ulcer Neuro Denies Abnormal speech present, Denies confusion, Denies vertigo, Denies dizziness, Denies syncope, Denies headache(s), Denies memory loss and Denies seizure-like activity Psych Denies anxiety, Denies confusion, Denies depression, Denies memory loss, Denies panic attacks and Denies paranoia Endo Denies excessive sweating, Denies fatigue, Denies flushing, Denies polydipsia and Denies polyuria Aller/Immun Denies wheezing Physical exam (Primary Care) Vital Signs: Last Vital Signs Pulse 74 10/01/24 15:59 BP 140/90 H 10/01/24 15:59 Pulse Ox 97 10/01/24 15:59 Oxygen Delivery Method Room Air 10/01/24 15:59 BMI result Body Mass Index 23.4 Tobacco/Smoking Status: Tobacco use Status Tobacco use date assessed 10/01/24 10/01/24 16:06 Patient Tobacco Use Status Former Tobacco user 10/01/24 16:06 Tobacco use type Cigarette 10/01/24 16:06 e-Cigarette/Vaping Use Former Use 10/01/24 16:06 Thrive Assessment: Date of Thrive Assessment Date Thrive assessed 10/01/24 10/01/24 16:06 Const General: cooperative, comfortable, no acute distress, alert and awake; No confusion Orientation/consciousness: oriented to person, oriented to place, patient oriented x3 and No confusion HENMT Head: Yes normocephalic Ears: external ears normal and TM's normal bilaterally Face and sinus: No sinus tenderness Mouth: Normal oral and palatal mucosa present and tongue normal Teeth and gingiva: dentition normal and gingiva normal Throat: Yes posterior oropharynx normal, Yes tonsils normal and Yes uvula midline Eyes Conjunctivae: conjunctivae normal Sclerae: sclerae normal Pupils: Equal, round and reactive pupils present EOM: EOMs intact bilaterally Direct Ophthalmoscopy: No no photophobia Neck Neck: Yes no lymphadenopathy, No tender and Yes no JVD Thyroid: Thyroid normal Carotids: no bruits Chest Chest palpation & inspection: no tenderness Resp Effort & Inspection: normal respiratory effort, no audible wheezes, not labored and no stridor Auscultation: no crackles, no rales, no rhonchi and no wheezes Cardio Jugular venous distension: no JVD Rate: regular rate, not bradycardic and not tachycardic Rhythm: regular rhythm Bruits: no carotid bruits Peripheral pulses: Peripheral pulses 2+ throughout GI Inspection: Yes normal to inspection, No abdominal wall ecchymosis and No visible herniation Palpation (GI): Soft to palpation, nontender, no guarding, not rigid and No hepatosplenomegaly present Auscultation: normoactive bowel sounds General: Yes no CVA tenderness Back/Spine/Pelvis Back: no CVA tenderness and No back tenderness Cervical Spine: cervical ROM normal Thoracic/Lumbar Spine: thoracic and lumbar spine normal to inspection, straight leg raise negative bilaterally, No thoraco-lumbar ROM limited and No lumbar spinal tenderness Skin Lesions: no lesions Rashes: no rashes Wounds: no wounds Neuro General: oriented to person, oriented to place, patient oriented x3, CN's II-XI intact bilaterally and No confusion Cranial nerves: Yes Equal, round and reactive pupils present and Yes Normal accommodation reflex present Cognition (Neuro): normal cognition Speech: No Abnormal speech present Gait exam (Neuro): Normal gait present Motor exam (neuro): 5/5 motor strength present throughout Extrem Right upper extremity: full ROM; no cyanosis Left upper extremity: full ROM; no cyanosis Right lower extremity: no edema Left lower extremity: no edema Psych Appearance: grossly normal Mental Status: mental status grossly normal Affect: normal affect Attitude: cooperative Thought process: Normal thought process present Coding Level of Care Code Est Pt Prev Care 18-39y(64538) Diagnoses Annual physical exam Z00.00 Nonintractable epilepsy without status epilepticus, unspecified epilepsy type G40.909 Epilepsy type: unspecified Intractability: not intractable Status epilepticus: without status epilepticus Screening for diabetes mellitus (DM) Z13.1 Anxiety F41.9 Additional Codes YOLA-7 Assessment Billing - YOLA-7 Assessment Tool: YOLA-7 Assessment 21809 ([id number]) Assessment & Plan Assessment & Plan (1) Annual physical exam: Code(s): Z00.00 - Encounter for general adult medical examination without abnormal findings Category: Medical Plan: As per HPI (2) Epilepsy: Comment: last seizure was 5 years ago. Follows with [facility] Neurology Code(s): G40.909 - Epilepsy, unspecified, not intractable, without status epilepticus Category: Medical Qualifiers: Epilepsy type: unspecified Intractability: not intractable Status epilepticus: without status epilepticus Qualified Code(s): G40.909 - Epilepsy, unspecified, not intractable, without status epilepticus Plan: Patient does report having some breakthrough seizures which she relates to being more stress. Already on high dose of Lamictal. He has upcoming appointment with a neurologist to get reestablished in discuss further treatments for a seizure disorder. (3) Screening for diabetes mellitus (DM): Code(s): Z13.1 - Encounter for screening for diabetes mellitus Category: Medical Plan: As per HPI (4) Anxiety: Code(s): F41.9 - Anxiety disorder, unspecified Category: Medical Plan: Patient's YOLA-7 score positive for anxiety which has been existing condition for him.. Patient has a history of generalized anxiety disorder and has had a lot of anxiety as of late due to personal issues in his family. He is asking for letter medical necessity to have his Cat living with him in his apartment serving as a emotional support animal. Patient is interested in establishing care with a mental health therapist to help him with cognitive behavioral therapy Orders: Orders Lamotrigine Lamictal 10/01/24 G40.909 - Epilepsy, unspecified, not intractable, without status epilepticus Referrals Counseling Referral F41.9 - Anxiety disorder, unspecified Medications: Refilled ondansetron 8 mg PO BID PRN 14 tabs 0RF nausea and vomiting 7 days Discontinued oxycodone-acetaminophen 5-325 mg Partial Fill upon patient request. Discontinued Reason: Doctor's Order 1 tab PO Q4-6H 7 days PRN 42 tabs 0RF pain
[2024-10-01 15:59] VITALS: BP 140/90; PULSE 74; O2SAT 97; BMI 23.4
--- OUTSIDE RECORDS SUMMARY | 2024-10-01 15:59 | XMS_ITS | Encounter Summary ---
Author Organization [facility] Address [address] [place] [address] Phone Care Team Providers Care Slip Laster Name Role Phone Ayana An MD Primary Care Provider [phone] Encounter Details Date Type Department Care Team (Late st Contact Info) Description 01/27/2017 Conversion Encounter [facility] [place] [address] [place] [address] Social History Tobacco Use Types Packs/Day Years [...] on filedocumented in this encounter Care Teams Slip Laster Relationship Specialty Start Date End Date Ayana An MD [address] [place] [address] PCP - General 11/05/16 documented as of this encounter
== END 2024-10-01 16:37 | disposition home or self-care (01) ==
LOC: HO.HMCH 15:57
PROVIDERS: PCP Physician Assistant; Visit Provider Physician Assistant
DX: Z00.00 Encounter for general adult medical examination without abnormal findings (principal); G40.909 Epilepsy, unspecified, not intractable, without status epilepticus; Z13.1 Encounter for screening for diabetes mellitus; F41.9 Anxiety disorder, unspecified

== ENCOUNTER → 2024-10-01 15:56 | Outpatient (BNVA) | payer OTHER, SELFPAY | PROVIDERS: PCP Physician Assistant; Visit Provider Physician Assistant | DX: Z00.00 Encounter for general adult medical examination without abnormal findings (principal); F41.1 Generalized anxiety disorder; G40.909 Epilepsy, unspecified, not intractable, without status epilepticus | CPT/HCPCS: 96127 ==

== ENCOUNTER 2024-10-18 10:55 | Outpatient (RCR) | payer OTHER, SELFPAY ==
--- NOTE | 2024-08-28 13:54 | MHC.PT.EP ---
[facility] [place] Office [place] Office [place] Office [address] Maritza Felton [address] [phone] F: [phone] F: [phone] F: [phone] F: [phone] Physical Therapy Plan of Care Date of Evaluation: 08/28/24 Date of Surgery: 08/01/24 Diagnosis: ACL RECONSTRUCTION W ALLOGRAFT AND MEDIAL MENISCAL REPAIR (NE) Assessment: 39 YO MALE REF TO PT S/O Lt ACL ALLOGRAFT RECONSTRUCTION W MEDIAL MENISCAL REPAIR W DR PINEDO ON AUGUST 01, 2024. HE WILL BE 4 WKS PO ON 08/29/24 AND PRESENTED FOR HIS PT EVAL W/O HIS Lt KNEE BRACE AND WITH A CANE VS CRUTCHES. PER DR PINEDO, Lt KNEE FLEX CURRENTLY RESTRICTED TO 90*. HE HAS A H/O EPILEPSY, MOST RECENT SEIZURE APPROX 3 WKS AGO. THE Pt HAS DECR POSTURE/ H/O LB SURGERY AND PAIN, ALTERED GAIT, PRORIOCEPTIVE/ STRENGTH/ FUNCT MOB DEFICITS. 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 EDUCATED THE Pt RE POST-OP ACL/ MENISCAL REPAIR PROTOCOL AND CONT USE OF Lt KNEE BRACE. Frequency and Duration: The patient will be seen 1 x WK x 8 WKS, Pt REQ DT CO-PAY Short Term Goals: *INITIATE PO ACL PROTOCOL EX * PROTECT GRAFT AND MENISCAL REPAIR Lt KNEE *Pt OBTAIN Lt KNEE FULL EXTEN AND GRAD KNEE FLEX PER PROTOCOL *IMPROVED GAIT MECH W Lt KNEE BRACE *WNL Lt PATELLAR MOB Fdc Goals: *NORMALIZED GAIT MECH ON LEVEL AND STAIRS *INDEP HEP AND SELF-SX MGMT TECHN-> FULL ROM Lt KNEE *GRAD RETURN TO REG ADLs/ FUNCT MOB PER POST-OP PROTOCOL *IMPROVED LEFI, AT EVAL Treatment Plan: Modalities to reduce pain, spasms and effusion. Manual therapy to restore motion and function. Therapeutic exercise to improve strength and flexibility. Neuromuscular re-education for posture and balance. Therapeutic activities to return to functional activities of daily living. Electronically signed by: DEMIAN DURHAM, PT Please sign and return to therapist. Thank you for your referral.
--- NOTE | 2024-10-18 12:39 | MHC.PT.DC ---
[facility] [place] Office [place] Office [place] Office [address] Maritza Felton [address] [phone] F: [phone] F: [phone] F: [phone] F: [phone] Physical Therapy Discharge Report Diagnosis: ACL RECONSTRUCTION W ALLOGRAFT AND MEDIAL MENISCAL REPAIR (NE) Date of Surgery: 08/01/24 Date of Evaluation: 08/28/24 Date of Discharge: 10/18/24 Treatments to Date: 6 Cancellations to Date: 2 No Shows to Date: Discharge Status: Improved Function Independent with HEP Patient Elected to Stop Discharge Summary: OSIEL HAS PROGRESSED SINCE ;AST APPT W ANKLE AND Lt KNEE STABILITY- HE DOES HAVE RESIDUAL WEAKNESS IN Lt LE AND WE HAVE DISCUSSED TRANSITIONING HIS PT CARE TO A CLINIC THAT ACCOMODATES HIS WORK SCHED TO CONT ADDRESSING HIS Lt ACL POST OP NEEDS. HE DISPLAYED Lt SLS x 30 SEC W INCR EFFORT AT Lt ANKLE, IMPROVED ECCENTRIC CONTROL Lt QUAD, HE HAS MET HIS ROM GOALS ( HE HAS 0* EXTEN, HOWEVER, W/O STRETCHING HE PRESENTS -5*). OSIEL DENIES ANY Lt KNEE PAIN, HE HAS SOME INTERMITTENT DISTAL QUAD SORENESS W INCR ACTIVITY. HIS LEFI AT D/C IS 59/80 AND AT EVAL, 30/80. Electronically signed by: DEMIAN DURHAM,PT Please sign and return to therapist. Thank you for your referral.
== END 2024-10-18 12:27 | disposition home or self-care (01) ==
LOC: HO.PT 10:55
PROVIDERS: PCP Physician Assistant; Visit Provider Physician Assistant
DX: S83.21 Bucket-handle tear of medial meniscus, current injury (principal); S83.519D Sprain of anterior cruciate ligament of unspecified knee, subsequent encounter; Z98.890 Other specified postprocedural states
CPT/HCPCS: 97110; 97112; 97140; 97162; 97530; 97535

== ENCOUNTER 2024-10-22 09:43 | Outpatient (AMB) | payer OTHER, SELFPAY ==
[2024-10-22 09:47] VITALS: BMI 23.4
--- NOTE | 2024-10-22 09:47 | MHC.OFFVIS ---
Vital Signs 10/22/24 09:47 Height 5 ft 10 in Weight 163 lb BMI 23.4 Intake Visit Reasons: PO LT knee ACL recon/poss MMR 08/01/24 NE Intake Note: Fortino is a 39 year old male who presents today for a post operative appointment s/p Left knee ACL reconstruction with allograft and Medial meniscus repair 08/01/24. Patient reports he is doing well, however he reports some weakness. He wears a brace when heavy lifting. Allergies diazepam (From VALIUM) Allergy (Unknown, Verified 10/22/24 09:50) VOMIT hydrocodone (From VICODIN) Allergy (Unknown, Verified 10/22/24 09:50) VOMIT oxycodone (From PERCOCET) Allergy (Unknown, Verified 10/22/24 09:50) VOMIT HPI HPI PO LT knee ACL recon/poss MMR 08/01/24 NE: Details: 3 mo post op doing well with no complaints. He has been doing PT. he is going is gym on his own. He does not know if that is left leg musculature of tears diminished compared to his right. [facility] Medical History (Updated 10/01/24 @ 16:25 by Fortino Chacko PA-C) Back pain Lumbar vertebral fracture COVID-19 Condyloma acuminatum of penis Cyclic vomiting syndrome Condyloma acuminata Lesion of penis Anxiety Generalized skin lumps Broken leg Epilepsy Surgical History History of surgery on lower extremity History of surgical removal of skin lesion (~05/25/23) History of wisdom tooth extraction History of discectomy Family History Mother Alcoholism Breast cancer Substance use disorder Father Alcoholism Substance use disorder Parkinson disease Paternal Grandfather Lung cancer Maternal Grandmother Breast cancer Social History Housing: Apartment Are you a primary acute care clinical nurse specialist to a significant other at home: No Do you presently have visiting nurse or other home services: No Alcohol intake: current Alcohol intake frequency: holidays/special occasions only Alcohol type: beer and wine Patient Tobacco Use Status: Former Tobacco user Tobacco use type: Cigarette e-Cigarette/Vaping Use: Former Use Second Hand Smoke Exposure: No Substance Use Type: Marijuana service: No Current occupational status: employed Current occupation: [employer] Current occupational exposures/hazards: No Cognitive needs: No Hearing needs: No Vision needs: Yes Physical Exam Vital Signs: BMI result Body Mass Index 23.4 Extrem Other: Incisions are clean dry intact is no effusion. He has full range of motion left knee. He has a stable Keisha's with firm endpoint. Assessment & Plan Assessment & Plan (1) Status post reconstruction of anterior cruciate ligament: Code(s): Z98.890 - Other specified postprocedural states Category: Surgical Plan: 39-year-old status post ACL reconstruction doing well. I reviewed our goals with the next 3 months which include strengthening and avoidance of running, jumping, cutting activities. He is going to the gym and reviewed exercises for strengthening. I gave him a note that it is okay for him to return to work but I can not palpate any large structures . 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 Stepping twisting. He will see me back in 3 months. Coding Level of Care Code Global (68160) Diagnoses Status post reconstruction of anterior cruciate ligament Z98.890
--- OUTSIDE RECORDS SUMMARY | 2024-10-22 10:39 | XMS_ITS | Encounter Summary ---
Author Organization [facility] Address [address] [place] [address] Phone Care Team Providers Care Driver Supervisor Name Role Phone Ayana An MD Primary Care Provider [phone] Encounter Details Date Type Department Care Team (Late st Contact Info) Description 01/27/2017 Conversion Encounter [facility] - [place] [address] [place] [address] Social History Tobacco Use Types Packs/Day Years [...] on filedocumented in this encounter Care Teams Driver Supervisor Relationship Specialty Start Date End Date Ayana An MD [address] [place] [address] PCP - General 11/05/16 documented as of this encounter
== END 2024-10-22 10:05 | disposition home or self-care (01) ==
LOC: HO.HOS 09:44
PROVIDERS: PCP Physician Assistant; Visit Provider Orthopaedic Surgery
DX: Z98.890 Other specified postprocedural states (principal)
CPT/HCPCS: 99024

== ENCOUNTER 2024-12-08 07:18 | Inpatient (IN) | payer SELFPAY ==
[2024-12-08] VITALS (9 sets, daily range): BP systolic 95–180; BP diastolic 53–99; PULSE 61–117; RESP 14–19; TEMP 36.5–37.2; O2SAT 94–99; BMI 23.4; BMI 22.8
[2024-12-08 07:44] LABS: MANUAL DIFF FLAG NO
--- NOTE | 2024-12-08 07:45 | PC.NURSE ---
Pt awake, alert, confused regarding events and location; parents report grand mal seizure activity for 15 minutes with apneic episodes; parents report pt was vomiting all day yesterday; vss; afebrile on arrival; seizure pads put in place; @ 20 L AC from EMS patent; labs drawn/pending; awaiting provider; family at bedside
[2024-12-08 07:46] LABS: Hematocrit 45.2 % (42.0-52.0); Hemoglobin 16.1 g/dl (14.0-18.0); Imm Gran Abs Auto 0.08 X10*3/uL (0.00-0.03); Imm Gran Pct Auto 0.6 % (0.0-0.4); Lymphocytes Absolute Auto 1.1 X10*3/uL (1.2-4.9); Mean Corpuscular HGB Conc 35.6 g/dl (31.0-36.0); Mean Corpuscular Hemoglobin 32.7 pg (27.0-33.0); Mean Corpuscular Volume 91.9 fL (80.0-98.0); NRBC Abs Auto 0.000 X10*3/uL (0.0-0.012); NRBC Pct Auto 0.0 /100WBC (0.0-0.2); Platelet Count 229 X10*3/uL (160-400); Red Blood Count 4.92 X10*6/uL (4.60-5.80); White Blood Count 12.4 X10*3/uL (4.8-10.8)
--- OUTSIDE RECORDS SUMMARY | 2024-12-08 08:03 | XMS_ITS | Encounter Summary ---
Author Organization [facility] Address [address] [place] [address] Phone Care Team Providers Care Gill Net Stringer Name Role Phone Ayana An MD Primary Care Provider [phone] Encounter Details Date Type Department Care Team (Late st Contact Info) Description 01/27/2017 Conversion Encounter [facility] [place] [address] [place] [address] Social History Tobacco Use Types Packs/Day Years [...] on filedocumented in this encounter Care Teams Gill Net Stringer Relationship Specialty Start Date End Date Ayana An MD [address] [place] [address] PCP - General 11/05/16 documented as of this encounter
--- OUTSIDE RECORDS SUMMARY | 2024-12-08 08:03 | XMS_ITS | Clinical Summary ---
Author Organization [facility] Address [address] [place] [id number] Phone Care Team Providers Care Enterprise Engineer Name Role Phone Ayana An MD Primary Care Provider [phone] Immunizations Immunization Administration Dates Next Due DTP [...] / Hypothroid Other Family history of Sudden /VA under age 55, Family history of Elevated [...] of 2 - 13+ 2-dose series) 08/04/2000 HPV Vaccines (1 - 3-dose SCDM series) 08/04/2014 DTaP,Tdap,and Td Vaccines (7 - Td or Tdap) 10/24/2017 10/25/2007, 02/26/1999, 10/16/1992, Additional history exists Influenza Vaccines (#1) 2024 COVID-19 Vaccine ( season) 2024 HIB Vaccines Completed 02/12/1989 IPV Vaccines Completed [...] age to complete this topic Care Teams Enterprise Engineer Relationship Specialty Start Date End Date Ayana An MD [address] [place] [address] SHIRA Moralez [address] PCP - General 11/05/16
[2024-12-08 08:20] LABS: Alanine Aminotransferase 32 U/L (0-40); Albumin Level 4.9 g/dL (3.5-5.0); Alkaline Phosphatase 113 U/L (39-117); Anion Gap 20 (12-20); Aspartate Amino Transferase 25 U/L (5-37); Blood Urea Nitrogen 16 mg/dL (9-16); Calcium 9.6 mg/dL (8.4-10.2); Carbon Dioxide 20 mmol/L (22-29); Chloride 104 mmol/L (96-108); Creatinine Clr Calc Pharmacy 99.4; Estimated Glomerular Filt Rate > 60; Magnesium 2.3 mg/dL (1.6-2.6); Potassium 3.3 mmol/L (3.3-5.1); Sodium 141 mmol/L (135-145); Total Protein 7.3 g/dL (6.5-8.0)
--- NOTE | 2024-12-08 08:26 | ED_ITS ---
HPI - General Adult General Chief complaint: Seizure Stated complaint: AMS AFTER SEIZURE Time Seen by Provider: 12/08/24 08:26 History of Present Illness ED Provider: Anette HPI narrative: The patient is a 39-year-old male with a history of a seizure disorder. He is on lamotrigine according to his family. He gets his healthcare at the [facility]. His mother says he is currently uninsured. Apparently he took his regular medications yesterday morning and then went to work. Not long after leaving for work he returned home because of complaints of nausea, vomiting, and diarrhea. These symptoms persisted throughout the evening and he was unable to take his evening medications yesterday. This morning he had a seizure in his family called 911. Therefore his last dose of lamotrigine was approximately 24 hours prior to arrival. No other history is available. According to the patient's mother the patient is on lamotrigine 400 mg twice a day. She says that he has not seen a doctor recently and she further says that he does not have insurance. He only recently returned to this area. It is not clear how he has been getting his lamotrigine but his mother believes he has been taking it. Related Data Home Medications ?Medication ?Instructions ?Recorded ?Confirmed lamotrigine 100 mg tablet 400 mg PO BID 08/01/2412/08 (Lamictal) Previous Rx's ?Medication ?Instructions ?Recorded ondansetron 8 mg disintegrating 8 mg PO BID PRN nausea and 10/01/24 tablet vomiting 7 days #14 tabs Allergies Allergy/AdvReac Type Severity Reaction Status Date / Time diazepam (From VALIUM) Allergy Unknown VOMIT Verified 12/08/24 07:34 hydrocodone (From VICODIN) Allergy Unknown VOMIT Verified 12/08/24 07:34 oxycodone (From PERCOCET) Allergy Unknown VOMIT Verified 12/08/24 07:34 Review of Systems 2 Review of Systems: Yes all other systems are reviewed and are negative and Unobtainable due to mental status PMFSH Past Medical History Medical History (Updated 12/08/24 @ 12:35 by Eugene Cheema MD) Back pain Lumbar vertebral fracture COVID-19 Condyloma acuminatum of penis Cyclic vomiting syndrome Condyloma acuminata Lesion of penis Anxiety Generalized skin lumps Broken leg Epilepsy Surgical History History of surgery on lower extremity History of surgical removal of skin lesion (~05/25/23) History of wisdom tooth extraction History of discectomy Family History Family History Mother Alcoholism Breast cancer Substance use disorder Father Alcoholism Substance use disorder Parkinson disease Paternal Grandfather Lung cancer Maternal Grandmother Breast cancer Social History Social History Housing: Apartment Are you a primary aged or disabled care worker to a significant other at home: No Do you presently have visiting nurse or other home services: No Unable to assess alcohol history related to: Unknown Alcohol intake: current Alcohol intake frequency: holidays/special occasions only Alcohol type: beer and wine Patient Tobacco Use Status: Former Tobacco user Tobacco use type: Cigarette e-Cigarette/Vaping Use: Former Use Second Hand Smoke Exposure: No Use of substances other than those prescribed or required for medical reasons: No Substance Use Type: Marijuana Advance Directives: No Advance Directives Information Provided: No service: No Current occupational status: employed Current occupation: [employer] Current occupational exposures/hazards: No Cognitive needs: No Hearing needs: No Vision needs: Yes Physical Exam ED Vital Signs: Vital Signs - 24 hr 12/08/24 07:27 12/08/24 09:08 12/08/24 10:19 Temperature 98.0 F 98.7 F Pulse Rate 75 117 H 95 Respiratory Rate 14 19 16 Blood Pressure 95/53 L 118/69 111/67 Pulse Oximetry 96 94 94 Oxygen Delivery Method Room Air Room Air Room Air 12/08/24 10:49 12/08/24 12:18 Temperature 97.7 F Pulse Rate 95 87 Respiratory Rate 14 18 Blood Pressure 122/75 126/81 Pulse Oximetry 96 98 Oxygen Delivery Method Room Air Room Air BMI result Body Mass Index 23.4 Const Other: When I first encountered the patient he was having a tonic-clonic seizure. HENMT Other: Face is symmetrical. The patient has an injury to the right side of his tongue. He seems to have bit his tongue. Eyes Other: Pupils are round equal, conjunctivae are clear, extraocular movements intact General: appearance normal, both eyes and all related structures Neck Neck: Yes normal visual inspection, Yes full ROM and Yes no meningeal signs Resp Effort & Inspection: normal respiratory effort Auscultation: clear to auscultation bilaterally Cardio Rate: regular rate Rhythm: regular rhythm Heart sounds: S1 normal heart sound present and S2 normal heart sound present GI Other: Initially the patient's abdomen was difficult to examined. Later, he when he was awake, his abdomen was soft and nontender. Skin Other: The skin is dry and unremarkable General skin exam: no rashes or lesions noted Neuro Other: Initially the patient was having a very impressive grand mal seizure. He was given IV diazepam and the seizure seemed to stop but then he seemed to have a very agitated postictal state in which he was not awake or alert but extremely restless and agitated on the stretcher. This continued despite additional IV diazepam. Ultimately he was given IV ketamine with cessation of his agitation. Later, when he was awake after the ketamine had worn off he was awake and alert although he was drowsy. Pupils are round equal, extraocular movements were intact, his face was symmetrical, and he moved his extremities symmetrically. At that point he seemed drowsy but otherwise neurologically intact General: no meningeal signs Extrem Other: There is no calf swelling or tenderness. No asymmetry. No peripheral edema. Medications Administered Generic Name Dose Route Start Last Admin Trade Name Freq PRN Reason Stop Dose Admin Enoxaparin Sodium 40 mg 12/08/24 15:00 12/08/24 15:26 Enoxaparin Sodium 40 Mg/0.4 Ml Syringe SUBCUT 40 mg Q24H SAMARA Administration Discontinued Medications Generic Name Dose Route Start Last Admin Trade Name Freq PRN Reason Stop Dose Admin Diazepam 10 mg 12/08/24 08:26 12/08/24 08:33 Diazepam 10 Mg/2 Ml Cartridge IVPUSH 12/08/24 08:27 10 mg STAT STA Administration Diazepam 10 mg 12/08/24 08:41 12/08/24 08:40 Diazepam 10 Mg/2 Ml Cartridge IVPUSH 12/08/24 08:42 10 mg STAT STA Administration Levetiracetam 2,000 mg/ Sodium 120 mls @ 480 mls/hr 12/08/24 08:29 12/08/24 09:36 Chloride IV 12/08/24 08:43 Infused ONCE ONE Infusion Sodium Chloride 1,000 mls @ 999 mls/hr 12/08/24 09:30 12/08/24 10:50 Ns IV 12/08/24 10:30 Infused .Q1H1M SAMARA Infusion Lactated Ringer's 1,000 mls @ 999 mls/hr 12/08/24 12:00 12/08/24 13:31 Lr IV 12/08/24 13:00 Infused .Q1H1M SAMARA Infusion Ampicillin Sodium/Sulbactam 100 mls @ 200 mls/hr 12/08/24 12:30 12/08/24 13:32 Sodium 3 gm/ Sodium Chloride IV 12/08/24 12:59 Infused ONCE ONE Infusion Ketamine HCl 200 mg 12/08/24 08:50 12/08/24 08:55 Ketamine Hcl/Ns 50 Mg/5 Ml Syringe IVPUSH 12/08/24 08:51 200 mg ONCE ONE Administration Lamotrigine 400 mg 12/08/24 11:48 12/08/24 12:20 Lamotrigine 100 Mg Tablet PO 12/08/24 11:49 400 mg ONCE ONE Administration Medical Decision Making Medical Decision Making [facility] Narrative: The patient is a 39-year-old male with a history of a seizure disorder on lamotrigine 400 mg b.i.d.. Yesterday he had a lot of nausea and vomiting and did not take his evening lamotrigine. This morning he had a seizure at home before he had had chance to take his morning lamotrigine. He arrived by ambulance. When he first arrived he was not seizing but before he was seen by a provider he started to seize in the hospital stretcher here. It was at that point that I saw him. He was given 10 mg of IV diazepam on account of his seizure. This was repeated. The seizure stopped but he then had extreme agitation that I thought was an agitated postictal state rather than ongoing seizure activity. He required 6 people to hold him down. Given the degree of his agitation he was given 200 mg of IV ketamine after which he was much calmer. He was also given 2 g of IV levetiracetam. He was given IV fluids. He was observed. I contacted the ICU team because I thought he might require admission to the ICU but eventually the patient woke up following the ketamine and was sufficiently awake and alert that the ICU did not seem necessary. At that point we were able to establish his lamotrigine dose and he was given 400 mg of oral lamotrigine as well. Given the degree of significant agitation associated with the seizures I felt that hospitalization was reasonable. Additionally the patient has been in his tongue and he was given prophylactic dose of IV antibiotics with 3 g of Unasyn. He was admitted to the hospitalist service. Lab Data 12/08/24 07:40 12/08/24 07:40 Labs: Lab Results 12/08/24 12/08/24 12/08/24 Range/Units 07:40 09:16 09:36 WBC 12.4 H (4.8-10.8) X10*3/uL RBC 4.92 (4.60-5.80) X10*6/uL Hgb 16.1 (14.0-18.0) g/dl Hct 45.2 (42.0-52.0) % MCV 91.9 (80.0-98.0) fL MCH 32.7 (27.0-33.0) pg MCHC 35.6 (31.0-36.0) g/dl RDW 12.9 (11.0-16.0) % Plt Count 229 D (160-400) X10*3/uL MPV 9.8 (9.4-12.4) fL Immature Gran % (Auto) 0.6 H (0.0-0.4) % Neut % (Auto) 82.7 H (45-73) % Lymph % (Auto) 8.8 L (20-40) % [place] % (Auto) 7.7 (2-11) % Eos % (Auto) 0.1 (0-4) % Baso % (Auto) 0.1 (0-2) % Lymph # (Auto) 1.1 L (1.2-4.9) X10*3/uL [place] # (Auto) 1.0 (0.1-1.2) X10*3/uL Eos # (Auto) 0.0 (0.0-0.4) X10*3/uL Baso # (Auto) 0.0 (0.0-0.2) X10*3/uL Abs Immat Gran (auto) 0.08 H (0.00-0.03) X10*3/uL Absolute Neuts (auto) 10.3 H (2.0-8.3) x10*3/uL Absolute Nucleated RBC 0.000 (0.0-0.012) X10*3/uL Nucleated RBC % (auto) 0.0 (0.0-0.2) /100WBC Sodium 141 (135-145) mmol/L Potassium 3.3 (3.3-5.1) mmol/L Chloride 104 (96-108) mmol/L Carbon Dioxide 20 L (22-29) mmol/L Anion Gap 20 (12-20) BUN 16 (9-16) mg/dL Creatinine 1.05 (0.5-1.4) mg/dL Estim Creat Clear Calc 99.4 Estimated GFR > 60 POC Glucose 158 H (60-115) mg/dL Random Glucose 143 H (60-115) mg/dL Calcium 9.6 (8.4-10.2) mg/dL Magnesium 2.3 (1.6-2.6) mg/dL Total Bilirubin 0.4 (0.0-1.0) mg/dL AST 25 (5-37) U/L ALT 32 (0-40) U/L Alkaline Phosphatase 113 (39-117) U/L Total Protein 7.3 (6.5-8.0) g/dL Albumin 4.9 (3.5-5.0) g/dL Urine Color Yellow Urine Appearance Clear Urine pH 5.0 (5.0-9.0) Ur Specific [place] 1.015 (1.005-1.025) Urine Protein 100 (2+) H (Neg-Trace) mg/dL Urine Glucose (UA) Negative (Negative) mg/dL Urine Ketones Trace (Negative) mg/dL Urine Blood Moderate (2+) H (Negative) Urine Nitrite Negative (Negative) Ur Leukocyte Esterase Negative (Negative) Urine RBC 3-5 H (0-2) /HPF Urine WBC 0-5 (0-5) /HPF Ur Squamous Epith Cells 0-2 (0-2) /HPF Urine Bacteria None Seen (None Seen) Hyaline Casts 0-2 (0-2) /LPF Urine Opiates Screen Not Detected (Not Detect) Ur Buprenorphine Scrn Not Detected (Not Detect) ng/mL Ur Oxycodone Screen Not Detected (Not Detect) ng/mL Urine Methadone Screen Not Detected (Not Detect) ng/mL Urine Fentanyl Screen Not Detected (Not Detect) Ur Barbiturates Screen Not Detected (Not Detect) Ur Phencyclidine Scrn Not Detected (Not Detect) Ur Amphetamines Screen Not Detected (Not Detect) U Benzodiazepines Scrn POSITIVE H (Not Detect) Urine Cocaine Screen Not Detected (Not Detect) U Marijuana (THC) Screen POSITIVE H (Not Detect) Ethyl Alcohol < 10 mg/dL Critical Care Time Critical Care Time Critical Care Time: Yes Total Critical Care Time: 35 Attestation: The patient was critically ill with a high probability of imminent or life- threatening deterioration. ?I spent greater than 30 minutes of discontinuous time evaluating the patient, delivering critical care at the bedside, discussing evaluating data with consultants. ?Critical care time does not include time spent performing separately billable procedures or teaching. ?Time spent performing critical care with 35 minutes. Discharge Plan Discharge Clinical Impression: Seizure, Bite wound of own tongue Patient Disposition: Admitted As Inpatient
[2024-12-08] MEDS: diazePAM 10 MG/2 ML CARTRIDGE IVPUSH ×2 (08:33→08:40)
[2024-12-08] MEDS: Ketamine HCl/NS 50 MG/5 ML SYRINGE 200 MG IVPUSH (08:55)
--- NOTE | 2024-12-08 09:08 | PC.NURSE ---
Pt moved to ED 4 from ED 9 after reports of sz, new #18 placed in RUE, VS obtained. Pt with eyes closed and even/unlabored resp. Changed into hospital attire. Placed on monitor.
[2024-12-08 09:49] LABS: Appearance Urine Clear; Glucose Urine UA Negative (Negative); PH 5.0 (5.0-9.0); Specific Gravity - Urine 1.015 (1.005-1.025); UMIC TRIGGER UACC YES
[2024-12-08 10:03] LABS: Cannabinoid Screen Urine POSITIVE (Not Detect)
--- NOTE | 2024-12-08 10:21 | PC.NURSE ---
Pt continues resting in bed with even resp, eyes closed. No apparent s/s of distress. Family ay bedside.
[2024-12-08 10:37] LABS: Glucose, Whole Blood 158 mg/dL (60-115)
--- NOTE | 2024-12-08 11:31 | PC.NURSE ---
Pt awake and alert, responding to questions appropriately. Reports feeling foggy and not sure of the last time he took anti-sz medications. Pt able to stick tounge out and small laceration noted to right side of tongue with minimal swelling. MD notified of my mental status.
[2024-12-08] MEDS: Lactated Ringers 1,000 ML 999 ML IV (12:23)
--- NOTE | 2024-12-08 13:49 | P.HPHOSP_ITS ---
History of Present Illness Date of Service: 12/08/24 Chief Complaint: Seizure 39-year-old man presented to the ER after a breakthrough seizure. According to the patient and his mother yesterday he had not been feeling well and he missed his doses of his lamotrigine. He reports that he takes his lamotrigine everyday as prescribed and has not missed doses other than yesterday. He denied any recent travel, sick contacts, denied chest pain, fever, chills, diarrhea. Denies any history of drug use other than marijuana and occasional alcohol. In the ER, he had another witnessed seizure and had a difficult postictal state and was medicated multiple time with valium. He will be admitted for further management of breakthrough seizure. Review of Systems 2 Review of Systems: Denies any recent fever chills or decrease in appetite respiratory denies any shortness of breath or cough cardiovascular denied chest pain gastrointestinal denies any dysphagia abdominal pain nausea vomiting or diarrhea genitourinary denies any dysuria frequency or hematuria musculoskeletal denies any joint pain or swelling neuropsych denies any weakness or seizures all other systems reviewed are negative [facility] Medical History (Updated 12/08/24 @ 12:35 by Eugene Cheema MD) Back pain Lumbar vertebral fracture COVID-19 Condyloma acuminatum of penis Cyclic vomiting syndrome Condyloma acuminata Lesion of penis Anxiety Generalized skin lumps Broken leg Epilepsy Family History Mother Alcoholism Breast cancer Substance use disorder Father Alcoholism Substance use disorder Parkinson disease Paternal Grandfather Lung cancer Maternal Grandmother Breast cancer Surgical History History of surgery on lower extremity History of surgical removal of skin lesion (~05/25/23) History of wisdom tooth extraction History of discectomy Social History Housing: Apartment Are you a primary long term acute care registered nurse to a significant other at home: No Do you presently have visiting nurse or other home services: No Unable to assess alcohol history related to: Unknown Alcohol intake: current Alcohol intake frequency: holidays/special occasions only Alcohol type: beer and wine Patient Tobacco Use Status: Former Tobacco user Tobacco use type: Cigarette e-Cigarette/Vaping Use: Former Use Second Hand Smoke Exposure: No Use of substances other than those prescribed or required for medical reasons: No Substance Use Type: Marijuana Advance Directives: No Advance Directives Information Provided: No service: No Current occupational status: employed Current occupation: [employer] Current occupational exposures/hazards: No Cognitive needs: No Hearing needs: No Vision needs: Yes Meds Allergies Allergy/AdvReac Type Severity Reaction Status Date / Time diazepam (From VALIUM) Allergy Unknown VOMIT Verified 12/08/24 07:34 hydrocodone (From VICODIN) Allergy Unknown VOMIT Verified 12/08/24 07:34 oxycodone (From PERCOCET) Allergy Unknown VOMIT Verified 12/08/24 07:34 Home Medications ?Medication ?Instructions ?Recorded ?Confirmed ?Last Taken ?Type valacyclovir 1 gram tablet 1,000 mg PO BID PRN Outbrea k 06/27/24 10/01/24 Unknown History (Valtrex) lamotrigine 100 mg tablet 400 mg PO BID 08/01/2410/0108/01/24 History (Lamictal) Physical Exam 2 Vital Signs and Narrative: Vital Signs: Last Vital Signs Temp 97.7 F 12/08/24 10:49 Pulse 87 12/08/24 12:18 Resp 18 12/08/24 12:18 BP 126/81 12/08/24 12:18 Pulse Ox 98 12/08/24 12:18 O2 Del Method Room Air 12/08/24 12:18 BMI result Body Mass Index 23.4 Appearing in no acute distress head is normocephalic atraumatic eyes pupils are PERRLA sclera is anicteric mouth throat mucous membranes are intact and moist neck is supple no lymphadenopathy, no JVD noted lung sounds are clear to auscultation heart regular rate rhythm, clear S1, S2 positive bowel sounds, abdomen is soft, nontender neuro patient is alert x3, no focal deficits Results Labs 12/08/24 07:40 12/08/24 07:40 Labs: Laboratory Results - last 24 hr 12/08/24 12/08/24 12/08/24 07:40 09:16 09:36 MCV 91.9 MCH 32.7 MCHC 35.6 RDW 12.9 Plt Count 229 D MPV 9.8 Immature Gran % (Auto) 0.6 H Neut % (Auto) 82.7 H Lymph % (Auto) 8.8 L [place] % (Auto) 7.7 Eos % (Auto) 0.1 Baso % (Auto) 0.1 Lymph # (Auto) 1.1 L [place] # (Auto) 1.0 Eos # (Auto) 0.0 Baso # (Auto) 0.0 Abs Immat Gran (auto) 0.08 H Absolute Neuts (auto) 10.3 H Absolute Nucleated RBC 0.000 Nucleated RBC % (auto) 0.0 Anion Gap 20 Estim Creat Clear Calc 99.4 Estimated GFR > 60 POC Glucose 158 H Random Glucose 143 H Calcium 9.6 Magnesium 2.3 Total Bilirubin 0.4 AST 25 ALT 32 Alkaline Phosphatase 113 Total Protein 7.3 Albumin 4.9 Urine Color Yellow Urine Appearance Clear Urine pH 5.0 Ur Specific [place] 1.015 Urine Protein 100 (2+) H Urine Glucose (UA) Negative Urine Ketones Trace Urine Blood Moderate (2+) H Urine Nitrite Negative Ur Leukocyte Esterase Negative Urine RBC 3-5 H Urine WBC 0-5 Ur Squamous Epith Cells 0-2 Urine Bacteria None Seen Hyaline Casts 0-2 Urine Opiates Screen Not Detected Ur Buprenorphine Scrn Not Detected Ur Oxycodone Screen Not Detected Urine Methadone Screen Not Detected Urine Fentanyl Screen Not Detected Ur Barbiturates Screen Not Detected Ur Phencyclidine Scrn Not Detected Ur Amphetamines Screen Not Detected U Benzodiazepines Scrn POSITIVE H Urine Cocaine Screen Not Detected U Marijuana (THC) Screen POSITIVE H Ethyl Alcohol < 10 Assessment and Plan (1) Seizure: Status: Acute Plan 39 year old man admitted with breakthrough seizure. Patient denied missing any medication but missed doses yesterday because he felt unwell Breakthrough seizure head ct neg for acute abnormality Seizure precautions Continue Lamotrigine Neurology consultation, patient may need medication adjustment Leukocytosis mild no signs of infection maybe from seizure monitor Hx of HPV, genital warts continue valtrex DVT prophylaxis with Lovenox Full code Quality Stroke Does the patient have a stroke diagnosis?: No VTE Prior VTE?: No VTE Risk Level:: Medical - moderate - high VTE Device Contraindication: Treatment Not Indicated VTE Drug Contraindication: N/A - Med Ordered
--- NOTE | 2024-12-08 14:47 | PHA.MEDREC ---
Addendum entered by Terence Brenner, PharmD 12/08/24 15:41: med rec checked by [facility] Original Note: Pharmacy Consult ? Medication Reconciliation Pharmacy has completed the medication reconciliation. Confirmed medication list with patient. Does not take valacyclovir anymore.
--- NOTE | 2024-12-08 19:16 | PC.NURSE ---
this rn assumed care of pt, pt reports intermittent nausea, medicated per mar, respirations even and unlabored.
--- NOTE | 2024-12-08 21:31 | PC.NURSE ---
pt medicated per mar, tolerated well whole with water. pt medicated per mar for generalized body pain
[2024-12-09] VITALS (7 sets, daily range): BP systolic 104–138; BP diastolic 57–91; PULSE 53–68; RESP 16–20; TEMP 36.3–36.8; O2SAT 96–100
[2024-12-09] MEDS: 0.9 % Sodium Chloride Flush 3 ML SYRINGE IVFLUSH ×3 (01:11→15:27)
[2024-12-09 07:10] LABS: MANUAL DIFF FLAG NO
[2024-12-09 07:14] LABS: Hematocrit 40.1 % (42.0-52.0); Hemoglobin 13.9 g/dl (14.0-18.0); Imm Gran Abs Auto 0.04 X10*3/uL (0.00-0.03); Imm Gran Pct Auto 0.4 % (0.0-0.4); Lymphocytes Absolute Auto 1.5 X10*3/uL (1.2-4.9); Mean Corpuscular HGB Conc 34.7 g/dl (31.0-36.0); Mean Corpuscular Hemoglobin 32.7 pg (27.0-33.0); Mean Corpuscular Volume 94.4 fL (80.0-98.0); NRBC Abs Auto 0.000 X10*3/uL (0.0-0.012); NRBC Pct Auto 0.0 /100WBC (0.0-0.2); Platelet Count 158 X10*3/uL (160-400); Red Blood Count 4.25 X10*6/uL (4.60-5.80); White Blood Count 9.4 X10*3/uL (4.8-10.8)
--- NOTE | 2024-12-09 07:21 | P.PNIM_ITS ---
Subjective Subjective Date of Service: 12/09/24 Interval History: Patient reports severe nausea, requiring multiple doses of Zofran, we will switch to prochlorperazine Patient not willing to try higher doses of antiseizure meds Reports he has had many side effects from prior meds-I have requested the patient to list the side effects that he has had as we would like to treat him with higher doses Patient reports being in between physicians, has not seen a neurologist in a while Review of Systems Review of Systems: Yes all other systems are reviewed and are negative Physical Exam 2 Exam: Exam: General: AOx3, appears acutely distress secondary to nausea and vomiting-he has allergy listed to Valium as vomiting which she has received in the ED Resp: CTA bilaterally CVS: S1, S2, RRR GI: +BS, NT, no distention Vital Signs: Vital Signs: Last Vital Signs Temp 98.2 F 12/09/24 04:00 Pulse 68 12/09/24 04:00 Resp 20 12/09/24 04:00 BP 104/67 12/09/24 04:00 Pulse Ox 98 12/09/24 04:00 O2 Del Method Room Air 12/09/24 04:00 BMI result Body Mass Index 22.8 Objective Data Active Medications Acetaminophen (Acetaminophen 325 Mg Tablet) 650 mg PO Q6H PRN PRN Reason: Pain, Mild 1-3,fever,headache Calcium Carbonate (Calcium Carbonate 750 Mg Tab.Chew) 750 mg PO Q4H PRN PRN Reason: Heartburn Enoxaparin Sodium (Enoxaparin Sodium 40 Mg/0.4 Ml Syringe) 40 mg SUBCUT Q24H [facility] Last Admin: 12/08/24 15:26 Dose: 40 mg Documented By: DANELLE Folic Acid (Folic Acid 1 Mg Tablet) 1 mg PO BEDTIME [facility] Last Admin: 12/08/24 21:27 Dose: 1 mg Documented By: ADELIA Thiamine HCl 100 mg/ Sodium (Chloride) 101 mls @ 202 mls/hr IV DAILY [facility] Lamotrigine (Lamotrigine 100 Mg Tablet) 400 mg PO BID [facility] Last Admin: 12/08/24 21:27 Dose: 400 mg Documented By: ADELIA Magnesium Hydroxide (Milk Of Magnesia 30 Ml Oral.Susp) 30 ml PO DAILY PRN PRN Reason: Constipation Melatonin (Melatonin 3 Mg Tablet) 6 mg PO BEDTIME PRN PRN Reason: Insomnia Last Admin: 12/08/24 21:27 Dose: 6 mg Documented By: ADELIA Morphine Sulfate (Morphine Sulfate 4 Mg/Ml Cartridge) 2 mg IVPUSH Q4H PRN; Protocol PRN Reason: Pain, Severe (Pain Scale 7-10) Last Admin: 12/08/24 21:27 Dose: 2 mg Documented By: ADELIA Multivitamins/Vitamin C (Multivitamin Tablet) 1 tab PO BEDTIME [facility] Last Admin: 12/08/24 21:27 Dose: 1 tab Documented By: ADELIA Nicotine Polacrilex (Nicotine Polacrilex 2 Mg Gum) 2 mg BUCCAL Q2H PRN PRN Reason: Nicotine Cravings Ondansetron HCl (Ondansetron Hcl 4 Mg/2 Ml Vial) 4 mg IVPUSH Q8H PRN PRN Reason: Nausea and Vomiting Last Admin: 12/08/24 21:27 Dose: 4 mg Documented By: ADELIA Oxycodone HCl (Oxycodone Hcl Immed Release 5 Mg Tablet) 5 mg PO Q6H PRN PRN Reason: Pain, Moderate(Pain Scale 4-6) Prochlorperazine Edisylate (Prochlorperazine Edisylate 10 Mg/2 Ml Vial) 5 mg IVPUSH Q6H PRN PRN Reason: Nausea and Vomiting Last Admin: 12/08/24 18:58 Dose: 5 mg Documented By: DANELLE Sodium Chloride (0.9 % Sodium Chloride Flush 3 Ml Syringe) 3 ml IVFSH [facility] Last Admin: 12/09/24 01:11 Dose: 3 ml Documented By: JAVIER Labs 12/09/24 06:44 12/09/24 06:44 Labs: Laboratory Results - last 24 hr 12/08/24 12/08/24 12/08/24 07:40 09:16 09:36 MCV 91.9 MCH 32.7 MCHC 35.6 RDW 12.9 Plt Count 229 D MPV 9.8 Immature Gran % (Auto) 0.6 H Neut % (Auto) 82.7 H Lymph % (Auto) 8.8 L [place] % (Auto) 7.7 Eos % (Auto) 0.1 Baso % (Auto) 0.1 Lymph # (Auto) 1.1 L [place] # (Auto) 1.0 Eos # (Auto) 0.0 Baso # (Auto) 0.0 Abs Immat Gran (auto) 0.08 H Absolute Neuts (auto) 10.3 H Absolute Nucleated RBC 0.000 Nucleated RBC % (auto) 0.0 Anion Gap 20 Estim Creat Clear Calc 99.4 Estimated GFR > 60 POC Glucose 158 H Random Glucose 143 H Calcium 9.6 Magnesium 2.3 Total Bilirubin 0.4 AST 25 ALT 32 Alkaline Phosphatase 113 Total Protein 7.3 Albumin 4.9 Urine Color Yellow Urine Appearance Clear Urine pH 5.0 Ur Specific [place] 1.015 Urine Protein 100 (2+) H Urine Glucose (UA) Negative Urine Ketones Trace Urine Blood Moderate (2+) H Urine Nitrite Negative Ur Leukocyte Esterase Negative Urine RBC 3-5 H Urine WBC 0-5 Ur Squamous Epith Cells 0-2 Urine Bacteria None Seen Hyaline Casts 0-2 Urine Opiates Screen Not Detected Ur Buprenorphine Scrn Not Detected Ur Oxycodone Screen Not Detected Urine Methadone Screen Not Detected Urine Fentanyl Screen Not Detected Ur Barbiturates Screen Not Detected Ur Phencyclidine Scrn Not Detected Ur Amphetamines Screen Not Detected U Benzodiazepines Scrn POSITIVE H Urine Cocaine Screen Not Detected U Marijuana (THC) Screen POSITIVE H Ethyl Alcohol < 10 12/09/24 06:44 MCV MCH MCHC RDW Plt Count MPV Immature Gran % (Auto) Neut % (Auto) Lymph % (Auto) [place] % (Auto) Eos % (Auto) Baso % (Auto) Lymph # (Auto) [place] # (Auto) Eos # (Auto) Baso # (Auto) Abs Immat Gran (auto) Absolute Neuts (auto) Absolute Nucleated RBC Nucleated RBC % (auto) Anion Gap Estim Creat Clear Calc Estimated GFR POC Glucose Random Glucose Calcium Magnesium Cancelled Total Bilirubin AST ALT Alkaline Phosphatase Total Protein Albumin Urine Color Urine Appearance Urine pH Ur Specific [place] Urine Protein Urine Glucose (UA) Urine Ketones Urine Blood Urine Nitrite Ur Leukocyte Esterase Urine RBC Urine WBC Ur Squamous Epith Cells Urine Bacteria Hyaline Casts Urine Opiates Screen Ur Buprenorphine Scrn Ur Oxycodone Screen Urine Methadone Screen Urine Fentanyl Screen Ur Barbiturates Screen Ur Phencyclidine Scrn Ur Amphetamines Screen U Benzodiazepines Scrn Urine Cocaine Screen U Marijuana (THC) Screen Ethyl Alcohol Assessment and Plan (1) Seizure: Status: Acute Plan Patient with a known history of epilepsy on lamotrigine 400 mg p.o. b.i.d., YOLA, who likely has not seen a neurologist in a while appears to have at least 1 witnessed and 1 unwitnessed home seizure, requiring adjustment in antiseizure medications. Neurology consulted, EEG requested. Acute/worsening seizures with likely breakthrough seizures despite being on lamotrigine Needs medication adjustment-patient not willing to try EEG Neurology consult Seizure precautions When offered alternative antiseizure medications-patient reports he is on a high dose of Lamictal and is not willing to try a higher level Patient reports that he is looking for a new neurologist, new changes in his insurance in between jobs Generalized anxiety disorder Would benefit with an SSRI given established YOLA-need to have more discussion as the patient is reluctant to initiating medications DVT prophylaxis with Lovenox This note is constructed using voice recognition software. While every effort has been made to ensure accuracy, scale expert errors may have been included. Quality Stroke Does the patient have a stroke diagnosis?: No VTE Prior VTE?: No VTE Risk Level:: Medical - moderate - high VTE Device Contraindication: Treatment Not Indicated VTE Drug Contraindication: N/A - Med Ordered
[2024-12-09 08:01] LABS: Alanine Aminotransferase 22 U/L (0-40); Albumin Level 4.0 g/dL (3.5-5.0); Alkaline Phosphatase 96 U/L (39-117); Anion Gap 13 (12-20); Aspartate Amino Transferase 31 U/L (5-37); Blood Urea Nitrogen 17 mg/dL (9-16); Calcium 8.9 mg/dL (8.4-10.2); Carbon Dioxide 26 mmol/L (22-29); Chloride 105 mmol/L (96-108); Creatinine Clr Calc Pharmacy 78.7; Estimated Glomerular Filt Rate > 60; Magnesium 2.2 mg/dL (1.6-2.6); Potassium 3.3 mmol/L (3.3-5.1); Sodium 141 mmol/L (135-145); Total Protein 6.2 g/dL (6.5-8.0)
[2024-12-09] MEDS: Thiamine HCL 100 MG in 0.9 % Sodium Chloride 100 ML 202 MG IV (08:37)
--- NOTE | 2024-12-09 09:25 | ECG_ITS ---
Test Reason : HR 40-50 Blood Pressure : */* mmHG Vent. Rate : 58 BPM Atrial Rate : 58 BPM P-R Int : 116 ms QRS Dur : 94 ms QT Int : 444 ms P-R-T Axes : 116 112 105 degrees QTcB Int : 435 ms Suspect limb lead reversal, interpretation assumes no reversal Sinus bradycardia with marked sinus arrhythmia Minimal voltage criteria for LVH, may be normal variant ( Sokolow-Porras ) Lateral infarct , age undetermined Abnormal ECG When compared with ECG of 08-May-2022 13:48, QRS axis Shifted right Lateral infarct is now Present Referred By: Juanita Snyder Electronically Signed By: HENRY SWANSON
--- NOTE | 2024-12-09 15:30 | MHC.CM.PN ---
PT REPORTS HE LIVES WITH HIS PARENTS AND IS INDEPENDENT WITH CARE HE HAS NO DME AND NO SERVICES PCP AT [facility] COPY OF HCP REQUESTED PT DOES NOT HAVE INSURANCE AT THIS TIME, [place] [facility] [facility] [place] DCP: HOME VIA PRIVATE TRANSPORT
--- NOTE | 2024-12-10 | EEG_ITS ---
Reason: breakthrough seizure Medications: acetaminophen, calcium, enoxaparin, folic acid, thiamine, lamotrigine, magnesium, melatonin, morphine, vitamin c, nicotine, ondansetron, oxycodone, prochlorperazine edisylate, sodium chloride History: seizure disorder, anxiety - Patient admitted to hospital after a witnessed seizure and a possible unwitnessed seizure at home. Patient reports having severe nausea and vomiting before episode. Food Sampler Comments Photic Stimulation: completed Hyperventilation: omitted Behavioral state: pleasant, cooperative State of consciousness: awake and sleep Skull defect: none Sedation: no Handedness: right Duration of study: 32 mins 57 secs Description: This is a 16 channel EEG with an EKG lead. Patient is reported awake and sleep during the tracing. Background EEG rhythm is 16-20 hertz 5-50 microvolt posteriorly lower amplitude fast anteriorly. Photic stimulation does not produce any significant abnormality. Hyperventilation is not performed. Cardiac lead does not reveal any significant abnormality. Some lead and muscle artifacts are noted. No sharp wave spikes or paroxysmal tendency noted. Impression: Unremarkable EEG. JOSELUIS
[2024-12-10 03:24] VITALS: BP 100/55; PULSE 758; RESP 18; TEMP 36.6; O2SAT 98
[2024-12-10 06:51] LABS: MANUAL DIFF FLAG NO
[2024-12-10 06:55] VITALS: BP 102/59; PULSE 67; RESP 18; TEMP 36.8; O2SAT 98
[2024-12-10 06:59] LABS: Hematocrit 41.5 % (42.0-52.0); Hemoglobin 14.3 g/dl (14.0-18.0); Imm Gran Abs Auto 0.02 X10*3/uL (0.00-0.03); Imm Gran Pct Auto 0.3 % (0.0-0.4); Lymphocytes Absolute Auto 1.8 X10*3/uL (1.2-4.9); Mean Corpuscular HGB Conc 34.5 g/dl (31.0-36.0); Mean Corpuscular Hemoglobin 32.2 pg (27.0-33.0); Mean Corpuscular Volume 93.5 fL (80.0-98.0); NRBC Abs Auto 0.000 X10*3/uL (0.0-0.012); NRBC Pct Auto 0.0 /100WBC (0.0-0.2); Platelet Count 171 X10*3/uL (160-400); Red Blood Count 4.44 X10*6/uL (4.60-5.80); White Blood Count 7.7 X10*3/uL (4.8-10.8)
[2024-12-10 07:21] LABS: Alanine Aminotransferase 22 U/L (0-40); Albumin Level 4.1 g/dL (3.5-5.0); Alkaline Phosphatase 93 U/L (39-117); Anion Gap 11 (12-20); Aspartate Amino Transferase 27 U/L (5-37); Blood Urea Nitrogen 14 mg/dL (9-16); Calcium 9.0 mg/dL (8.4-10.2); Carbon Dioxide 29 mmol/L (22-29); Chloride 105 mmol/L (96-108); Creatinine Clr Calc Pharmacy 101.1; Estimated Glomerular Filt Rate > 60; Potassium 3.2 mmol/L (3.3-5.1); Sodium 142 mmol/L (135-145); Total Protein 6.3 g/dL (6.5-8.0)
[2024-12-10] MEDS: Thiamine HCL 100 MG in 0.9 % Sodium Chloride 100 ML 202 MG IV (08:30)
[2024-12-10] MEDS: Potassium Chloride ER 20 MEQ TAB.ER.PRT 40 MEQ PO (08:40)
[2024-12-10] MEDS: 0.9 % Sodium Chloride Flush 3 ML SYRINGE IVFLUSH (10:40)
[2024-12-10 11:12] VITALS: BP 113/78; PULSE 75; RESP 16; TEMP 36.4; O2SAT 97
--- NOTE | 2024-12-10 14:41 | PM.NEUROCN ---
History of Present Illness Data of Consult Service Date: 12/10/24 Primary Care Provider: [facility] Reason for consult: Seizure disorder 39 years old man who provided his own history stating that he has been having seizures for many years but also he was using heavy amount of marijuana every day. He said that with heavy use of marijuana, he was getting vomiting syndrome resulting in loss of a seizure medicine in that would trigger seizure. He reported that his seizures typically started with a feeling of doom and something sinking in his chest to his belly and then he losing consciousness and shaking. He was not seeing a neurologist but had seen 1 few years ago. Apparently he has been taking lamotrigine and twice a day. Review of Systems Review of Systems: Excessive use of marijuana and nausea and vomiting PMFSH Past Medical History Medical History Back pain Lumbar vertebral fracture COVID-19 Condyloma acuminatum of penis Cyclic vomiting syndrome Condyloma acuminata Lesion of penis Anxiety Generalized skin lumps Broken leg Epilepsy Family History Family History Mother Alcoholism Breast cancer Substance use disorder Father Alcoholism Substance use disorder Parkinson disease Paternal Grandfather Lung cancer Maternal Grandmother Breast cancer Surgical History Surgical History History of surgery on lower extremity History of surgical removal of skin lesion (~05/25/23) History of wisdom tooth extraction History of discectomy Social History Social History Household Members: Family Housing: House Are you a primary complex care nurse practitioner to a significant other at home: No Do you presently have visiting nurse or other home services: No Unable to assess alcohol history related to: Unknown Alcohol intake: current Alcohol intake frequency: holidays/special occasions only Alcohol type: beer and wine Patient Tobacco Use Status: Former Tobacco user Tobacco use type: Cigarette e-Cigarette/Vaping Use: Former Use Second Hand Smoke Exposure: No Substance Use Type: Marijuana service: No Current occupational status: employed Current occupation: [employer] Current occupational exposures/hazards: No Cognitive needs: No Hearing needs: No Vision needs: Yes Meds Allergies Allergy/AdvReac Type Severity Reaction Status Date / Time diazepam (From VALIUM) Allergy Unknown VOMIT Verified 12/08/24 07:34 hydrocodone (From VICODIN) Allergy Unknown VOMIT Verified 12/08/24 07:34 oxycodone (From PERCOCET) Allergy Unknown VOMIT Verified 12/08/24 07:34 Active Medications: Current Medications Acetaminophen (Acetaminophen 325 Mg Tablet) 650 mg PO Q6H PRN PRN Reason: Pain, Mild 1-3,fever,headache Last Admin: 12/09/24 13:38 Dose: 650 mg Calcium Carbonate (Calcium Carbonate 750 Mg Tab.Chew) 750 mg PO Q4H PRN PRN Reason: Heartburn Enoxaparin Sodium (Enoxaparin Sodium 40 Mg/0.4 Ml Syringe) 40 mg SUBCUT Q24H [facility] Last Admin: 12/09/24 15:25 Dose: 40 mg Folic Acid (Folic Acid 1 Mg Tablet) 1 mg PO BEDTIME [facility] Last Admin: 12/09/24 20:24 Dose: 1 mg Thiamine HCl 100 mg/ Sodium (Chloride) 101 mls @ 202 mls/hr IV DAILY [facility] Last Infusion: 12/10/24 09:00 Dose: Infused Lamotrigine (Lamotrigine 100 Mg Tablet) 400 mg PO BID [facility] Last Admin: 12/10/24 08:33 Dose: 400 mg Magnesium Hydroxide (Milk Of Magnesia 30 Ml Oral.Susp) 30 ml PO DAILY PRN PRN Reason: Constipation Melatonin (Melatonin 3 Mg Tablet) 6 mg PO BEDTIME PRN PRN Reason: Insomnia Last Admin: 12/08/24 21:27 Dose: 6 mg Morphine Sulfate (Morphine Sulfate 4 Mg/Ml Cartridge) 2 mg IVPUSH Q4H PRN; Protocol PRN Reason: Pain, Severe (Pain Scale 7-10) Last Admin: 12/09/24 23:45 Dose: 2 mg Multivitamins/Vitamin C (Multivitamin Tablet) 1 tab PO BEDTIME [facility] Last Admin: 12/09/24 20:24 Dose: 1 tab Nicotine Polacrilex (Nicotine Polacrilex 2 Mg Gum) 2 mg BUCCAL Q2H PRN PRN Reason: Nicotine Cravings Oxycodone HCl (Oxycodone Hcl Immed Release 5 Mg Tablet) 5 mg PO Q6H PRN PRN Reason: Pain, Moderate(Pain Scale 4-6) Prochlorperazine Edisylate (Prochlorperazine Edisylate 10 Mg/2 Ml Vial) 5 mg IVPUSH Q6H PRN PRN Reason: Nausea and Vomiting Last Admin: 12/09/24 23:01 Dose: 5 mg Sodium Chloride (0.9 % Sodium Chloride Flush 3 Ml Syringe) 3 ml IVFLUSH QSHIFT [facility] Last Admin: 12/10/24 10:40 Dose: 3 ml Home Medications ?Medication ?Instructions ?Recorded ?Confirmed ?Last Taken ?Type lamotrigine 100 mg tablet 400 mg PO BID 08/01/24 12/08/24 08/01/24 History (Lamictal) Physical Exam Vital Signs: Vital Signs: Last Vital Signs Temp 97.6 F 12/10/24 11:12 Pulse 75 12/10/24 11:12 Resp 16 12/10/24 11:12 BP 113/78 12/10/24 11:12 Pulse Ox 97 12/10/24 11:12 O2 Del Method Room Air 12/10/24 11:12 BMI result Body Mass Index 22.8 Neuro: Other: He is alert and awake with normal spontaneity of speech fluency comprehension and affect. Face is symmetrical. Visual hill are full. There was no local or focal weakness. Plantars are flexor. Deep tendon reflexes are good 2+. Speech is normal. Results Labs 12/10/24 06:08 12/10/24 06:08 Labs: Short CBC 12/10/24 Range/Units 06:08 WBC 7.7 (4.8-10.8) X10*3/uL Hgb 14.3 (14.0-18.0) g/dl Hct 41.5 L (42.0-52.0) % Plt Count 171 (160-400) X10*3/uL BMP 12/10/24 06:08 Sodium 142 Potassium 3.2 L Chloride 105 Carbon Dioxide 29 BUN 14 Creatinine 1.02 Calcium 9.0 Liver Function 12/10/24 Range/Units 06:08 Total Bilirubin 0.6 (0.0-1.0) mg/dL AST 27 (5-37) U/L ALT 22 (0-40) U/L Alkaline Phosphatase 93 (39-117) U/L Albumin 4.1 (3.5-5.0) g/dL Head CT screening was positive for marijuana Assessment and Plan (1) Epilepsy: Qualifiers: Epilepsy type: unspecified Intractability: not intractable Status epilepticus: without status epilepticus Qualified Code(s): G40.909 - Epilepsy, unspecified, not intractable, without status epilepticus Status: Acute Probably epilepsy comprising of complex partial secondarily generalized seizures with heavy use marijuana. He said that as long as he was taking his medicine he was fine. My recommendation is to continue taking lamotrigine and follow with a is prescribing physicians on regular basis. He was informed about potential complications of heavy use of marijuana resulting in systemic and neurological problems. He was strongly advised to curtail this activity. EEG is also done and the report would be dictated separately. Procedures Date of Service Date of Service: 12/10/24
--- NOTE | 2024-12-10 15:04 | P.DS_ITS ---
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 b.i.d.. EEG and neurology consulted. This is likely in the setting of marijuana and patient advised about risks of marijuana use. Hence his home medication has not been changed. Patient advised to follow up with PCP and Neurology outpatient. Hemodynamically stable, family updated Marijuana use Advised against use, patient receptive Generalized anxiety disorder Advised the patient to curtail marijuana use and follow-up with PCP Time spent discussing smoking cessation with patient: more than 10 minutes Status at Discharge Functional status at discharge: independent ambulation Overall status at discharge: patient is progressing back to baseline Time Attestation Discharge Coordination Time (in mins): 35 Quality: Safe Use of Opioids Does Pt have an Active Cancer Diagnosis on the Problem List?: No Quality: Stroke Does the patient have a stroke diagnosis?: No Physical Exam Vital Signs: Vital Signs: Last Vital Signs Temp 97.6 F 12/10/24 11:12 Pulse 75 12/10/24 11:12 Resp 16 12/10/24 11:12 BP 113/78 12/10/24 11:12 Pulse Ox 97 12/10/24 11:12 O2 Del Method Room Air 12/10/24 11:12 BMI result Body Mass Index 22.8 DS: Data Data Completed and Pending Labs on day of discharge: Laboratory Results - last 24 hr 12/10/24 06:08 WBC 7.7 RBC 4.44 L Hgb 14.3 Hct 41.5 L MCV 93.5 MCH 32.2 MCHC 34.5 RDW 12.5 Plt Count 171 MPV 9.9 Immature Gran % (Auto) 0.3 Neut % (Auto) 65.0 Lymph % (Auto) 23.9 [place] % (Auto) 10.1 Eos % (Auto) 0.4 Baso % (Auto) 0.3 Lymph # (Auto) 1.8 [place] # (Auto) 0.8 Eos # (Auto) 0.0 Baso # (Auto) 0.0 Abs Immat Gran (auto) 0.02 Absolute Neuts (auto) 5.0 Absolute Nucleated RBC 0.000 Nucleated RBC % (auto) 0.0 Sodium 142 Potassium 3.2 L Chloride 105 Carbon Dioxide 29 Anion Gap 11 L BUN 14 Creatinine 1.02 Estim Creat Clear Calc 101.1 Estimated GFR > 60 Random Glucose 96 Calcium 9.0 Total Bilirubin 0.6 AST 27 ALT 22 Alkaline Phosphatase 93 Total Protein 6.3 L Albumin 4.1 Discharge Plan Discharge Anticipated Discharge Date/Time: 12/10/24 15:11 Patient Disposition: Home, Self-Care Discharge Diagnosis: Seizures 2/2 Marijuana induced cyclic vomiting causing intolerance of home meds Referrals: [facility] [Primary Care Provider, Medical] - 1 Week Discharge Medications: Continued lamotrigine [Lamictal] 100 mg tablet 400 mg PO BID ondansetron 8 mg tablet,disintegrating 8 mg PO BID PRN (Reason: nausea and vomiting) 7 Days Qty: 14 0RF Discharge Orders: Discharge Order (Routine); Ordered 12/10/24 Ordered By: Juanita Snyder Diet: Advance to usual diet Activity on Discharge: As tolerated Stand Alone Forms: Patient Portal Discharge page Print Language: Spanish Care Plan Goals: Abstinence from alcohol Following with Neurology Following up with primary care for generalized anxiety disorder Health Concerns: See above Plan of Treatment: See above Assessment: See above
[2024-12-10 15:23] VITALS: BP 122/62; PULSE 85; RESP 16; TEMP 36.7; O2SAT 97
--- NOTE | 2024-12-10 15:36 | MHC.CM.PN ---
Pt is medically cleared for discharge home self-care, he will arrange his own transport home.
[2024-12-13 22:03] LABS: Lamotrigine Lamictal 8.9 mcg/mL (2.5-15.0)
== END 2024-12-10 16:00 | disposition home or self-care (01) | DRG 101 ==
LOC: HO.ED 12:31 → HO.EDOVER 12:52 → HO.IMC 23:36
PROVIDERS: Admitting Provider Nurse Practitioner Acute Care; Emergency Provider Emergency Medicine; Visit Provider Student in an Organized Health Care Education/Training Program
DX: G40.909 Epilepsy, unspecified, not intractable, without status epilepticus (principal); A63.0 Anogenital (venereal) warts; F41.1 Generalized anxiety disorder; R11.2 Nausea with vomiting, unspecified; F12.90 Cannabis use, unspecified, uncomplicated; Z87.891 Personal history of nicotine dependence; Z79.899 Other long term (current) drug therapy
CPT/HCPCS: 36415; 80053; 80175; 80307; 81001; 82947; 83735; 85025; 93005; 95816; 95819; 99285; J0295; J0737; J1650; J1953; J2270; J2405; J3360; J3411; J7120

== ENCOUNTER 2024-12-08 12:35 | Outpatient (BNV) | payer OTHER, SELFPAY | END 2024-12-09 09:25 | PROVIDERS: Admitting Provider Nurse Practitioner Acute Care; Emergency Provider Emergency Medicine; Visit Provider Internal Medicine | DX: I49.9 Cardiac arrhythmia, unspecified (principal); R00.1 Bradycardia, unspecified | CPT/HCPCS: 93010 ==

== ENCOUNTER 2024-12-08 12:35 | Outpatient (BNV) | payer OTHER, SELFPAY | END 2024-12-10 13:00 | PROVIDERS: Admitting Provider Nurse Practitioner Acute Care; Emergency Provider Emergency Medicine; Visit Provider Psychiatry & Neurology Neurology | DX: R56.9 Unspecified convulsions (principal) ==

== ENCOUNTER → 2024-12-08 12:35 | Outpatient (BNV) | payer OTHER, SELFPAY | PROVIDERS: Admitting Provider Nurse Practitioner Acute Care; Emergency Provider Emergency Medicine; Visit Provider Nurse Practitioner Acute Care | DX: G40.909 Epilepsy, unspecified, not intractable, without status epilepticus (principal) | CPT/HCPCS: 99223; 99232; 99239 ==

== ENCOUNTER → 2024-12-08 12:35 | Outpatient (BNV) | payer OTHER, SELFPAY | PROVIDERS: Admitting Provider Nurse Practitioner Acute Care; Emergency Provider Emergency Medicine; Visit Provider Psychiatry & Neurology Neurology | DX: G40.909 Epilepsy, unspecified, not intractable, without status epilepticus (principal) | CPT/HCPCS: 99222 ==

== ENCOUNTER 2025-01-21 15:06 | Outpatient (AMB) | payer OTHER, SELFPAY ==
--- NOTE | 2025-01-21 15:08 | MHC.OFFVIS ---
Intake Visit Reasons: OV LT knee ACL recon/poss MMR 08/01/24 NE Intake Note: Fortino is a 39 year old male who presents today for a post operative appointment about 5 months s/p Left knee ACL reconstruction with allograft and Medial meniscus repair 08/01/24. 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 Allergies diazepam (From VALIUM) Allergy (Unknown, Verified 12/08/24 07:34) VOMIT hydrocodone (From VICODIN) Allergy (Unknown, Verified 12/08/24 07:34) VOMIT oxycodone (From PERCOCET) Allergy (Unknown, Verified 12/08/24 07:34) VOMIT HPI HPI OV LT knee ACL recon/poss MMR 08/01/24 NE: Details: Fortino is 6 months status post ACL reconstruction with medial meniscus repair. Overall he is doing well but he is not really able to engage in physical therapy as he would have hoped or as I would have hoped. He is working full-time and has no complaints. [facility] Medical History (Updated 12/18/24 @ 00:01 by Kian Tolentino) Bite wound of own tongue Seizure Back pain Lumbar vertebral fracture COVID-19 Condyloma acuminatum of penis Cyclic vomiting syndrome Condyloma acuminata Lesion of penis Anxiety Generalized skin lumps Broken leg Epilepsy Surgical History History of surgery on lower extremity History of surgical removal of skin lesion (~05/25/23) History of wisdom tooth extraction History of discectomy Family History Mother Alcoholism Breast cancer Substance use disorder Father Alcoholism Substance use disorder Parkinson disease Paternal Grandfather Lung cancer Maternal Grandmother Breast cancer Social History Household Members: Family Housing: House Are you a primary youth care specialist to a significant other at home: No Do you presently have visiting nurse or other home services: No Alcohol intake: current Alcohol intake frequency: holidays/special occasions only Alcohol type: beer and wine Patient Tobacco Use Status: Former Tobacco user Tobacco use type: Cigarette e-Cigarette/Vaping Use: Former Use Second Hand Smoke Exposure: No Substance Use Type: Marijuana service: No Current occupational status: employed Current occupation: [employer] Current occupational exposures/hazards: No Cognitive needs: No Hearing needs: No Vision needs: Yes Physical Exam Exam Exam: Full range of motion left knee. No effusion. Atrophic quad compared to right and 1+ Keisha's with firm endpoint. Assessment & Plan Assessment & Plan (1) Status post medial meniscal repair: Code(s): Z98.890 - Other specified postprocedural states Category: Surgical Plan: Status post meniscus repair with ACL reconstruction. The repair is stable in his knee has full range of motion. He is not strong and that leg however. He has been unable to fully engage with physical therapy. He works full-time. At this point we had a long discussion regarding best next steps. In my opinion I recommend stationary bike 30-45 minutes a day coupled with leg strengthening exercises. We reviewed leg press, quad extension and hamstring work. Is 6 months postop and so he can not engage in strengthening exercise but I would avoid cutting activities or running. I will see him back in 3 months' time (2) Status post reconstruction of anterior cruciate ligament: Code(s): Z98.890 - Other specified postprocedural states Category: Surgical Plan: Coding Level of Care Code Est Pt Level 3 (81457) Diagnoses Status post medial meniscal repair Z98.890 Status post reconstruction of anterior cruciate ligament Z98.890
--- OUTSIDE RECORDS SUMMARY | 2025-01-21 18:29 | XMS_ITS | Clinical Summary ---
Author Organization [facility] Address [address] [place] [phone] Phone Care Team Providers Care Parish Nurse Name Role Phone Ayana An MD Primary Care Provider [phone] Immunizations Immunization Administration Dates Next Due DTP [...] / Hypothroid Other Family history of Sudden /PA under age 55, Family history of Elevated [...] age to complete this topic Care Teams Parish Nurse Relationship Specialty Start Date End Date Ayana An MD [address] [place] [address] SHIRA Moralez [id number] PCP - General 11/05/16
--- OUTSIDE RECORDS SUMMARY | 2025-01-21 18:29 | XMS_ITS | Encounter Summary ---
Author Organization [facility] Address [address] [place] [address] Phone Care Team Providers Care Rater Associate Name Role Phone Ayana An MD Primary Care Provider [phone] Encounter Details Date Type Department Care Team (Late st Contact Info) Description 01/27/2017 Conversion Encounter [facility] [address] [place] [address] Social History Tobacco Use Types Packs/Day Years [...] on filedocumented in this encounter Care Teams Rater Associate Relationship Specialty Start Date End Date Ayana An MD [address] [place] [address] PCP - General 11/05/16 documented as of this encounter
== END 2025-01-21 15:56 | disposition home or self-care (01) ==
LOC: HO.HOS 15:07
PROVIDERS: Visit Provider Orthopaedic Surgery
DX: Z47.89 Encounter for other orthopedic aftercare (principal); Z98.890 Other specified postprocedural states
CPT/HCPCS: 99213

== ENCOUNTER → 2025-01-21 15:06 | Outpatient (BNVA) | payer OTHER, SELFPAY | PROVIDERS: Visit Provider Orthopaedic Surgery | DX: Z98.890 Other specified postprocedural states (principal) | CPT/HCPCS: 99212 ==